=== PATIENT | male | born 1975 | race Caucasian/White ===

== ENCOUNTER → 2017-05-04 | Outpatient (CLI) | payer OTHER ==
[2017-05-04 14:28] LABS: ALT 55 U/L (21-72); AST 35 U/L (17-59); Alkaline Phosphatase 56 U/L (38-126); Anion Gap 12 mmol/L; Blood Urea Nitrogen 14 mg/dL (9-20); Calcium 9.5 mg/dL (8.4-10.2); Carbon Dioxide 25 mmol/L (22-30); Chloride 104 mmol/L (98-107); Cholesterol 274 mg/dL (<200); Glucose 86 mg/dL (74-99); HDL Cholesterol 52 mg/dL (40-60); Non-African American GFR(MDRD) >60 (>60 ml/min/1.73 sqM); Sodium 141 mmol/L (137-145); Total Bilirubin 0.5 mg/dL (0.2-1.3); Total Protein 8.1 g/dL (6.3-8.2)
== END | disposition home or self-care (01) ==
LOC: LABWHC1 13:48
PROVIDERS: ATTEND Internal Medicine Cardiovascular Disease
DX: E78.5 Hyperlipidemia, unspecified (principal); I10 Essential (primary) hypertension; I25.10 Atherosclerotic heart disease of native coronary artery without angina pectoris
CPT/HCPCS: 36415; 80053; 80061

== ENCOUNTER 2017-10-10 10:36 | Day surgery (SDC) | payer OTHER ==
[2017-10-05 11:52] VITALS: BMI 32.2
[~2017-10-10 10:36] MED LIST: DEXAMETHASONE SOD PHOSPHATE 10 MG/ML 1 ML VIAL IV ONE; HYDROmorphone 0.5 MG/0.5 ML SYRINGE IVP PRN; LACTATED RINGERS 1,000 ML IV SCH; ONDANSETRON 4 MG/2 ML VIAL IVP ONE; Pre Op ABX Message 1 EACH MISC MISCELLANE ONE
[2017-10-10] MEDS ORDERED: fentaNYL (PF) 50 MCG/ML 2 ML AMP ONE (12:03)
[2017-10-10] MEDS ORDERED: MIDAZOLAM 2 MG/2 ML VIAL ONE (12:03)
[2017-10-10] MEDS ORDERED: DEXAMETHASONE SOD PHOS (MDV) 100 MG/10 ML VIAL ONE (12:03)
[2017-10-10] MEDS ORDERED: LIDOCAINE 1% INJ 10MG/ML (20 ML MDV) ONE (12:03)
[2017-10-10] MEDS ORDERED: SUCCINYLCHOLINE CHLORIDE VIAL 200 MG/10 ML VIAL IV ONE (12:03)
[2017-10-10] MEDS ORDERED: PROPOFOL 10 MG/ML 20 ML VIAL IV ONE (12:03)
[2017-10-10] MEDS ORDERED: LIDOCAINE 1%-EPI 1:100,000 20 ML VIAL SQ ONE ×2 (12:26)
[2017-10-10] MEDS ORDERED: OXYMETAZOLINE 0.05% NASL SPRAY 1 SPRAY BOTTLE NASAL ONE (12:26)
[2017-10-10] MEDS ORDERED: BACITRACIN 500 UNIT/GM OINT 28.4 GM TUBE TOPICAL ONE (12:47)
--- NOTE | 2017-10-10 12:54 | P.OP ---
Date of Procedure: 10/10/17 Preoperative Diagnosis: Deviated nasal septum Inferior turbinate hypertrophy Postoperative Diagnosis: Same Procedure(s) Performed: Septoplasty Outfracture and submucous resection of the inferior turbinates Anesthesia: LAURA Surgeon: Royal Arriaza Estimated Blood Loss (ml): 5 Pathology: other (Nasal septal bone and cartilage) Condition: stable Disposition: PACU Indications for Procedure: This is a 42-year-old white male with a chronic history of nasal airway obstruction bilaterally who did not improve with medical management Operative Findings: Septum deviated to the left anteriorly to the right posteriorly and bilateral inferior turbinate hypertrophy Description of Procedure: The patient was brought in the operative suite and placed in a supine position. The patient underwent induction of general anesthesia with oral endotracheal intubation without difficulty. The patient was prepped and draped in usual aseptic fashion. 1% lidocaine with 1-100,000 epinephrine was infused submucosally both sides of the nasal septum. While this was taking vasoconstrictive effect the inferior turbinates were infractured with the [place] elevator with partial submucous resection inferior turbinates performed with Coblation and then outfractured with the [place] elevator. The Coblation ablated a portion of the submucosal soft tissue. A left hemitransfixion incision was made with the mucoperichondrial and mucoperiosteal flap on the left elevated. Bony cartilaginous junction was disarticulated and mucoperiosteal left on the right was elevated. Bony nasal septal deformities were removed with Isaac forceps. An inferior cartilaginous strip was removed leaving a full 1.5 cm caudal strut. Checking intranasally this corrected the nasoseptal deformities and the hemitransfixion incision was closed with a running 4-0 chromic suture. Bilateral Kate airway splints coated with bacitracin ointment placed in nasal cavities and sutured trans-septally with a 4-0 Vicryl suture. The patient was suctioned in oral gastric fashion and was allowed to emerge from general anesthesia having tolerated procedure well. The patient was extubated in the operating suite and transferred to the postop recovery area in satisfactory condition.
[2017-10-10 13:18] VITALS: TEMP 97.7
[2017-10-10] MEDS ORDERED: MORPHINE SULFATE 4 MG/ML SYRINGE IV ONE ×3 (13:29→14:10)
[2017-10-10] MEDS ORDERED: ONDANSETRON 4 MG/2 ML VIAL IVP ONE (13:34)
[2017-10-10] MEDS ORDERED: HYDROcodone/APAP 5-325MG 1 EACH TAB PO ONE (15:04)
[2017-10-10 15:54] VITALS: BP 114/72; PULSE 68; RESP 18
== END 2017-10-10 16:17 | disposition home or self-care (01) ==
LOC: OR 10:36
PROVIDERS: ATTEND Otolaryngology
DX: J34.2 Deviated nasal septum (principal); J34.3 Hypertrophy of nasal turbinates; E78.5 Hyperlipidemia, unspecified; J44.9 Chronic obstructive pulmonary disease, unspecified; I25.2 Old myocardial infarction; G43.909 Migraine, unspecified, not intractable, without status migrainosus; E78.00 Pure hypercholesterolemia, unspecified; Z95.5 Presence of coronary angioplasty implant and graft; Z79.899 Other long term (current) drug therapy; Z91.041 Radiographic dye allergy status; Z91.030 Bee allergy status; Z91.013 Allergy to seafood; Z91.048 Other nonmedicinal substance allergy status; Z91.09 Other allergy status, other than to drugs and biological substances; Z79.891 Long term (current) use of opiate analgesic; Z79.52 Long term (current) use of systemic steroids; Z79.2 Long term (current) use of antibiotics; Z82.49 Family history of ischemic heart disease and other diseases of the circulatory system
CPT/HCPCS: 88300; 30520; 30140; J2250; J0330; J2270; J1100 ×2; J2405; J2001; J3010; J2704

== ENCOUNTER → 2022-05-19 | Outpatient (CLI) | payer OTHER ==
--- NOTE | 2022-05-21 08:43 | CT ---
EXAMINATION TYPE: CT abdomen pelvis wo con DATE OF EXAM: 05/20/2022 COMPARISON: None HISTORY: Abdominal pain, lack of appetite, blood in stool x1 year. Oral contrast only CT DLP: 1194.70 mGycm Automated exposure control for dose reduction was used. TECHNIQUE: Helical acquisition of images from the lung bases through the pelvis. Patient received or al contrast only. FINDINGS: Lack of intravenous contrast could compromise sensitivity. There is no evident pneumoperito neum, retroperitoneal adenopathy, or ascites. Aorta shows normal caliber. LUNG BASES: No significant abnormality is appreciated. AORTA: No significant abnormality is appreciated. LIVER/GB: Liver shows low attenuation likely due to hepatic steatosis. Patient is post cholecystectom y.. PANCREAS: No significant abnormality is seen. SPLEEN: No significant abnormality is seen. ADRENALS: No significant abnormality is seen. KIDNEYS: No significant abnormality is seen. REPRODUCTIVE ORGANS: No significant abnormality is seen. URINARY BLADDER: No significant abnormality is seen, nondistended. BOWEL: Thickening of the sigmoid colon may be due to lack of distention or muscular hypertrophy, ind eterminate, no evident bowel obstruction. No evident appendicitis. FREE AIR: No Free Air is visible. ASCITES: None visible. PELVIC ADENOPATHY: None visualized. RETROPERITONEAL ADENOPATHY: No Retroperitoneal Adenopathy visible. OSSEOUS STRUCTURES: Spinal spondylosis noted. IMPRESSION: HEPATIC STEATOSIS, POSTOP CHANGES, NONCONTRAST EXAM, NONSPECIFIC FINDINGS DESCRIBED ABOVE.
== END | disposition home or self-care (01) ==
LOC: RADCTMAIN 16:57
PROVIDERS: ATTEND Internal Medicine Gastroenterology
DX: K76.0 Fatty (change of) liver, not elsewhere classified (principal)
CPT/HCPCS: 74176

== ENCOUNTER → 2022-10-23 | Day surgery (SDC) | payer OTHER ==
[2022-10-23 07:19] VITALS: BP 139/98; PULSE 64; RESP 18; TEMP 97.1
== END ==
LOC: ORWHC2ENDO 06:26
PROVIDERS: ATTEND Internal Medicine Gastroenterology
DX: R10.9 Unspecified abdominal pain (principal)
CPT/HCPCS: 91110

== ENCOUNTER 2023-05-05 23:44 | Inpatient (IN) | payer OTHER ==
[2023-05-06] MEDS ORDERED: ASPIRIN 81 MG PO STA ×2 (00:11→00:34)
[2023-05-06] MEDS ORDERED: NITROGLYCERIN SL TABS 0.4 MG TAB SUBLINGUAL STA (00:11)
--- NOTE | 2023-05-06 00:14 | ED ---
Chest Pain HPI - General Chief Complaint: Chest Pain Stated Complaint: Chest Pain Time Seen by Provider: 05/06/23 00:02 Source: patient Mode of arrival: ambulatory Limitations: no limitations - History of Present Illness Initial Comments: This patient is 47-year-old man who presents evaluation of upper substernal chest pain that developed within the past couple of hours. The patient notes associated nausea and dyspnea. Patient has not noted worsening or relieving factors. MD Complaint: chest pain Onset/Timin -: hour(s) Onset: during rest Pain Location: substernal Severity: moderate Quality: other (Cramping) Consistency: constant Improves With: nothing Worsens With: nothing Anginal Symptoms: nausea Treatments Prior to Arrival: none - Related Data Home Medications Medication Instructions Recorded Confirmed Superbeets 1 tab PO DAILY 05/06/23 05/06/23 Allergies Allergy/AdvReac Type Severity Reaction Status Date / Time Iodinated Contrast Media AdvReac HANDS/FEET Verified 05/10/23 06:22 [Iodinated Contrast- Oral SWELL THEN and IV Dye] SKIN PEELS OFF Review of Systems ROS Statement: Those systems with pertinent positive or pertinent negative responses have been documented in the HPI. ROS Other: All systems not noted in ROS Statement are negative. Constitutional: Denies: fever, chills, weakness Respiratory: Denies: cough, dyspnea Cardiovascular: Reports: chest pain. Denies: palpitations, orthopnea, edema, syncope Gastrointestinal: Reports: nausea. Denies: abdominal pain, vomiting, diarrhea Genitourinary: Denies: dysuria, hematuria Musculoskeletal: Denies: back pain Skin: Denies: rash Neurological: Denies: headache, weakness EKG Findings - EKG Results: EKG: interpreted by ERMElli, sinus rhythm EKG shows: bradycardia (Rate 49 bpm) - Blocks, [place], Hypertrophy, ST Abn: Chamber hypertrophy or enlargement: only voltage criteria for left ventricular hypertrophy Past Medical History Past Medical History: Asthma, Coronary Artery Disease (CAD), GERD/Reflux, Hearing Disorder / Deafness, Hyperlipidemia, Hypertension, Myocardial Infarction ([place]), Skin Disorder Additional Past Medical History / Comment(s): Blood loss and vomiting in the mornings/pt states occasionally will see bright red blood in stool but also states has had hemorrhoids in the past/hemorroids banded, hiatal hernia, sinus problems, recent cat scan of chest which pt states was told could asthma or the "starting of copd", pt states he gets SOB fairly easily, concussion many years ago, dry hands/skin cracks, bilateral tinnitis. Last Myocardial Infarction Date:: 2007 History of Any Multi-Drug Resistant Organisms: None Reported Past Surgical History: Cholecystectomy, Heart Catheterization Additional Past Surgical History / Comment(s): WISDOM TEETH REMOVED UNDER ANESTHESIA. SMALL TUMOR REMOVED FROM LT ARM/BENIGN. COLONOSCOPY/some "inflammed areas" Past Anesthesia/Blood Transfusion Reactions: Motion Sickness Additional Past Anesthesia/Blood Transfusion Reaction / Comment(s): Pt has never had a blood transfusion. Past Psychological History: No Psychological Hx Reported Smoking Status: Never smoker - Past Family History Mother Family Medical History: No Reported History Additional Family Medical History / Comment(s): kidney stones, cholecystectomy Father Family Medical History: Coronary Artery Disease (CAD) Additional Family Medical History / Comment(s): Patient's paternal grandfather had coronary artery disease with CABG in his 50s General Exam Limitations: no limitations General appearance: alert, in no apparent distress Head exam: Present: atraumatic, normocephalic Eye exam: Present: normal appearance. Absent: scleral icterus, conjunctival injection ENT exam: Present: normal oropharynx Neck exam: Present: normal inspection Respiratory exam: Present: normal lung sounds bilaterally. Absent: respiratory distress, wheezes, rales, rhonchi, stridor, accessory muscle use Cardiovascular Exam: Present: normal rhythm, bradycardia, normal heart sounds. Absent: systolic murmur, diastolic murmur, rubs, gallop GI/Abdominal exam: Present: soft. Absent: distended, tenderness, guarding, rebound, rigid, mass Extremities exam: Present: normal inspection, normal capillary refill. Absent: pedal edema, calf tenderness Back exam: Present: normal inspection. Absent: CVA tenderness (R), CVA tenderness (L) Neurological exam: Present: alert Skin exam: Present: warm, dry, intact, normal color. Absent: rash Course Vital Signs 05/05/23 05/06/23 05/06/23 23:52 00:23 02:00 Temperature 98.2 F Pulse Rate 48 L 50 L 54 L Respiratory 18 19 19 Rate Blood Pressure 108/74 128/90 127/91 O2 Sat by Pulse 98 Oximetry 05/06/23 05/06/23 05/06/23 03:43 05:58 10:34 Temperature Pulse Rate 56 L 47 L 62 Respiratory 19 18 16 Rate Blood Pressure 134/94 112/70 119/74 O2 Sat by Pulse 100 Oximetry Chest Pain MDM - [facility] Patient's 47-year-old man with chest pain found to have mild elevation of troponin. The initial ECG does appear to show some less than [address] elevation in leads 1 and aVL. The patient started on aspirin, nitrates, morphine, heparin. Case discussed with Dr. Choi. Patient does continue to have some symptoms over mild. At this point medical management recommended and they'll see patient first thing. The patient had chest x-ray which I interpreted as being negative for acute infiltrate, thorax, congestive heart failure. Was pt. sent in by a medical professional or institution (, PA, AWS CONSULTANT, urgent care, hospital, or fpc...) When possible be specific @ -[No] Did you speak to anyone other than the patient for history (EMS, parent, family, police, friend...)? What history was obtained from this source @ -[No] Did you review nursing and triage notes (agree or disagree)? Why? @ -[I reviewed and agree with nursing and triage notes] Were old charts reviewed (outside hosp., previous admission, EMS record, old EKG, old radiological studies, urgent care reports/EKG's, fpc records)? Report findings @ -[No old charts were reviewed] Differential Diagnosis (chest pain, altered mental status, abdominal pain women, abdominal pain men, vaginal bleeding, weakness, fever, dyspnea, syncope, headache, dizziness, GI bleed, back pain, seizure, CVA, palpatations, mental health, musculoskeletal)? @ -[Differential Chest Pain: Stable Angina, Unstable Angina, STEMI, NSTEMI Aortic Dissection, Pneumothorax, Musculoskeletal, Esophageal Spasm GERD, Cholecystitis, Pancreatitis, Zoster, this is not meant to be an all-inclusive list. EKG interpreted by me (3pts min.). @ -[I interpreted As above] X-rays interpreted by me (1pt min.). @ -[I interpreted as above CT interpreted by me (1pt min.). @ -[None done] U/S interpreted by me (1pt. min.). @ -[None done] What testing was considered but not performed or refused? (CT, X-rays, U/S, labs)? Why? @ -[None] What meds were considered but not given or refused? Why? @ -[None] Did you discuss the management of the patient with other professionals (professionals i.e. , PA, AWS CONSULTANT, lab, RT, psych nurse, social service assistant, field representatives director, teacher, surveillance officer, case repairer)? Give summary @ -[I discussed the case with both the admitting physician and with siphon operator on-call and there treatment recommendations are incorporated Was smoking cessation discussed for >3mins.? @ -[No] Was critical care preformed (if so, how long)? @ -[Yes, 35 minutes Were there social determinants of health that impacted care today? How? (Homelessness, low income, unemployed, alcoholism, drug addiction, transportation, low edu. Level, literacy, decrease access to med. care, care home, rehab)? @ -[No] Was there de-escalation of care discussed even if they declined (Discuss DNR or withdrawal of care, Hospice)? DNR status @ -[No] What co-morbidities impacted this encounter? (DM, HTN, Smoking, COPD, CAD, Cancer, CVA, ARF, Chemo, Hep., AIDS, mental health diagnosis, sleep apnea, morbid obesity)? @ -[None] Was patient admitted / discharged? Hospital course, mention meds given and route, prescriptions, significant lab abnormalities, going to OR and other pertinent info. @ -[The patient is admitted to have further evaluation and treatment for chest pain/acute coronary syndrome. Undiagnosed new problem with uncertain prognosis? @ -[No] Drug Therapy requiring intensive monitoring for toxicity (Heparin, Nitro, Insulin, Cardizem)? @ -[Heparin Were any procedures done? @ -[No] Diagnosis/symptom? @ -[Acute coronary syndrome with elevated troponin Acute, or Chronic, or Acute on Chronic? @ -[Acute Uncomplicated (without systemic symptoms) or Complicated (systemic symptoms)? @ -[default] Side effects of treatment? @ -[No] Exacerbation, Progression, or Severe Exacerbation? @ -[No] Poses a threat to life or bodily function? How? (Chest pain, [place], [place], pneumonia, PE, COPD, DKA, ARF, appy, cholecystitis, CVA, Diverticulitis, Homicidal, Suicidal, threat to staff... and all critical care pts) @ -[Yes untreated chest pain of cardiac origin may progress to [place]/ Disposition Clinical Impression: Coronary syndrome, acute Disposition: ADMITTED IP TO THIS HOSP Condition: Serious Is patient prescribed a controlled substance at d/c from ED?: No
[2023-05-06 00:27] LABS: Basophils % (A) 0 %; Eosinophils # (A) 0.2 k/uL (0-0.7); Eosinophils % (A) 3 %; HCT 40.8 % (39.0-53.0); HGB 13.7 gm/dL (13.0-17.5); Lymphocytes # (A) 2.9 k/uL (1.0-4.8); Lymphocytes % (A) 46 %; MCH 31.6 pg (25.0-35.0); MCHC 33.5 g/dL (31.0-37.0); MCV 94.2 fL (80.0-100.0); Mean Platelet Volume 7.5; Monocytes # (A) 0.5 k/uL (0-1.0); Monocytes % (A) 7 %; Neutrophils # (A) 2.6 k/uL (1.3-7.7); Neutrophils % (A) 41 %; Platelet Count 320 k/uL (150-450); RBC 4.33 m/uL (4.30-5.90); RDW 12.9 % (11.5-15.5); WBC 6.3 k/uL (3.8-10.6)
[2023-05-06 00:49] LABS: ALT 35 U/L (4-49); AST 34 U/L (17-59); African American GFR (CKD) 87 (>60 ml/min/1.73 sqM); Albumin 4.3 g/dL (3.5-5.0); Alkaline Phosphatase 52 U/L (38-126); Amylase 71 U/L (30-110); Anion Gap 14 mmol/L; Blood Urea Nitrogen 13 mg/dL (9-20); Calcium 9.1 mg/dL (8.4-10.2); Carbon Dioxide 21 mmol/L (22-30); Chloride 103 mmol/L (98-107); Glucose 107 mg/dL (74-99); Lipase 99 U/L (23-300); Non-African American GFR(CKD) 76 (>60 ml/min/1.73 sqM); Sodium 138 mmol/L (137-145); Total Bilirubin 0.3 mg/dL (0.2-1.3); Total Protein 7.5 g/dL (6.3-8.2)
[2023-05-06 00:50] LABS: INR 0.9 (<1.2); Partial Thromboplastin Time 24.5 sec (22.0-30.0); Prothrombin Time 9.9 sec (9.0-12.0)
[2023-05-06] MEDS ORDERED: HEPARIN SODIUM 1,000 UN/ML (10ML VL) IV ONE ×2 (01:15→13:15)
[2023-05-06] MEDS ORDERED: MORPHINE SULFATE 4 MG/ML SYRINGE IV STA (01:17)
[2023-05-06] MEDS: HEPARIN SOD,PORK IN 0.45% NACL 25,000 UNIT in 0.45% NACL 1 250ML.BAG IV SCH ×2 (01:25→14:40)
[2023-05-06] MEDS ORDERED: ATORVASTATIN 80 MG TAB PO STA (01:29)
[2023-05-06] MEDS ORDERED: NITROGLYCERIN OINT 1 INCH/GM PACKET TOPICAL STA (01:29)
[2023-05-06] MEDS ORDERED: NITROGLYCERIN SL TABS 0.4 MG TAB SUBLINGUAL PRN (01:33)
--- NOTE | 2023-05-06 02:26 | XR ---
EXAM: XR Chest, 2 Views CLINICAL HISTORY: ITS.REASON XR Reason: Chest Pain TECHNIQUE: Frontal and lateral views of the chest. COMPARISON: 09/20/2021. FINDINGS: Lungs: Unremarkable. No consolidative change. Pleural space: Unremarkable. No pneumothorax. No pleural effusions. Heart: Unremarkable. No cardiomegaly. Mediastinum: Cardiomediastinal silhouette unremarkable. Bones/joints: The osseous structures and soft tissues are unremarkable. Mild degenerative disc disease of the thoracic spine. IMPRESSION: No active disease.
[2023-05-06] MEDS: HEPARIN SODIUM 1,000 UN/ML (10ML VL) IV PRN (10:21)
[2023-05-06] MEDS: ATORVASTATIN 80 MG TAB PO SCH (10:30)
[2023-05-06] MEDS: NITROGLYCERIN OINT 1 INCH/GM PACKET TOPICAL SCH ×4 (10:30→18:23)
--- NOTE | 2023-05-06 12:15 | P.HPIM ---
History of Present Illness H&P Date: 05/06/23 History of present illness; patient 47-year-old gentleman with past medical hist ory significant for hypertension, hyperlipidemia and the ER because of chest pain that started last night. Patient stated he was all right last night when he started noticing central chest pain which was severe in intensity, nonradiating, associated with shortness of breath. Patient was complaining of nausea that time. No complain of diaphoresis. No aggravating or relieving factors associated with chest pain. Denied any palpitation. Denied any fever or chills. Because of chest pain, patient came to ER. Initial lab work done in the ER showed WBC 6.3, hemoglobin 13.7, platelet count 320, d-dimer 0.34 sodium 1:30, potassium 4, BUN 13, creatinine 1.14, troponin 0.257 EKG done in the ER heart rate 49, slight ST elevation noticeable in leads 1 and aVL, no reciprocal changes or T-wave inversion seen. Chest x-ray done in the ER showed no active disease Patient was started on heparin, ER physician discussed the case with on-call cardiology and EKGs, they recommended starting heparin and admission to medicine service REVIEW OF SYSTEMS: CONSTITUTIONAL: No fever, no malaise, no fatigue. HEENT: No recent visual problems or hearing problems. Denied any sore throat. CARDIOVASCULAR: As mentioned in HPI PULMONARY: As mentioned in HPI GASTROINTESTINAL: No diarrhea, no nausea, no vomiting, no abdominal pain. NEUROLOGICAL: No headaches, no weakness, no numbness. HEMATOLOGICAL: Denies any bleeding or petechiae. GENITOURINARY: Denies any burning micturition, frequency, or urgency. MUSCULOSKELETAL/RHEUMATOLOGICAL: Denies any joint pain, swelling, or any muscle pain. ENDOCRINE: Denies any polyuria or polydipsia. The rest of the 14-point review of systems is negative. PHYSICAL EXAMINATION: GENERAL: The patient is alert and oriented x3, not in any acute distress. Well developed, well nourished. HEENT: Pupils are round and equally reacting to light. EOMI. No scleral icterus. No conjunctival pallor. Normocephalic, atraumatic. No pharyngeal erythema. No thyromegaly. CARDIOVASCULAR: S1 and S2 present. No murmurs, rubs, or gallops. PULMONARY: Chest is clear to auscultation, no wheezing or crackles. ABDOMEN: Soft, nontender, nondistended, normoactive bowel sounds. No palpable organomegaly. MUSCULOSKELETAL: No joint swelling or deformity. EXTREMITIES: No cyanosis, clubbing, or pedal edema. NEUROLOGICAL: Gross neurological examination did not reveal any focal deficits. SKIN: No rashes. Assessment and plan Acute coronary syndrome Sinus Bradycardia Hyperlipidemia Monitor vital signs Monitor CBC Monitor CMP Continue telemetry monitoring Trend troponin Ordered 2-D echo Continue pharmacy dose heparin Ordered Nitropaste Consult cardiology Resume home meds Labs and medication were reviewed.. Continue same treatment. Continue with symptomatic treatment. Resume home medication. Monitor labs and vitals. DVT and GI prophylaxis. Further recommendations as per clinical course of the patient Dictation was produced using [employer] dictation software. please excuse any grammatical, word or spelling errors. Past Medical History Past Medical History: Asthma, Coronary Artery Disease (CAD), GERD/Reflux, Hearing Disorder / Deafness, Hyperlipidemia, Hypertension, Myocardial Infarction ([place]), Skin Disorder Additional Past Medical History / Comment(s): Blood loss and vomiting in the mornings/pt states occasionally will see bright red blood in stool but also states has had hemorrhoids in the past/hemorroids banded, hiatal hernia, sinus problems, recent cat scan of chest which pt states was told could asthma or the "starting of copd", pt states he gets SOB fairly easily, concussion many years ago, dry hands/skin cracks, bilateral tinnitis. Last Myocardial Infarction Date:: 2007 History of Any Multi-Drug Resistant Organisms: None Reported Past Surgical History: Cholecystectomy, Heart Catheterization Additional Past Surgical History / Comment(s): WISDOM TEETH REMOVED UNDER ANESTHESIA. SMALL TUMOR REMOVED FROM LT ARM/BENIGN. COLONOSCOPY/some "inflammed areas" Past Anesthesia/Blood Transfusion Reactions: Motion Sickness Additional Past Anesthesia/Blood Transfusion Reaction / Comment(s): Pt has never had a blood transfusion. Past Psychological History: No Psychological Hx Reported Smoking Status: Never smoker - Past Family History Mother Family Medical History: No Reported History Additional Family Medical History / Comment(s): kidney stones, cholecystectomy Medications and Allergies Home Medications Medication Instructions Recorded Confirmed Type Superbeets 1 tab PO DAILY 05/06/23 05/06/23 History Allergies Allergy/AdvReac Type Severity Reaction Status Date / Time Iodinated Contrast Media AdvReac HANDS/FEET Verified 10/23/22 07:12 [Iodinated Contrast- Oral SWELL THEN and IV Dye] SKIN PEELS OFF Physical Exam Vitals: Vital Signs Temp Pulse Resp BP Pulse Ox 05/06/23 05:58 47 L 18 112/70 05/06/23 03:43 56 L 19 134/94 05/06/23 02:00 54 L 19 127/91 05/06/23 00:23 50 L 19 128/90 05/05/23 23:52 98.2 F 48 L 18 108/74 98 Intake and Output 05/05/23 05/06/23 05/06/23 22:59 06:59 14:59 Other: Weight 108.862 kg Results CBC & Chem 7: 05/06/23 00:18 05/06/23 00:18 Labs: Abnormal Lab Results - Last 24 Hours (Table) 05/06/23 05/06/23 05/06/23 Range/Units 00:18 00:18 03:38 APTT (22.0-30.0) sec Carbon Dioxide 21 L (22-30) mmol/L Glucose 107 H (74-99) mg/dL Troponin I 0.257 H* 0.272 H* (0.000-0.034) ng/mL 05/06/23 05/06/23 Range/Units 07:24 07:24 APTT 30.6 H (22.0-30.0) sec Carbon Dioxide (22-30) mmol/L Glucose (74-99) mg/dL Troponin I 1.140 H* (0.000-0.034) ng/mL
[2023-05-06] MEDS ORDERED: VERAPAMIL 2.5 MG/ML 2 ML AMP ONE (12:39)
[2023-05-06] MEDS ORDERED: LIDOCAINE 1% INJ 10MG/ML (20 ML MDV) ONE (12:39)
[2023-05-06] MEDS ORDERED: IV FLUID CONTINUATION 500 ML IV ONE (12:55)
[2023-05-06] MEDS ORDERED: diphenhydrAMINE 50 MG/ML 1 ML VIAL ONE (12:56)
[2023-05-06] MEDS ORDERED: methylPREDNISolone SOD SUCCI 125 MG/2 ML VIAL ONE (12:57)
[2023-05-06] MEDS ORDERED: diphenhydrAMINE 50 MG/ML 1 ML VIAL IVP ONE (13:01)
[2023-05-06] MEDS ORDERED: methylPREDNISolone SOD SUCCI 125 MG/2 ML VIAL IV ONE (13:01)
[2023-05-06] MEDS ORDERED: MIDAZOLAM 2 MG/2 ML VIAL IVP ONE (13:02)
[2023-05-06] MEDS ORDERED: LIDOCAINE 1% INJ 10MG/ML (20 ML MDV) SQ ONE (13:03)
[2023-05-06] MEDS ORDERED: VERAPAMIL SYRINGE (5 MG/10 ML) INTRAARTER ONE (13:04)
[2023-05-06] MEDS ORDERED: IOPAMIDOL-370 100ML BTL INJ ONE ×3 (13:14→13:17)
[2023-05-06] MEDS ORDERED: RX INFO: IV CONTRAST WAS GIVEN 1 EACH MISC MISCELLANE PRN (13:31)
--- NOTE | 2023-05-06 13:36 | P.PCN ---
Date of Procedure: 05/06/23 Operative Findings: CARDIAC CATHETERIZATION PERFORMING PHYSICIAN: Kyle Talavera MD, RPVI PROCEDURE PERFORMED: 1. Selective right and left coronary angiogram 2. Left heart catheterization 3. Ultrasound-guided access of the right radial artery INDICATION: Acute non-ST elevation myocardial infarction COMPLICATION: None APPROACH: Right radial artery LEVEL OF SEDATION: Moderate with a sedation length of 19 minutes PROCEDURE DESCRIPTION: After obtaining an informed consent, the patient was brought to cardiac union laborer. Local anesthesia was performed using lidocaine subcutaneously. The right radial artery was cannulated using Seldinger technique, the guidewire passed easily, following that we advanced a 5-Lith[place]ian sheath dilator assembly, the wire and dilator were removed and sheath was flushed. Following that, 2 mg of verapamil along with 4000 unit heparin were given. Selective right and left coronary angiogram using a 6-Lithuanian JR4 and JL 3.5 catheters. Following that we did left heart catheterization using 6-Lithuanian pigtail catheter. The procedure was completed there was no complication. SELECTIVE CORONARY ANGIOGRAM: The right coronary artery: Large-caliber vessel and a dominant vessel. The RCA has moderate disease in the midportion. No high-grade stenosis was identified. Distally bifurcates into PDA and PLV branches and both appear to have mild disease only Left main: Has mild disease only. Bifurcates into an LCx and LAD The left circumflex: Medium caliber vessel. The left circumflex appears to be chronically occluded in the midportion. Gives rises into the first OM branch which works as a ramus intermedius has a critical lesion in the ostium. OM1 appeared to be small to medium caliber vessel appears to be chronically occluded as well The left anterior descending artery: Large caliber vessel. The proximal LAD has a tubular lesion appears to be in the range of 70%. The mid LAD has another lesion appears to be in the range of 70-80%. The LAD after that as other tibial lesion after the bifurcation of a medium size diagonal branch and the LAD lesion appears to be in the range of 99.9% HEMODYNAMICS: The LVEDP was 12 mmHg was no significant gradient across aortic valve CONCLUSION: 1. Severe and diffuse disease involving the left anterior descending artery with disease in the proximal and mid and mid to distal portion. 2. Chronic total occlusion of the left circumflex 3. Intermediate disease involving the right coronary artery appeared to be nonflow limiting 4. Normal left-sided filling POSTPROCEDURE MANAGEMENT: Giving the above anatomy with the LAD I would advise the patient to be evaluated by cardiothoracic surgeon for the evaluation of CABG
[2023-05-06] MEDS ORDERED: SODIUM CHLORIDE 0.9% 1,000 ML IV SCH (13:45)
[2023-05-06 13:52] LABS: Glucose,Whole Blood 87 mg/dL (70-110)
--- NOTE | 2023-05-06 15:12 | P.CRDCN ---
History of Present Illness Consult date: 05/06/23 Consult reason: chest pain History of present illness: This is Mike Spencer NP, I'm dictating on behalf of Dr. Choi's H&P and A&P The patient was interviewed and examined. HPI: Patient is a pleasant 47-year-old male with a past medical history significant for asthma, coronary artery disease, GERD, hyperlipidemia, hypertension, myocardial infarction, bilateral tinnitus, asthma, and dry skin who presented to the hospital with complaints of chest pain. Patient reports that he started experiencing chest pain yesterday, that was substernal, mostly pressure in sensation, that was radiating up his neck. Patient states this pressure continued until approximately the last hour prior to us evaluating the patient. He states it is much better at this time. Patient does have a significant medical history for a myocardial infarction at 33 years of age, but he had a cardiac catheterization at that time and states that it was clear for a ny vessel disease. At this time the patient denies chest pain, shortness of breath, heart palpitations, nausea, vomiting, diarrhea, dizziness, and syncope. Patient demonstrated initial elevated troponin in the emergency department. Patient's EKG demonstrated sinus bradycardia with no obvious significant changes except for possible mild ST elevation in lead I. patient is being recommended for PCI today. ROS: [No fever, chills, or rigors] [no cough, phlegm, or expectoration] [no nausea, vomiting, or diarrhea] [no hematuria, dysuria] [no musculoskelatal complaints] [no strokes or seizures] [no skin lesions] EXAMINATION: GENERAL: Well-appearing, well-nourished and in no acute distress. NECK: Supple without JVD or thyromegaly. LUNGS: Breath sounds clear to auscultation bilaterally. Respiration equal and unlabored. No wheezes, rales or rhonchi. HEART: Regular rate and rhythm without murmurs, rubs or gallops. S1 and S2 heard. EXTREMITIES: Normal range of motion, no edema. No clubbing or cyanosis. Peripheral pulses intact and strong. REVIEW OF LABS, ECG & MEDICAL DATA: LABS: White count 6.3, he will and 13.7, platelets 320, d-dimer 0.34, sodium 138, potassium 4.0, chloride 103, BUN 13, creatinine 1.14, hemoglobin A1c 5.6, calcium 9.1, magnesium 2.0, troponin 3-0.257, 0.272, 1.140 EKG: Sinus bradycardia, possible ST elevation in lead I, first-degree block IMAGING: Chest x-ray dated 05/06/2023 demonstrates no active disease. VITALS: Pulse 47, respirations 18, blood pressure 112/70, O2 saturation 100% on room air IMPRESSION: 1. Non-ST elevated myocardial infarction 2. Sinus bradycardia with first-degree heart block 3. Severe triple-vessel disease, per PCI. PLAN: Check lipid panel. Patient was scheduled for PCI with Dr. Talavera, which was completed. Patient has severe and diffuse disease involving the left anterior descending artery with disease in the proximal and mid to distal portion, chronic total occlusion of the left circumflex, intermediate disease involving the right coronary artery appearing to be nonflow limiting, and normal left-sided filling. Due to patient's PCI results, recommend consultation with cardiothoracic surgery for possible CABG. Continue IV heparin at this time. Please insure patient follows up with Dr. Choi in the office after discharge. Further recommendations based on patient's clinical course. Thank you for the consult and allowing us to participate in the care of this patient. Past Medical History Past Medical History: Asthma, Coronary Artery Disease (CAD), GERD/Reflux, Hearing Disorder / Deafness, Hyperlipidemia, Hypertension, Myocardial Infarction ([place]), Skin Disorder Additional Past Medical History / Comment(s): Blood loss and vomiting in the mornings/pt states occasionally will see bright red blood in stool but also states has had hemorrhoids in the past/hemorroids banded, hiatal hernia, sinus problems, recent cat scan of chest which pt states was told could asthma or the "starting of copd", pt states he gets SOB fairly easily, concussion many years ago, dry hands/skin cracks, bilateral tinnitis. Last Myocardial Infarction Date:: 2007 History of Any Multi-Drug Resistant Organisms: None Reported Past Surgical History: Cholecystectomy, Heart Catheterization Additional Past Surgical History / Comment(s): WISDOM TEETH REMOVED UNDER ANESTHESIA. SMALL TUMOR REMOVED FROM LT ARM/BENIGN. COLONOSCOPY/some "inflammed areas" Past Anesthesia/Blood Transfusion Reactions: Motion Sickness Additional Past Anesthesia/Blood Transfusion Reaction / Comment(s): Pt has never had a blood transfusion. Past Psychological History: No Psychological Hx Reported Smoking Status: Never smoker - Past Family History Mother Family Medical History: No Reported History Additional Family Medical History / Comment(s): kidney stones, cholecystectomy Medications and Allergies Home Medications Medication Instructions Recorded Confirmed Type Superbeets 1 tab PO DAILY 05/06/23 05/06/23 History Allergies Allergy/AdvReac Type Severity Reaction Status Date / Time Iodinated Contrast Media AdvReac HANDS/FEET Verified 10/23/22 07:12 [Iodinated Contrast- Oral SWELL THEN and IV Dye] SKIN PEELS OFF Physical Exam Vitals: Vital Signs Temp Pulse Resp BP Pulse Ox 05/06/23 10:34 62 16 119/74 100 05/06/23 05:58 47 L 18 112/70 05/06/23 03:43 56 L 19 134/94 05/06/23 02:00 54 L 19 127/91 05/06/23 00:23 50 L 19 128/90 05/05/23 23:52 98.2 F 48 L 18 108/74 98 Intake and Output 05/06/23 05/06/23 05/06/23 06:59 14:59 22:59 Intake Total 325.136 Balance 325.136 Intake: IV 180 Intake, IV Titration 145.136 Amount Heparin Sod,Pork in 0.45% 145.136 NaCl 25,000 unit In 0.45 % NaCl 1 250ml.bag @ 9.19 UNITS/KG/HR 10.004 mls/ hr IV .Q24H [facility] Rx#: [id number] Other: Weight 108.862 kg Results 05/06/23 00:18 05/06/23 00:18 Cardiac Enzymes 05/06/23 05/06/23 05/06/23 Range/Units 00:18 00:18 03:38 AST 34 (17-59) U/L Troponin I 0.257 H* 0.272 H* (0.000-0.034) ng/mL 05/06/23 Range/Units 07:24 AST (17-59) U/L Troponin I 1.140 H* (0.000-0.034) ng/mL Coagulation 05/06/23 05/06/23 Range/Units 00:18 07:24 PT 9.9 (9.0-12.0) sec APTT 24.5 30.6 H (22.0-30.0) sec CBC 05/06/23 Range/Units 00:18 WBC 6.3 (3.8-10.6) k/uL RBC 4.33 (4.30-5.90) m/uL Hgb 13.7 (13.0-17.5) gm/dL Hct 40.8 (39.0-53.0) % Plt Count 320 (150-450) k/uL Comprehensive Metabolic Panel 05/06/23 Range/Units 00:18 Sodium 138 (137-145) mmol/L Potassium 4.0 (3.5-5.1) mmol/L Chloride 103 (98-107) mmol/L Carbon Dioxide 21 L (22-30) mmol/L BUN 13 (9-20) mg/dL Creatinine 1.14 (0.66-1.25) mg/dL Glucose 107 H (74-99) mg/dL Calcium 9.1 (8.4-10.2) mg/dL AST 34 (17-59) U/L ALT 35 (4-49) U/L Alkaline Phosphatase 52 (38-126) U/L Total Protein 7.5 (6.3-8.2) g/dL Albumin 4.3 (3.5-5.0) g/dL Current Medications Generic Name Dose Route Start Last Admin Trade Name Freq PRN Reason Stop Dose Admin Aspirin 325 mg 05/07/23 09:00 Aspirin 325 Mg Tab PO DAILY [facility] Atorvastatin Calcium 80 mg 05/06/23 09:00 05/06/23 10:30 Atorvastatin 80 Mg Tab PO 80 mg DAILY SUKHJINDER Administration Heparin Sodium (Porcine) 0 unit 05/06/23 01:15 05/06/23 10:21 Heparin Sodium 1,000 Un/Ml (10ml Vl) IV 4,000 unit PER PROTOCOL PRN Administration Low PTT Protocol Heparin Sodium/Sodium Chloride 250 mls @ 10.004 mls/hr 05/06/23 01:15 05/06/23 14:40 25,000 unit/ Sodium Chloride IV 11.94 units/kg/hr .Q24H SUKHJINDER 13 mls/hr Administration Protocol 9.19 UNITS/KG/HR Heparin Sodium (Porcine) 10, 1,001 mls @ 999 mls/hr 05/07/23 07:00 000 unit/ Sodium Chloride IRRIGATION 05/07/23 23:00 ONCE PRN INTRA-OP Heparin Sodium (Porcine) 2,500 250.5 mls @ 250 mls/hr 10/02/23 07:00 unit/ Sodium Chloride IRRIGATION 05/07/23 23:00 ONCE PRN INTRA-OP Sodium Chloride 1,000 mls @ 75 mls/hr 05/06/23 13:45 05/06/23 14:00 Saline 0.9% IV 05/06/23 18:46 75 mls/hr .[id number] SUKHJINDER Administration Metoprolol Succinate 25 mg 05/07/23 09:00 Metoprolol Succinate (Er) 25 Mg Tab.Er.24h PO DAILY [facility] Miscellaneous Information 1 each 05/06/23 13:31 Rx Info: Iv Contrast Was Given 1 Each Mis MISCELLANE 05/08/23 13:31 DAILY PRN Per Protocol Nitroglycerin 0.4 mg 05/06/23 01:33 Nitroglycerin Sl Tabs 0.4 Mg Tab SUBLINGUAL Q5M PRN Chest Pain Nitroglycerin 1 inch 05/06/23 06:00 05/06/23 14:00 Nitroglycerin Oint 1 Inch/Gm Packet TOPICAL 1 inch Q6HR SUKHJINDER Administration Intake and Output 05/06/23 05/06/23 05/06/23 06:59 14:59 22:59 Intake Total 325.136 Balance 325.136 Intake: IV 180 Intake, IV Titration 145.136 Amount Heparin Sod,Pork in 0.45% 145.136 NaCl 25,000 unit In 0.45 % NaCl 1 250ml.bag @ 9.19 UNITS/KG/HR 10.004 mls/ hr IV .Q24H [facility] Rx#: [id number] Other: Weight 108.862 kg 05/06/23 00:18 05/06/23 00:18
[2023-05-06 15:19] LABS: Appearance,Urine Clear (Clear); Bilirubin,Urine Negative (Negative); Blood,Urine Negative (Negative); Color,Urine Colorless; Glucose,Urine (UA) Negative (Negative); Ketones,Urine Negative (Negative); Leukocyte Esterase,Urine Negative (Negative); Nitrite,Urine Negative (Negative); PH, Urine 6.5 (5.0-8.0); Protein,Urine Negative (Negative); Specific Gravity,Urine 1.019 (1.001-1.035); Urobilinogen,Urine <2.0 mg/dL (<2.0)
--- NOTE | 2023-05-06 16:03 | US ---
EXAMINATION TYPE: US vein mapping BIL DATE OF EXAM: 05/06/2023 3:42 PM COMPARISON: NONE CLINICAL INDICATION: Male, 47 years old with history of preop cardiac surgery; pre op cardiac surgery SIDE PERFORMED: bilateral TECHNIQUE: Lower extremity saphenous vein is examined and measured utilizing real time linear array sonography. Patient History: Smoker: no Previous DVT: no Vascular Surgery: Discoloration: no Hypertension: no Diabetes: Paralysis: no Varicosities: no Edema: no DUPLEX FINDINGS: Greater Saphenous: Color flow seen Lesser Saphenous: Color flow seen Measurements in mm: Right Greater Saphenous: Groin: 6.6 x 7.7 mm High Thigh: 5.9 x 6.9 mm Mid Thigh: 3.8 x 4.1 mm Above Knee: 3.7 x 4.2 mm Knee: 3.9 x 4.9 mm Below Knee: 2.9 x 3.6 mm Mid Calf: 2.6 x 3.6 mm At Ankle: 2.8 x 3.1 mm Left Greater Saphenous: Groin: 6.2 x 6.6 mm High Thigh: 3.4 x 3.9 mm Mid Thigh: 4.3 x 4.7 mm Above Knee: 3.8 x 4.4 mm Knee: 4.3 x 4.9 mm Below Knee: 4.2 x 5.0 mm Mid Calf: 3.7 x 4.6 mm At Ankle: 2.6 x 3.1 mm IMPRESSION: 1. Bilateral GSV measurements listed above. 2. Performing surgeon to determine viability as conduit.
--- NOTE | 2023-05-06 16:05 | US ---
EXAMINATION TYPE: Pre-Operative Non-Invasive Evaluation of the hand for Potential Radial Artery Santosh navas, Measurements only DATE OF EXAM: 05/06/2023 3:41 PM CLINICAL INDICATION: Male, 47 years old with history of measurements only; pre op cardiac surgery SIDE PERFORMED: Left TECHNIQUE: Radial artery is measured utilizing real time linear array sonography. Dominant hand: right Duplex Findings: Radial Artery: Color flow seen Measurements in mm, transverse view: Left Radial: Proximal: 4.4 x 3.9 mm Mid: 3.7 x 3.7 mm Distal: 3.1 x 4.1 mm Color Doppler flow is noted throughout the visualized radial artery without significant occlusion IMPRESSION: Left radial artery measurements as listed above.
--- NOTE | 2023-05-06 16:09 | US ---
EXAMINATION TYPE: US carotid duplex BILAT DATE OF EXAM: 05/06/2023 COMPARISON: NONE CLINICAL INDICATION: Male, 47 years old with history of preop cardiac surgery; Pre op cardiac surgery TECHNIQUE: Carotid duplex ultrasound examination. Indirect Doppler criteria was utilized. FINDINGS: EXAM MEASUREMENTS: RIGHT: Peak Systolic Velocity (PSV) cm/sec ----- Right CCA: 101 ----- Right ICA: 75.2 ----- Right ECA: 103 ICA/CCA ratio: 0.74 RIGHT: End Diastole cm/sec ----- Right CCA: 12.3 ----- Right ICA: 26.8 ----- Right ECA: 0.0 LEFT: Peak Systolic Velocity (PSV) cm/sec ----- Left CCA: 108 ----- Left ICA: 80.6 ----- Left ECA: 131 ICA/CCA ratio: 0.75 LEFT: End Diastole cm/sec ----- Left CCA: 16.6 ----- Left ICA: 26.0 ----- Left ECA: 8.1 VERTEBRALS (direction of flow): Right Vertebral: Antegrade Left Vertebral: Antegrade Rhythm: Normal IMPRESSION: Mild atherosclerotic disease without evidence of significant stenosis.
--- NOTE | 2023-05-06 16:12 | CT ---
EXAMINATION TYPE: CT chest wo con CT DLP: 622.3 mGycm, Automated exposure control for dose reduction was used. DATE OF EXAM: 05/06/2023 4:00 PM COMPARISON: Chest radiograph from same day CLINICAL INDICATION:Male, 47 years old with history of eval aorta for calcification. TECHNIQUE: Multiple axial images were obtained through the chest. Sagittal and coronal reformats were created for review. Contrast used: None Oral contrast used: None FINDINGS: LUNGS/ PLEURA: The lung parenchyma appears unremarkable. AIRWAY: Patent and unremarkable. HEART: Size within normal limits.Increased density within the coronary arteries may relate to scleros is versus vascular stents. MEDIASTINUM: No gross evidence of adenopathy. VASCULATURE: No aortic aneurysm. No significant atherosclerotic disease MUSCULOSKELETAL: No acute osseous abnormalities SOFT TISSUES/LYMPH NODES: Unremarkable. LOWER NECK: No significant findings. UPPER ABDOMEN: No significant findings. IMPRESSION: 1. No acute intrathoracic process. 2. No significant for atherosclerotic disease of the aorta.
[2023-05-06] MEDS: ACETAMINOPHEN TAB 325 MG TAB PO PRN (22:38)
[2023-05-07] MEDS: NITROGLYCERIN OINT 1 INCH/GM PACKET TOPICAL SCH ×4 (00:56→18:44)
[2023-05-07] MEDS ORDERED: ALBUTEROL NEBULIZED 2.5 MG/3 ML INHALATION PRN (03:00)
--- NOTE | 2023-05-07 03:17 | P.CNPUL ---
History of Present Illness Consult date: 05/07/23 Requesting physician: Ledy Howard Reason for consult: other (Preoperative pulmonary clearance for open heart surgery) Chief complaint: Substernal chest pain History of present illness: I am seeing this patient in new consultation today 05/07/2023 on the cardiac stepdown unit for a preoperative pulmonary evaluation for a tentative CABG. Patient is a 47-year-old white male past medical history significant for mild intermittent asthma, hyperlipidemia, and hypertension. Denies any premature h istory of heart disease. Patient presented to the emergency room after developing substernal chest pressure which radiated up his neck that started at 11 PM on May 05, he presented to the hospital early the next morning. Patient was also experiencing some nausea and shortness of breath at that time. He did have a heart catheterization yesterday afternoon, and was found to have multivessel coronary artery disease. No PCI was performed. There was severe diffuse disease involving the left anterior descending artery, chronic total occlusion of the left circumflex, and moderate disease of the RCA. Cardiothoracic surgery was consulted for possible open-heart surgery. Patient is currently sitting up in bed, on room air, in no acute distress. He denies any current chest pain. He is on heparin infusion per protocol. Patient's pulmonary status seems to be stable. He does admit history of mild intermittent asthma In which he controls with when necessary albuterol. He states that he almost never needs to use his inhaler. Denies ever being a tobacco smoker, however, he does smoke marijuana daily. Bedside spirometry shows an FEV1 of 2.74 L or 72% of predicted. ECG on arrival showed sinus bradycardia with no significant ST elevation. There was less than 1 mm of elevation in lead 1. Troponins were elevated and are trending up at 0.257, 0.27, and 1.14 respectively. CBC on arrival was unremarkable. D-dimer not elevated. CMP unremarkable. Hemodynamically the patient seems stable. Review of Systems REVIEW OF SYSTEMS: CONSTITUTIONAL: Denies any recent significant weight loss or weight gain. EYES: Denies change in vision. EARS, NOSE, MOUTH, THROAT: Denies headaches, denies sore throat. CARDIOVASCULAR: Denies lightheadedness, palpitations, syncopal episodes, lower extremity swelling, orthopnea. Admits substernal chest pressure as described in HPI, this is currently resolved RESPIRATORY: Denies shortness of breath, cough, congestion or hemoptysis. GASTROINTESTINAL: Denies change in appetite, abdominal pain, nausea and vomiting, or diarrhea GENITOURINARY: Denies hematuria, denies infections. MUSKULOSKELETAL: Denies pain, denies swelling. INTEGUMENTARY: Denies rash, denies eczema. NEUROLOGICAL: Denies recent memory loss, no recent seizure activity. PSYCHIATRIC: Denies anxiety, denies depression. HEMATOLOGIC/LYMPHATIC: Denies anemia, denies enlarged lymph node Past Medical History Past Medical History: Asthma, Coronary Artery Disease (CAD), GERD/Reflux, Hearing Disorder / Deafness, Hyperlipidemia, Hypertension, Myocardial Infarction ([place]), Skin Disorder Additional Past Medical History / Comment(s): Blood loss and vomiting in the mornings/pt states occasionally will see bright red blood in stool but also states has had hemorrhoids in the past/hemorroids banded, hiatal hernia, sinus problems, recent cat scan of chest which pt states was told could asthma or the "starting of copd", pt states he gets SOB fairly easily, concussion many years ago, dry hands/skin cracks, bilateral tinnitis. Last Myocardial Infarction Date:: 2007 History of Any Multi-Drug Resistant Organisms: None Reported Past Surgical History: Cholecystectomy, Heart Catheterization Additional Past Surgical History / Comment(s): WISDOM TEETH REMOVED UNDER ANESTHESIA. SMALL TUMOR REMOVED FROM LT ARM/BENIGN. COLONOSCOPY/some "inflammed areas" Past Anesthesia/Blood Transfusion Reactions: Motion Sickness Additional Past Anesthesia/Blood Transfusion Reaction / Comment(s): Pt has never had a blood transfusion. Past Psychological History: No Psychological Hx Reported Smoking Status: Never smoker - Past Family History Mother Family Medical History: No Reported History Additional Family Medical History / Comment(s): kidney stones, cholecystectomy Medications and Allergies Home Medications Medication Instructions Recorded Confirmed Type Superbeets 1 tab PO DAILY 05/06/23 05/06/23 History Allergies Allergy/AdvReac Type Severity Reaction Status Date / Time Iodinated Contrast Media AdvReac HANDS/FEET Verified 10/23/22 07:12 [Iodinated Contrast- Oral SWELL THEN and IV Dye] SKIN PEELS OFF Physical Exam Vitals: Vital Signs Temp Pulse Pulse Resp BP BP Pulse Ox 05/07/23 02:00 60 16 05/07/23 00:00 98.5 F 60 16 133/79 97 05/06/23 20:00 98.2 F 60 18 120/66 96 05/06/23 16:10 98.3 F 53 L 16 119/72 97 05/06/23 15:23 53 L 05/06/23 14:46 51 L 16 148/93 05/06/23 14:16 52 L 12 138/98 95 05/06/23 13:46 98.4 F 56 L 12 138/104 96 05/06/23 10:34 62 16 119/74 100 05/06/23 05:58 47 L 18 112/70 05/06/23 03:43 56 L 19 134/94 Intake and Output 05/06/23 05/06/23 05/07/23 14:59 22:59 06:59 Intake Total 325.136 198.383 Balance 325.136 198.383 Intake: IV 180 Intake, IV Titration 145.136 80.383 Amount Heparin Sod,Pork in 0.45% 145.136 80.383 NaCl 25,000 unit In 0.45 % NaCl 1 250ml.bag @ 9.19 UNITS/KG/HR 10.004 mls/ hr IV .Q24H [facility] Rx#: [id number] Oral 118 Other: Voiding Method Toilet Toilet # Voids 1 GENERAL EXAM: Alert, 47-year-old obese white male , comfortable in no apparent distress. HEAD: Normocephalic and atraumatic EYES: Normal reaction of pupils, equal size. NOSE: Clear with pink turbinates. THROAT: No erythema or exudates. NECK: No masses, no JVD. CHEST: No chest wall deformity. LUNGS: Equal air entry with no crackles, wheeze, rhonchi or dullness. On room air. No conversational dyspnea or accessory muscle use.. CVS: S1 and S2 normal with no audible murmur, regular rhythm. No extra heart sounds ABDOMEN: No hepatosplenomegaly, active bowel sounds, no guarding or rigidity. SPINE: No scoliosis or deformity SKIN: No rashes CENTRAL NERVOUS SYSTEM: No focal deficits, tone is normal in all 4 extremities. EXTREMITIES: There is no peripheral edema, clubbing, or cyanosis. Peripheral pulses are intact. Results - Laboratory Findings CBC and BMP: 05/07/23 03:41 05/07/23 03:41 PT/INR, D-dimer PT 9.9 sec (9.0-12.0) 05/06/23 00:18 INR 0.9 (<1.2) 05/06/23 00:18 D-Dimer 0.34 mg/L FEU (<0.60) 05/06/23 00:18 Abnormal lab findings: Abnormal Labs 05/06/23 05/06/23 05/06/23 00:18 00:18 03:38 APTT Carbon Dioxide 21 L Glucose 107 H Troponin I 0.257 H* 0.272 H* 05/06/23 05/06/23 05/06/23 07:24 07:24 19:40 APTT 30.6 H 35.9 H Carbon Dioxide Glucose Troponin I 1.140 H* - Diagnostic Findings Chest x-ray: image reviewed CT scan - chest: image reviewed Assessment and Plan Assessment: Non-ST elevation myocardial infarction, patient is currently undergoing preoperative workup for a tentative CABG. Multivessel coronary artery disease, as reported during heart catheterization Hyperlipidemia Mild intermittent bronchial asthma, not active Chronic marijuana smoker Obesity, with a BMI of 35.4 kg/m Plan: Patient's medications, labs, imaging reviewed On room air Patient is currently undergoing preoperative workup for tentative CABG Currently on IV heparin per protocol From a pulmonary standpoint, the patient is at no increased operative risk. We will continue to follow during the patient's perioperative course. I have personally seen and examined the patient, performed the documentation and the assessment and plan as written. Number of minutes spent on the visit:20 This is a joint evaluation that was done along with the nurse practitioner. The patient was seen and evaluated. Evaluation was done in more than 30 minutes. In summary, the patient came in with chest pain [id number] in for an acute non-ST segment elevation myocardial infarction. A cardiac catheterization was done and the patient was found to have multivessel coronary artery disease. Currently is free of any chest pain and his hemodynamics is stable. The patient is currently being evaluated for cardiac bypass surgery. He remains on IV heparin. He remains on aspirin and beta blockers and the patient is currently on Toprol-XL 25 mg by mouth daily. Computed tomography scan of the chest shows no acute abnormalities. Carotid Dopplers were also done and it showed some mild atherosclerotic disease without evidence of any significant stenosis. Awaiting cardiothoracic surgical evaluation. The patient be able to undergo thoracotomy bypass surgery as the patient's overall pulmonary status is stable. Awaiting the results of the echocardiogram. Time with Patient: Greater than 30
[2023-05-07 04:34] LABS: ALT 39 U/L (4-49); AST 135 U/L (17-59); African American GFR (CKD) >90 (>60 ml/min/1.73 sqM); Albumin 4.1 g/dL (3.5-5.0); Alkaline Phosphatase 52 U/L (38-126); Anion Gap 11 mmol/L; Blood Urea Nitrogen 14 mg/dL (9-20); Calcium 9.4 mg/dL (8.4-10.2); Carbon Dioxide 22 mmol/L (22-30); Chloride 104 mmol/L (98-107); Glucose 143 mg/dL (74-99); Non-African American GFR(CKD) >90 (>60 ml/min/1.73 sqM); Partial Thromboplastin Time 34.5 sec (22.0-30.0); Potassium 4.7 mmol/L (3.5-5.1); Prothrombin Time 10.4 sec (9.0-12.0); Sodium 137 mmol/L (137-145); Total Bilirubin 0.5 mg/dL (0.2-1.3); Total Protein 7.3 g/dL (6.3-8.2)
[2023-05-07 04:52] LABS: Basophils % (A) 0 %; Eosinophils % (A) 0 %; HCT 40.4 % (39.0-53.0); HGB 13.2 gm/dL (13.0-17.5); Lymphocytes # (A) 0.7 k/uL (1.0-4.8); Lymphocytes % (A) 6 %; MCH 31.2 pg (25.0-35.0); MCHC 32.7 g/dL (31.0-37.0); MCV 95.5 fL (80.0-100.0); Mean Platelet Volume 9.1; Monocytes # (A) 0.3 k/uL (0-1.0); Monocytes % (A) 2 %; Neutrophils # (A) 10.4 k/uL (1.3-7.7); Neutrophils % (A) 91 %; Platelet Count 303 k/uL (150-450); RBC 4.23 m/uL (4.30-5.90); RDW 13.1 % (11.5-15.5); WBC 11.4 k/uL (3.8-10.6)
[2023-05-07] MEDS: HEPARIN SODIUM 1,000 UN/ML (10ML VL) IV PRN (04:56)
[2023-05-07] MEDS: ACETAMINOPHEN TAB 325 MG TAB PO PRN ×3 (04:57→18:44)
[2023-05-07] MEDS ORDERED: HEPARIN SODIUM,PORCINE 10,000 UNIT in SODIUM CHLORIDE 0.9% 1,000 ML IRRIGATION PRN (07:00)
[2023-05-07] MEDS ORDERED: HEPARIN SODIUM,PORCINE (1 ML) 2,500 UNIT in SODIUM CHLORIDE 0.9% 250 ML IRRIGATION PRN (07:00)
--- NOTE | 2023-05-07 08:49 | P.GSCN ---
History of Present Illness Consult date: 05/07/23 Reason for Consult: Coronary artery disease Requesting physician: Kyle Talavera History of present illness: This is a 47-year-old gentleman who follows outpatient with Dr. Conroy for primary care. He has a previous medical history of hypertension, hyperlipidemia, asthma, previous Covid, lifelong nonsmoker although he does smoke marijuana, and significant family history of coronary artery disease as well as premature coronary artery disease in his grandfather who had open heart surgery in his 50s. The patient experienced approximately 20 minutes worth of substernal chest pain after admittedly eating spicy foods, denied any shortness of breath or any other symptomatology. He assumed it was heartburn and took multiple antacids. When this did not relieve his pain he presented to [facility] emergency room for evaluation and treatment. EKG demonstrated sinus bradycardia. Chest x-ray demonstrated no acute process. Troponins were elevated and patient was ruled in for non-STEMI. He was taken to the Senior H[employer] Developer by Dr. Talavera which revealed proximal LAD stenosis 70%, mid LAD stenosis 70-80%, mid to distal LAD stenosis 99% with chronic total occlusion of the mid circumflex. Due to these findings consultation was placed to cardiothoracic surgery for surgical revascularization recommendations. Review of Systems Review of systems was completed and was negative except as noted - Cardiovascular Reports as per HPI, Reports chest pain Past Medical History Past Medical History: Asthma, Coronary Artery Disease (CAD), Chest Pain / Angina, GERD/Reflux, Hearing Disorder / Deafness, Hyperlipidemia, Hypertension, Myocardial Infarction (AL), Skin Disorder Additional Past Medical History / Comment(s): Blood loss and vomiting in the mornings/pt states occasionally will see bright red blood in stool but also states has had hemorrhoids in the past/hemorroids banded, hiatal hernia, sinus problems, pt states he gets SOB fairly easily, concussion many years ago, dry hands/skin cracks, bilateral tinnitis. Last Myocardial Infarction Date:: 2007 History of Any Multi-Drug Resistant Organisms: None Reported Past Surgical History: Cholecystectomy, Heart Catheterization Additional Past Surgical History / Comment(s): WISDOM TEETH REMOVED UNDER ANESTHESIA. SMALL TUMOR REMOVED FROM LT ARM/BENIGN. COLONOSCOPY/some "inflammed areas" Past Anesthesia/Blood Transfusion Reactions: Motion Sickness Additional Past Anesthesia/Blood Transfusion Reaction / Comm: Pt has never had a blood transfusion. Past Psychological History: No Psychological Hx Reported Smoking Status: Never smoker Past Alcohol Use History: Occasional Past Drug Use History: Marijuana - Past Family History Mother Additional Family Medical History / Comment(s): kidney stones, cholecystectomy Father Family Medical History: Coronary Artery Disease (CAD) Additional Family Medical History / Comment(s): Patient's paternal grandfather had coronary artery disease with CABG in his 50s Medications and Allergies Home Medications Medication Instructions Recorded Confirmed Type Superbeets 1 tab PO DAILY 05/06/23 05/06/23 History Allergies Allergy/AdvReac Type Severity Reaction Status Date / Time Iodinated Contrast Media AdvReac HANDS/FEET Verified 10/23/22 07:12 [Iodinated Contrast- Oral SWELL THEN and IV Dye] SKIN PEELS OFF Surgical - Exam Vital Signs Temp Pulse Resp BP Pulse Ox 98.2 F 48 L 18 108/74 98 05/05/23 23:52 05/05/23 23:52 05/05/23 23:52 05/05/23 23:52 05/05/23 23:52 CONSTITUTIONAL: Awake and alert, appears comfortable, cooperative, well- developed, well-nourished, no pain, no acute distress EYES: Pupils equal, round, reactive to light, normal ocular movement ENT: Moist mucous membranes without oral lesions present NECK: No masses, no bruits, trachea midline RESPIRATORY: Lungs sounds clear to auscultation bilaterally. Respirations even, nonlabored. Currently on room air with oxygen saturation 96%. Strong cough. No chest wall deformities. No clubbing or cyanosis present CARDIOVASCULAR: S1, S2 present. Regular rate and rhythm, sinus bradycardia on telemetry. Palpable peripheral pulses bilaterally. No edema present. No calf pain or tenderness noted. No significant lower extremity varicosities noted. Left radial José Miguel's test less than 8 seconds. GASTROINTESTINAL: Abdomen soft, nontender, nondistended without masses or organomegaly noted. There is no rebound or guarding present. Active bowel sounds present 4 quadrants. GENITOURINARY: Deferred INTEGUMENTARY: Skin is warm and dry with evidence of good perfusion. NEUROLOGIC: Cranial nerves II through XII intact, normal coordination, no obvious motor or sensory deficits, speech is normal MUSKULOSKELETAL: Able to move all extremities, strength equal bilaterally, normal posture PSYCHIATRIC: Alert and oriented to person place and time, appropriate affect, intact judgment and insight Results - Labs 05/07/23 03:41 05/07/23 03:41 Abnormal Lab Results - Last 24 Hours (Table) 05/06/23 05/06/23 05/07/23 Range/Units 07:24 19:40 03:41 WBC 11.4 H (3.8-10.6) k/uL RBC 4.23 L (4.30-5.90) m/uL Neutrophils # 10.4 H (1.3-7.7) k/uL Lymphocytes # 0.7 L (1.0-4.8) k/uL APTT 35.9 H (22.0-30.0) sec Glucose (74-99) mg/dL AST (17-59) U/L Troponin I 1.140 H* (0.000-0.034) ng/mL TSH (0.465-4.680) mIU/L 05/07/23 05/07/23 Range/Units 03:41 03:41 WBC (3.8-10.6) k/uL RBC (4.30-5.90) m/uL Neutrophils # (1.3-7.7) k/uL Lymphocytes # (1.0-4.8) k/uL APTT 34.5 H (22.0-30.0) sec Glucose 143 H (74-99) mg/dL AST 135 H (17-59) U/L Troponin I (0.000-0.034) ng/mL TSH 0.217 L (0.465-4.680) mIU/L Diabetes panel 05/06/23 05/07/23 Range/Units 00:18 03:41 Sodium 137 (137-145) mmol/L Potassium 4.7 (3.5-5.1) mmol/L Chloride 104 (98-107) mmol/L Carbon Dioxide 22 (22-30) mmol/L BUN 14 (9-20) mg/dL Creatinine 0.88 (0.66-1.25) mg/dL Glucose 143 H (74-99) mg/dL Hemoglobin A1c 5.6 (<=6.0) % Calcium 9.4 (8.4-10.2) mg/dL AST 135 H (17-59) U/L ALT 39 (4-49) U/L Alkaline Phosphatase 52 (38-126) U/L Total Protein 7.3 (6.3-8.2) g/dL Albumin 4.1 (3.5-5.0) g/dL Thyroid panel 05/07/23 Range/Units 03:41 TSH 0.217 L (0.465-4.680) mIU/L Calcium panel 05/07/23 Range/Units 03:41 Calcium 9.4 (8.4-10.2) mg/dL Albumin 4.1 (3.5-5.0) g/dL Pituitary panel 05/07/23 Range/Units 03:41 Sodium 137 (137-145) mmol/L Potassium 4.7 (3.5-5.1) mmol/L Chloride 104 (98-107) mmol/L Carbon Dioxide 22 (22-30) mmol/L BUN 14 (9-20) mg/dL Creatinine 0.88 (0.66-1.25) mg/dL Glucose 143 H (74-99) mg/dL Calcium 9.4 (8.4-10.2) mg/dL TSH 0.217 L (0.465-4.680) mIU/L Adrenal panel 05/07/23 Range/Units 03:41 Sodium 137 (137-145) mmol/L Potassium 4.7 (3.5-5.1) mmol/L Chloride 104 (98-107) mmol/L Carbon Dioxide 22 (22-30) mmol/L BUN 14 (9-20) mg/dL Creatinine 0.88 (0.66-1.25) mg/dL Glucose 143 H (74-99) mg/dL Calcium 9.4 (8.4-10.2) mg/dL Total Bilirubin 0.5 (0.2-1.3) mg/dL AST 135 H (17-59) U/L ALT 39 (4-49) U/L Alkaline Phosphatase 52 (38-126) U/L Total Protein 7.3 (6.3-8.2) g/dL Albumin 4.1 (3.5-5.0) g/dL - Imaging Chest x-ray: report reviewed, image reviewed CT scan - chest: report reviewed, image reviewed EKG: image reviewed Additional studies: Heart catheterization films reviewed with Dr. Villavicencio Assessment and Plan Assessment: Coronary artery disease, non-STEMI this admission Chest pain, secondary to above Hypertension Hyperlipidemia Asthma Lifelong nonsmoker (cigarettes) Daily marijuana use Family history of CAD, premature CAD Plan: The patient was seen and examined the bedside with family present. Chart/diagnostics were reviewed. The case was discussed in detail with Dr. Villavicencio and Dr. Talavera. The usual perioperative course of open heart surgery was discussed with the patient and his family, risks and benefits were reviewed, all questions were answered. Preoperative testing initiated. Once completed will calculate STS risk score and discussed with the patient. Recommend continuing to maximize medical therapy with aspirin, statin, beta aminata. Timing of surgery to be determined. More recommendations to follow. Thank you Dr. Talavera for this consult. I have personally seen and examined the patient, performed the documentation and the assessment and plan as written. Number of minutes spent on the visit: 30. LUIS Parker Attending addendum: Pt seen and evaluated with QA SOFTWARE TESTER above. Agree with her assessment and plan. This is a 47 year-old M with a hx of questionable AL in the past related to testosterone supplementation. He now presented with acute onset chest pain and was diagnosed with NSTEMI. Coronary angio shows non significant disease in the RCA, with diffuse disease in the LAD, [employer] of the Cx and ostial disease in the ramus. We will proceed with CABG this admission. I spent 35 minutes reviewing the data and discussing the plan of care with the patient and the care team. Time with Patient: Greater than 30
[2023-05-07] MEDS: ASPIRIN 325 MG TAB PO SCH (09:13)
[2023-05-07] MEDS: METOPROLOL SUCCINATE (ER) 25 MG TAB.ER.24H PO SCH (09:13)
[2023-05-07] MEDS: ATORVASTATIN 80 MG TAB PO SCH (09:13)
[2023-05-07 11:08] LABS: Hepatitis A Antibody IgM Nonreactive; Hepatitis B Core IgM Nonreactive; Hepatitis B Surface Antigen Nonreactive; Hepatitis C IgG Antibody Nonreactive
[2023-05-07 11:35] LABS: Chol/HDL Ratio 4.75 Ratio; LDL Cholesterol,Calculated 170.2 mg/dL (0.0-131.0)
--- NOTE | 2023-05-07 12:14 | P.PN ---
Subjective HISTORY OF PRESENT ILLNESS: Patient is status post cardiac catheterization with Dr. Asencio revealing severe and diffuse disease involving the LAD with disease in the proximal and mid to distal portion, chronic total occlusion of the left circumflex, intermediate disease involving the RCA appeared to be [id number], and normal left- sided filling pressures. Patient examined this morning at the bedside. Patients family present. Patient denies any chest pain or pressure. She denies any shortness of breath. Vital signs are stable. Patient does report a family history of premature coronary artery disease. The patient himself denies a history of hypertension, hyperlipidemia, or diabetes. PHYSICAL EXAM: VITAL SIGNS: Reviewed. GENERAL: Well-developed in no acute distress. NECK: Supple. No JVD or thyromegaly LUNGS: Respirations even and unlabored. Lungs essentially clear to auscultation bilaterally. HEART: Regular rate and rhythm. S1 and S2 heard. EXTREMITIES: Normal range of motion. No clubbing or cyanosis. Peripheral pulses intact. No lower extremity edema ASSESSMENT: Non-STEMI Multivessel coronary artery disease Family history of premature coronary artery disease PLAN: 2-D echo has been ordered. Await results Continue current cardiac medications Continue IV heparin CT surgery has been consulted for possible CABG. Await further recommendations Further recommendations pending patient course Nurse practitioner note has been reviewed by physician. Signing provider agrees with the documented findings, assessment, and plan of care. Objective - Vital Signs Vital signs: Vital Signs Temp 98.1 F 05/07/23 08:00 Pulse 57 L 05/07/23 08:00 Resp 16 05/07/23 08:00 BP 129/82 05/07/23 08:00 Pulse Ox 97 05/07/23 08:00 FiO2 Intake & Output 05/06/23 05/07/23 05/07/23 18:59 06:59 18:59 Intake Total 443.136 653.048 320 Balance 443.136 653.048 320 Intake: IV 180 Intake, IV Titration 145.136 203.048 Amount Heparin Sod,Pork in 0.45% 145.136 203.048 NaCl 25,000 unit In 0.45 % NaCl 1 250ml.bag @ 9.19 UNITS/KG/HR 10.004 mls/ hr IV .Q24H [facility] Rx#: [id number] Oral 118 450 320 Other: Voiding Method Toilet Toilet Toilet # Voids 1 - Labs CBC & Chem 7: 05/07/23 03:41 05/07/23 03:41 Labs: Abnormal Lab Results - Last 24 Hours (Table) 05/06/23 05/07/23 05/07/23 Range/Units 19:40 03:41 03:41 WBC 11.4 H (3.8-10.6) k/uL RBC 4.23 L (4.30-5.90) m/uL Neutrophils # 10.4 H (1.3-7.7) k/uL Lymphocytes # 0.7 L (1.0-4.8) k/uL APTT 35.9 H (22.0-30.0) sec Glucose 143 H (74-99) mg/dL AST 135 H (17-59) U/L Cholesterol 242.00 H (0.00-200.00) mg/dL LDL Cholesterol, Calc 170.2 H (0.0-131.0) mg/dL TSH 0.217 L (0.465-4.680) mIU/L 05/07/23 05/07/23 Range/Units 03:41 10:42 WBC (3.8-10.6) k/uL RBC (4.30-5.90) m/uL Neutrophils # (1.3-7.7) k/uL Lymphocytes # (1.0-4.8) k/uL APTT 34.5 H 61.9 H (22.0-30.0) sec Glucose (74-99) mg/dL AST (17-59) U/L Cholesterol (0.00-200.00) mg/dL LDL Cholesterol, Calc (0.0-131.0) mg/dL TSH (0.465-4.680) mIU/L
--- NOTE | 2023-05-07 13:57 | P.PN ---
Subjective Progress Note Date: 05/07/23 patient 47-year-old gentleman with past medical history significant for hypertension, hyperlipidemia and the ER because of chest pain that started last night. Patient stated he was all right last night when he started noticing central chest pain which was severe in intensity, nonradiating, associated with shortness of breath. Patient was complaining of nausea that time. No complain of diaphoresis. No aggravating or relieving factors associated with chest pain. Denied any palpitation. Denied any fever or chills. Because of chest pain, patient came to ER. Initial lab work done in the ER showed WBC 6.3, hemoglobin 13.7, platelet count 320, d-dimer 0.34 sodium 1:30, potassium 4, BUN 13, creatinine 1.14, troponin 0.257 EKG done in the ER heart rate 49, slight ST elevation noticeable in leads 1 and aVL, no reciprocal changes or T-wave inversion seen. Chest x-ray done in the ER showed no active disease Patient was started on heparin, ER physician discussed the case with on-call cardiology and EKGs, they recommended starting heparin and admission to medicine service 05/07. Patient seen and examined. Cardiac catheterization done on 05/06 showed Severe and diffuse disease involving the left anterior descending artery with disease in the proximal and mid and mid to distal portion, Chronic total occlusion of the left circumflex, Intermediate disease involving the right coronary artery. REVIEW OF SYSTEMS: CONSTITUTIONAL: No fever, no malaise,. CARDIOVASCULAR: No chest pain, no palpitations, no syncope. PULMONARY: No shortness of breath, no cough, GASTROINTESTINAL: No diarrhea, no nausea, no vomiting, no abdominal pain. NEUROLOGICAL: No headaches, no weakness, PHYSICAL EXAMINATION: GENERAL: The patient is alert and oriented x3, not in any acute distress. Well developed, well nourished. HEENT: Pupils are round and equally reacting to light. EOMI. No scleral icterus. No conjunctival pallor. Normocephalic, atraumatic. No pharyngeal erythema. No thyromegaly. CARDIOVASCULAR: S1 and S2 present. No murmurs, rubs, or gallops. PULMONARY: Chest is clear to auscultation, no wheezing or crackles. ABDOMEN: Soft, nontender, nondistended, normoactive bowel sounds. No palpable organomegaly. MUSCULOSKELETAL: No joint swelling or deformity. EXTREMITIES: No cyanosis, clubbing, or pedal edema. NEUROLOGICAL: Gross neurological examination did not reveal any focal deficits. SKIN: No rashes. Assessment and plan Non-ST elevation myocardial infarction Multivessel coronary artery disease Hyperlipidemia Mild intermittent bronchial asthma, not active Chronic marijuana smoker Obesity, with a BMI of 35.4 kg/m Monitor vital signs Monitor CBC Monitor CMP Continue telemetry monitoring Cardiac catheterization done on 05/06 showed Severe and diffuse disease involving the left anterior descending artery with disease in the proximal and mid and mid to distal portion, Chronic total occlusion of the left circumflex, Intermediate disease involving the right coronary artery. Continue aspirin, Lipitor, Toprol Cardiac surgery consulted, preoperative testing for CABG initiated Cardiology following Pulmonary following Labs and medication were reviewed.. Continue same treatment. Continue with symptomatic treatment. Resume home medication. Monitor labs and vitals. DVT and GI prophylaxis. Further recommendations as per clinical course of the patie nt Dictation was produced using [employer] dictation software. please excuse any grammatical, word or spelling errors. Objective - Vital Signs Vital signs: Vital Signs Temp 98.1 F 05/07/23 08:00 Pulse 57 L 05/07/23 08:00 Resp 16 05/07/23 08:00 BP 129/82 05/07/23 08:00 Pulse Ox 97 05/07/23 08:00 FiO2 Intake & Output 05/06/23 05/07/23 05/07/23 18:59 06:59 18:59 Intake Total 443.136 653.048 320 Balance 443.136 653.048 320 Intake: IV 180 Intake, IV Titration 145.136 203.048 Amount Heparin Sod,Pork in 0.45% 145.136 203.048 NaCl 25,000 unit In 0.45 % NaCl 1 250ml.bag @ 9.19 UNITS/KG/HR 10.004 mls/ hr IV .Q24H [facility] Rx#: [id number] Oral 118 450 320 Other: Voiding Method Toilet Toilet # Voids 1 - Labs CBC & Chem 7: 05/07/23 03:41 05/07/23 03:41 Labs: Abnormal Lab Results - Last 24 Hours (Table) 05/06/23 05/07/23 05/07/23 Range/Units 19:40 03:41 03:41 WBC 11.4 H (3.8-10.6) k/uL RBC 4.23 L (4.30-5.90) m/uL Neutrophils # 10.4 H (1.3-7.7) k/uL Lymphocytes # 0.7 L (1.0-4.8) k/uL APTT 35.9 H (22.0-30.0) sec Glucose 143 H (74-99) mg/dL AST 135 H (17-59) U/L TSH 0.217 L (0.465-4.680) mIU/L 05/07/23 Range/Units 03:41 WBC (3.8-10.6) k/uL RBC (4.30-5.90) m/uL Neutrophils # (1.3-7.7) k/uL Lymphocytes # (1.0-4.8) k/uL APTT 34.5 H (22.0-30.0) sec Glucose (74-99) mg/dL AST (17-59) U/L TSH (0.465-4.680) mIU/L
--- NOTE | 2023-05-07 17:43 | CA ---
Transthoracic Echo Report Name: Bernardino Florence Age: 47 Gender: M : 1975 Exam Date: 05/07/2023 15:26 Exam Location: [place] Echo Ht (in): 69 Wt (lb): 240 Ordering Physician: Salbador Ennis MD Attending/Referring Phys: Retirement Administrator Janneth Joseph RDCS Procedure CPT: Indications: Chest Pain Cardiac Hx: Technical Quality: Good Contrast 1: Total Dose (mL): Contrast 2: Total Dose (mL): MEASUREMENTS (Male / Female) Normal Values 2D ECHO LV Diastolic Diameter PLAX 5.4 cm 4.2 - 5.9 / 3.9 - 5.3 cm LV Systolic Diameter PLAX 3.8 cm IVS Diastolic Thickness 1.0 cm 0.6 - 1.0 / 0.6 - 0.9 cm LVPW Diastolic Thickness 1.1 cm 0.6 - 1.0 / 0.6 - 0.9 cm LV Relative Wall Thickness 0.4 RV Internal Dim ED PLAX 3.7 cm LA Systolic Diameter LX 4.2 cm 3.0 - 4.0 / 2.7 - 3.8 cm LV Diastolic Volume MOD 4C 159.2 cm??? LV Systolic Volume MOD 4C 78.0 cm??? LV Ejection Fraction MOD 4C 51.0 % LV Cardiac Index MOD 4C 1906.5 cm???/min???m??? LV Diastolic Length 4C 9.4 cm LV Systolic Length 4C 7.5 cm LV Diastolic Volume MOD 2C 157.5 cm??? LV Systolic Volume MOD 2C 78.0 cm??? LV Ejection Fraction MOD 2C 50.5 % LV Cardiac Index MOD 2C 1865.5 cm???/min???m??? LV Diastolic Length 2C 9.0 cm LV Systolic Length 2C 7.3 cm LA Volume 75.2 cm??? 18 - 58 / 22 - 52 cm??? LA Volume Index 32.1 cm???/m??? 16 - 28 cm???/m??? M-MODE Aortic Root Diameter MM 3.4 cm MV E Point Septal Separation 0.7 cm AV Cusp Separation MM 2.4 cm DOPPLER AV Peak Velocity 156.0 cm/s AV Peak Gradient 9.7 mmHg MV Area PHT 3.8 cm??? Mitral E Point Velocity 101.3 cm/s Mitral A Point Velocity 56.8 cm/s Mitral E to A Ratio 1.8 MV Deceleration Time 197.6 ms MV E' Velocity 11.5 cm/s Mitral E to MV E' Ratio 8.8 TR Peak Velocity 240.8 cm/s TR Peak Gradient 23.2 mmHg Right Ventricular Systolic Press 27.4 mmHg FINDINGS Left Ventricle Left ventricular ejection fraction is estimated at 45-50 %. Left ventricular cavity size normal. Right Ventricle Mild right ventricular dilatation. Right ventricular systolic pressure within normal limits. Right Atrium Normal right atrial size. Left Atrium Mildly increased left atrial diameter. Moderately increased left atrial volume. Mildly increased left atrial area. Mitral Valve Structurally normal mitral valve. Trace mitral regurgitation. Aortic Valve Trileaflet aortic valve. No aortic valve stenosis or regurgitation. Tricuspid Valve Structurally normal tricuspid valve. Mild tricuspid regurgitation. Pulmonic Valve Structurally normal pulmonic valve. No pulmonic regurgitation. Pericardium No pericardial effusion. Aorta Normal size aortic root and proximal ascending aorta. CONCLUSIONS Mild LV systolic dysfunction Moderate left atrial enlargement Previewed by: Dr. Luis Montiel MD (Electronically Signed) Final Date: 07 May 2023 17:43
[2023-05-07] MEDS: HEPARIN SOD,PORK IN 0.45% NACL 25,000 UNIT in 0.45% NACL 1 250ML.BAG IV SCH (18:44)
[2023-05-08] MEDS: ACETAMINOPHEN TAB 325 MG TAB PO PRN ×3 (00:01→18:30)
[2023-05-08] MEDS: NITROGLYCERIN OINT 1 INCH/GM PACKET TOPICAL SCH ×5 (00:02→18:30)
[2023-05-08] MEDS: HEPARIN SOD,PORK IN 0.45% NACL 25,000 UNIT in 0.45% NACL 1 250ML.BAG IV SCH ×2 (07:26→19:34)
[2023-05-08] MEDS: ASPIRIN 325 MG TAB PO SCH (08:54)
[2023-05-08] MEDS: ATORVASTATIN 80 MG TAB PO SCH (10:58)
[2023-05-08] MEDS: METOPROLOL SUCCINATE (ER) 25 MG TAB.ER.24H PO SCH (10:58)
--- NOTE | 2023-05-08 11:05 | P.PN ---
Subjective Progress Note Date: 05/08/23 Principal diagnosis: Coronary artery disease, non-STEMI this admission. History of hypertension, hyperlipidemia, asthma, lifelong nonsmoker of cigarettes, daily marijuana use, family history of CAD, premature CAD The patient was seen and examined this morning laying in bed on the cardiac stepdown unit in no acute distress. He denies any pain or shortness of breath this morning. Currently sinus bradycardia with heart rate in the 40s, hemodynamically stable. Currently on room air with oxygen saturation 98%, able to achieve 3000 mL on his incentive spirometry. He was seen by Dr. Villavicencio yesterday, anticipates open heart surgery . All questions answered. Objective - Vital Signs Vital signs: Vital Signs Temp 98.2 F 05/08/23 08:00 Pulse 46 L 05/08/23 08:00 Resp 18 05/08/23 08:00 BP 130/84 05/08/23 08:00 Pulse Ox 98 05/08/23 08:00 FiO2 Intake & Output 05/07/23 05/08/23 05/08/23 18:59 06:59 18:59 Intake Total 726.952 776.660 Balance 726.952 776.660 Weight 109.7 kg Intake: Intake, IV Titration 46.952 236.660 Amount Heparin Sod,Pork in 0.45% 46.952 236.660 NaCl 25,000 unit In 0.45 % NaCl 1 250ml.bag @ 9.19 UNITS/KG/HR 10.004 mls/ hr IV .Q24H [facility] Rx#: [id number] Oral 680 540 Other: Voiding Method Toilet Toilet Toilet # Voids 2 1 # Bowel Movements 0 - Exam CONSTITUTIONAL: Appears comfortable, cooperative, no acute distress RESPIRATORY: Lungs sounds diminished bilaterally. Respirations even, nonlabored. Currently on room air with oxygen saturation 98%. Able to achieve 3000 mL on incentive spirometry. Strong cough. CARDIOVASCULAR: S1, S2 present. Slow but regular rate and rhythm, sinus bradycardia on telemetry. Palpable peripheral pulses bilaterally. No edema present GASTROINTESTINAL: Abdomen soft, nontender, nondistended. Active bowel sounds present 4 quadrants. Tolerating diet GENITOURINARY: Continues to void INTEGUMENTARY: Skin is warm and dry NEUROLOGIC: Cranial nerves II through XII intact MUSKULOSKELETAL: Able to move all extremities, strength equal bilaterally, gait normal PSYCHIATRIC: Alert and oriented to person place and time, appropriate affect, intact judgment and insight - Allied health notes Allied health notes reviewed: nursing - Labs CBC & Chem 7: 05/07/23 03:41 05/07/23 03:41 Labs: Abnormal Lab Results - Last 24 Hours (Table) 05/07/23 05/07/23 05/08/23 Range/Units 03:41 10:42 06:38 APTT 61.9 H 49.0 H (22.0-30.0) sec Cholesterol 242.00 H (0.00-200.00) mg/dL LDL Cholesterol, Calc 170.2 H (0.0-131.0) mg/dL Assessment and Plan Assessment: Coronary artery disease, non-STEMI this admission Chest pain, secondary to above Hypertension Hyperlipidemia, cholesterol 242, LDL 170 Asthma Lifelong nonsmoker (cigarettes), preoperative FEV1 72% of predicted Daily marijuana use Family history of CAD, premature CAD Plan: Continue to maximize medical therapy with aspirin, statin, beta aminata, IV heparin Encourage incentive spirometry use Continue to reinforce preoperative teaching Our plan is for off-pump coronary artery bypass surgery with left internal mammary artery, left radial artery harvest, possible endoscopic vein harvest on , 05/10/[address] Villavicencio 5 m walk test was completed, #1 4.6 sec, #2 4.75 sec, #3 4.35 sec STS risk score was calculated and discussed with the patient, he is considered low risk Medical management of other comorbidities per internal medicine, cardiology More recommendations to follow
--- NOTE | 2023-05-08 12:48 | P.PN ---
Subjective Progress Note Date: 05/08/23 I am seeing this patient in new consultation today 05/07/2023 on the cardiac stepdown unit for a preoperative pulmonary evaluation for a tentative CABG. Patient is a 47-year-old white male past medical history significant for mild intermittent asthma, hyperlipidemia, and hypertension. Denies any premature history of heart disease. Patient presented to the emergency room after developing substernal chest pressure which radiated up his neck that started at 11 PM on May 05, he presented to the hospital early the next morning. Patient was also experiencing some nausea and shortness of breath at that time. He did have a heart catheterization yesterday afternoon, and was found to have multivessel coronary artery disease. No PCI was performed. There was severe diffuse disease involving the left anterior descending artery, chronic total occlusion of the left circumflex, and moderate disease of the RCA. Cardiothoracic surgery was consulted for possible open-heart surgery. Patient is currently sitting up in bed, on room air, in no acute distress. He denies any current chest pain. He is on heparin infusion per protocol. Patient's pulmonary status seems to be stable. He does admit history of mild intermittent asthma In which he controls with when necessary albuterol. He states that he almost never needs to use his inhaler. Denies ever being a tobacco smoker, however, he does smoke marijuana daily. Bedside spirometry shows an FEV1 of 2.74 L or 72% of predicted. ECG on arrival showed sinus bradycardia with no significant ST elevation. There was less than 1 mm of elevation in lead 1. Troponins were elevated and are trending up at 0.257, 0.27, and 1.14 respectively. CBC on arrival was unremarkable. D-dimer not elevated. CMP unremarkable. Hemodynamically the patient seems stable. On today's evaluation of 05/08/2023, the patient has no specific complaints. History of any chest pain. He is having some sinus bradycardia, asymptomatic and is hemodynamically stable. No chest pain. No other complaints otherwise for now. The plan is to proceed with surgery on 05/10/2023. Objective - Vital Signs Vital signs: Vital Signs Temp 98.2 F 05/08/23 08:00 Pulse 46 L 05/08/23 08:00 Resp 18 05/08/23 08:00 BP 130/84 05/08/23 08:00 Pulse Ox 98 05/08/23 08:00 FiO2 Intake & Output 05/07/23 05/08/23 05/08/23 18:59 06:59 18:59 Intake Total 726.952 776.660 Balance 726.952 776.660 Weight 109.7 kg Intake: Intake, IV Titration 46.952 236.660 Amount Heparin Sod,Pork in 0.45% 46.952 236.660 NaCl 25,000 unit In 0.45 % NaCl 1 250ml.bag @ 9.19 UNITS/KG/HR 10.004 mls/ hr IV .Q24H [facility] Rx#: [id number] Oral 680 540 Other: Voiding Method Toilet Toilet Toilet # Voids 2 1 # Bowel Movements 0 - Exam GENERAL EXAM: Alert, 47-year-old obese white male , comfortable in no apparent distress. HEAD: Normocephalic and atraumatic EYES: Normal reaction of pupils, equal size. NOSE: Clear with pink turbinates. THROAT: No erythema or exudates. NECK: No masses, no JVD. CHEST: No chest wall deformity. LUNGS: Equal air entry with no crackles, wheeze, rhonchi or dullness. On room air. No conversational dyspnea or accessory muscle use.. CVS: S1 and S2 normal with no audible murmur, regular rhythm. No extra heart sounds ABDOMEN: No hepatosplenomegaly, active bowel sounds, no guarding or rigidity. SPINE: No scoliosis or deformity SKIN: No rashes CENTRAL NERVOUS SYSTEM: No focal deficits, tone is normal in all 4 extremities. EXTREMITIES: There is no peripheral edema, clubbing, or cyanosis. Peripheral pulses are intact. - Labs CBC & Chem 7: 05/07/23 03:41 05/07/23 03:41 Labs: Abnormal Lab Results - Last 24 Hours (Table) 05/07/23 05/07/23 05/08/23 Range/Units 03:41 10:42 06:38 APTT 61.9 H 49.0 H (22.0-30.0) sec Cholesterol 242.00 H (0.00-200.00) mg/dL LDL Cholesterol, Calc 170.2 H (0.0-131.0) mg/dL Assessment and Plan Assessment: Coronary artery disease and the patient is status post Non-ST elevation myocardial infarction, patient is currently undergoing preoperative workup for a tentative CABG. the tentative surgical date is 05/10/2023, and an echocardiogram was done and the patient has an ejection fraction of 45-50%, normal RV, no significant valvular abnormalities. Multivessel coronary artery disease, as reported during heart catheterization Hyperlipidemia Mild intermittent bronchial asthma, not active Chronic marijuana smoker Obesity, with a BMI of 35.4 kg/m Plan: Continue aspirin and beta blockers Patient's family chest pain and the patient is currently off IV heparin Computed tomography scan of the chest shows no acute abnormalities. Carotid Dopplers were also done and it showed some mild atherosclerotic disease without evidence of any significant stenosis. Awaiting cardiothoracic surgical evaluation, tentative surgical date is on 05/10/2023 The patient be able to undergo thoracotomy bypass surgery as the patient's overall pulmonary status is stable. Echo was noted, no significant abnormalities involving the valves. The patient is an ejection fraction of 45-50%.
--- NOTE | 2023-05-08 13:29 | P.PN ---
Subjective Progress Note Date: 05/08/23 patient 47-year-old gentleman with past medical history significant for hypertension, hyperlipidemia and the ER because of chest pain that started last night. Patient stated he was all right last night when he started noticing central chest pain which was severe in intensity, nonradiating, associated with shortness of breath. Patient was complaining of nausea that time. No complain of diaphoresis. No aggravating or relieving factors associated with chest pain. Denied any palpitation. Denied any fever or chills. Because of chest pain, patient came to ER. Initial lab work done in the ER showed WBC 6.3, hemoglobin 13.7, platelet count 320, d-dimer 0.34 sodium 1:30, potassium 4, BUN 13, creatinine 1.14, troponin 0.257 EKG done in the ER heart rate 49, slight ST elevation noticeable in leads 1 and aVL, no reciprocal changes or T-wave inversion seen. Chest x-ray done in the ER showed no active disease Patient was started on heparin, ER physician discussed the case with on-call cardiology and EKGs, they recommended starting heparin and admission to medicine service 05/07. Patient seen and examined. Cardiac catheterization done on 05/06 showed Severe and diffuse disease involving the left anterior descending artery with disease in the proximal and mid and mid to distal portion, Chronic total occlusion of the left circumflex, Intermediate disease involving the right coronary artery. 05/08. Patient seen and examined. Denies any episodes of chest pain. Denies any shortness of breath on exertion. Vital signs stable REVIEW OF SYSTEMS: CONSTITUTIONAL: No fever, no malaise,. CARDIOVASCULAR: No chest pain, no palpitations, no syncope. PULMONARY: No shortness of breath, no cough, GASTROINTESTINAL: No diarrhea, no nausea, no vomiting, no abdominal pain. NEUROLOGICAL: No headaches, no weakness, PHYSICAL EXAMINATION: GENERAL: The patient is alert and oriented x3, not in any acute distress. Well developed, well nourished. HEENT: Pupils are round and equally reacting to light. EOMI. No scleral icterus. No conjunctival pallor. Normocephalic, atraumatic. No pharyngeal erythema. No thyromegaly. CARDIOVASCULAR: S1 and S2 present. No murmurs, rubs, or gallops. PULMONARY: Chest is clear to auscultation, no wheezing or crackles. ABDOMEN: Soft, nontender, nondistended, normoactive bowel sounds. No palpable organomegaly. MUSCULOSKELETAL: No joint swelling or deformity. EXTREMITIES: No cyanosis, clubbing, or pedal edema. NEUROLOGICAL: Gross neurological examination did not reveal any focal deficits. SKIN: No rashes. Assessment and plan Non-ST elevation myocardial infarction Multivessel coronary artery disease Hyperlipidemia Mild intermittent bronchial asthma, not active Chronic marijuana smoker Obesity, with a BMI of 35.4 kg/m Monitor vital signs Monitor CBC Monitor CMP Continue telemetry monitoring Cardiac catheterization done on 05/06 showed Severe and diffuse disease involving the left anterior descending artery with disease in the proximal and mid and mid to distal portion, Chronic total occlusion of the left circumflex, Intermediate disease involving the right coronary artery. Continue aspirin, Lipitor, Toprol Cardiac surgery consulted, planning for CABG this week Cardiology following Pulmonary following Labs and medication were reviewed.. Continue same treatment. Continue with symptomatic treatment. Resume home medication. Monitor labs and vitals. DVT and GI prophylaxis. Further recommendations as per clinical course of the patient Dictation was produced using [employer] dictation software. please excuse any grammatical, word or spelling errors. Objective - Vital Signs Vital signs: Vital Signs Temp 97.8 F 05/08/23 11:32 Pulse 48 L 05/08/23 11:32 Resp 17 05/08/23 11:32 BP 116/68 05/08/23 11:32 Pulse Ox 97 05/08/23 11:32 FiO2 Intake & Output 05/07/23 05/08/23 05/08/23 18:59 06:59 18:59 Intake Total 545.996 2467.660 Balance 771.954 6769.660 Weight 109.7 kg Intake: Intake, IV Titration 46.952 236.660 Amount Heparin Sod,Pork in 0.45% 46.952 236.660 NaCl 25,000 unit In 0.45 % NaCl 1 250ml.bag @ 9.19 UNITS/KG/HR 10.004 mls/ hr IV .Q24H [facility] Rx#: [id number] Oral 680 1080 Other: Voiding Method Toilet Toilet Toilet # Voids 2 1 1 # Bowel Movements 0 - Labs CBC & Chem 7: 05/07/23 03:41 05/07/23 03:41 Labs: Abnormal Lab Results - Last 24 Hours (Table) 05/08/23 Range/Units 06:38 APTT 49.0 H (22.0-30.0) sec
--- NOTE | 2023-05-08 13:45 | P.PN ---
Subjective HISTORY OF PRESENT ILLNESS: Patient is status post cardiac catheterization with Dr. Asencio revealing severe and diffuse disease involving the LAD with disease in the proximal and mid to distal portion, chronic total occlusion of the left circumflex, intermediate disease involving the RCA appeared to be [id number], and normal left- sided filling pressures. Patient examined this morning at the bedside. Patients family present. Patient denies any chest pain or pressure. She denies any shortness of breath. Vital signs are stable. Patient does report a family history of premature coronary artery disease. The patient himself denies a history of hypertension, hyperlipidemia, or diabetes. 05/08/2023 Patient examined this morning at the bedside. Patient denies chest pain or pressure. He denies shortness of breath. He remains on IV heparin. Echocardiogram completed revealing ejection fraction 45-50%. Telemetry reveals sinus bradycardia with heart rate in the 40-50s. PHYSICAL EXAM: VITAL SIGNS: Reviewed. GENERAL: Well-developed in no acute distress. NECK: Supple. No JVD or thyromegaly LUNGS: Respirations even and unlabored. Lungs essentially clear to auscultation bilaterally. HEART: Regular rate and rhythm. S1 and S2 heard. EXTREMITIES: Normal range of motion. No clubbing or cyanosis. Peripheral pulses intact. No lower extremity edema ASSESSMENT: Non-STEMI Multivessel coronary artery disease Family history of premature coronary artery disease Asymptomatic sinus bradycardia Hyperlipidemia, LDL 170 PLAN: Continue current cardiac medications Continue IV heparin Patient is tentatively scheduled for CABG on Further recommendations pending patient course Nurse practitioner note has been reviewed by physician. Signing provider agrees with the documented findings, assessment, and plan of care. Objective - Vital Signs Vital signs: Vital Signs Temp 97.8 F 05/08/23 11:32 Pulse 48 L 05/08/23 11:32 Resp 17 05/08/23 11:32 BP 116/68 05/08/23 11:32 Pulse Ox 97 05/08/23 11:32 FiO2 Intake & Output 05/07/23 05/08/23 05/08/23 18:59 06:59 18:59 Intake Total 949.962 5736.660 Balance 468.108 6489.660 Weight 109.7 kg Intake: Intake, IV Titration 46.952 236.660 Amount Heparin Sod,Pork in 0.45% 46.952 236.660 NaCl 25,000 unit In 0.45 % NaCl 1 250ml.bag @ 9.19 UNITS/KG/HR 10.004 mls/ hr IV .Q24H [facility] Rx#: [id number] Oral 680 1080 Other: Voiding Method Toilet Toilet Toilet # Voids 2 1 1 # Bowel Movements 0 - Labs CBC & Chem 7: 05/07/23 03:41 05/07/23 03:41 Labs: Abnormal Lab Results - Last 24 Hours (Table) 05/08/23 Range/Units 06:38 APTT 49.0 H (22.0-30.0) sec
[2023-05-09] MEDS: NITROGLYCERIN OINT 1 INCH/GM PACKET TOPICAL SCH ×4 (00:40→17:34)
[2023-05-09] MEDS: ACETAMINOPHEN TAB 325 MG TAB PO PRN ×4 (00:40→17:35)
[2023-05-09 07:34] LABS: HGB 12.5 gm/dL (13.0-17.5); MCH 31.9 pg (25.0-35.0); MCHC 32.9 g/dL (31.0-37.0); MCV 96.9 fL (80.0-100.0); Mean Platelet Volume 8.4; Platelet Count 283 k/uL (150-450); RBC 3.92 m/uL (4.30-5.90); RDW 13.3 % (11.5-15.5); WBC 7.9 k/uL (3.8-10.6)
[2023-05-09 07:47] LABS: Partial Thromboplastin Time 51.9 sec (22.0-30.0); Prothrombin Time 10.5 sec (9.0-12.0)
[2023-05-09 07:51] LABS: ALT 34 U/L (4-49); AST 41 U/L (17-59); African American GFR (CKD) >90 (>60 ml/min/1.73 sqM); Albumin 3.7 g/dL (3.5-5.0); Alkaline Phosphatase 51 U/L (38-126); Anion Gap 6 mmol/L; Blood Urea Nitrogen 16 mg/dL (9-20); Calcium 8.9 mg/dL (8.4-10.2); Carbon Dioxide 28 mmol/L (22-30); Chloride 104 mmol/L (98-107); Glucose 86 mg/dL (74-99); Non-African American GFR(CKD) 86 (>60 ml/min/1.73 sqM); Potassium 4.3 mmol/L (3.5-5.1); Sodium 138 mmol/L (137-145); Total Bilirubin 0.5 mg/dL (0.2-1.3); Total Protein 6.6 g/dL (6.3-8.2)
[2023-05-09] MEDS: ATORVASTATIN 80 MG TAB PO SCH (08:18)
[2023-05-09] MEDS: ASPIRIN 325 MG TAB PO SCH (08:18)
--- NOTE | 2023-05-09 09:18 | P.PN ---
Subjective Progress Note Date: 05/09/23 Principal diagnosis: Coronary artery disease, non-STEMI this admission. History of hypertension, hyperlipidemia, asthma, lifelong nonsmoker of cigarettes, daily marijuana use, family history of CAD, premature CAD The patient was seen and examined this morning laying in bed on the cardiac stepdown unit in no acute distress. He denies any pain or shortness of breath this morning. Currently sinus bradycardia with heart rate in the 50s, hemodynamically stable. Currently on room air with oxygen saturation 98%, able to achieve 3000 mL on his incentive spirometry. Anticipates surgery tomorrow, no new concerns. Objective - Vital Signs Vital signs: Vital Signs Temp 98.1 F 05/09/23 08:15 Pulse 53 L 05/09/23 08:15 Resp 16 05/09/23 08:15 BP 108/72 05/09/23 08:15 Pulse Ox 98 05/09/23 08:15 FiO2 Intake & Output 05/08/23 05/09/23 05/09/23 18:59 06:59 18:59 Intake Total 1536.660 221.292 410.513 Balance 1536.660 221.292 410.513 Weight 111.3 kg Intake: Intake, IV Titration 236.660 221.292 230.513 Amount Heparin Sod,Pork in 0.45% 236.660 221.292 230.513 NaCl 25,000 unit In 0.45 % NaCl 1 250ml.bag @ 9.19 UNITS/KG/HR 10.004 mls/ hr IV .Q24H [facility] Rx#: [id number] Oral 1300 180 Other: Voiding Method Toilet Toilet # Voids 1 1 # Bowel Movements 0 - Exam CONSTITUTIONAL: Appears comfortable, cooperative, no acute distress RESPIRATORY: Lungs sounds diminished bilaterally. Respirations even, nonlabored. Currently on room air with oxygen saturation 98%. Able to achieve 3000 mL on incentive spirometry. Strong cough. CARDIOVASCULAR: S1, S2 present. Slow but regular rate and rhythm, sinus bradycardia on telemetry. Palpable peripheral pulses bilaterally. No edema present GASTROINTESTINAL: Abdomen soft, nontender, nondistended. Active bowel sounds present 4 quadrants. Tolerating diet GENITOURINARY: Continues to void INTEGUMENTARY: Skin is warm and dry NEUROLOGIC: Cranial nerves II through XII intact MUSKULOSKELETAL: Able to move all extremities, strength equal bilaterally, gait normal PSYCHIATRIC: Alert and oriented to person place and time, appropriate affect, intact judgment and insight - Allied health notes Allied health notes reviewed: nursing - Labs CBC & Chem 7: 05/09/23 06:53 05/09/23 06:53 Labs: Abnormal Lab Results - Last 24 Hours (Table) 05/09/23 05/09/23 Range/Units 06:53 06:53 RBC 3.92 L (4.30-5.90) m/uL Hgb 12.5 L (13.0-17.5) gm/dL Hct 38.0 L (39.0-53.0) % APTT 51.9 H (22.0-30.0) sec Microbiology - Last 24 Hours (Table) 05/06/23 15:15 Nasal Screen MRSA/MSSA - Final Nasal Swab Assessment and Plan Assessment: Coronary artery disease, non-STEMI this admission Chest pain, secondary to above Hypertension Hyperlipidemia, cholesterol 242, LDL 170 Asthma Lifelong nonsmoker (cigarettes), preoperative FEV1 72% of predicted Daily marijuana use Family history of CAD, premature CAD Plan: Continue to maximize medical therapy with aspirin, statin, beta aminata, IV heparin Encourage incentive spirometry use Continue to reinforce preoperative teaching Our plan is for off-pump coronary artery bypass surgery with left internal mamm jose artery, left radial artery harvest, possible endoscopic vein harvest on , 05/10/[address] Saud MORRISSEY after midnight Medical management of other comorbidities per internal medicine, cardiology More recommendations to follow
[2023-05-09] MEDS: HEPARIN SOD,PORK IN 0.45% NACL 25,000 UNIT in 0.45% NACL 1 250ML.BAG IV SCH (10:01)
[2023-05-09] MEDS: METOPROLOL SUCCINATE (ER) 25 MG TAB.ER.24H PO SCH (10:02)
--- NOTE | 2023-05-09 11:15 | P.PN ---
Subjective HISTORY OF PRESENT ILLNESS: Patient is status post cardiac catheterization with Dr. Asencio revealing severe and diffuse disease involving the LAD with disease in the proximal and mid to distal portion, chronic total occlusion of the left circumflex, intermediate disease involving the RCA appeared to be [id number], and normal left- sided filling pressures. Patient examined this morning at the bedside. Patients family present. Patient denies any chest pain or pressure. She denies any shortness of breath. Vital signs are stable. Patient does report a family history of premature coronary artery disease. The patient himself denies a history of hypertension, hyperlipidemia, or diabetes. 05/08/2023 Patient examined this morning at the bedside. Patient denies chest pain or pressure. He denies shortness of breath. He remains on IV heparin. Echocardiogram completed revealing ejection fraction 45-50%. Telemetry reveals sinus bradycardia with heart rate in the 40-50s. 05/09/2023 Patient examined this morning at the bedside. Patient denies any chest pain or pressure. He denies shortness of breath. He remains on IV heparin. Telemetry reveals sinus pericardia with a heart rate in the 50s. He denies any dizziness or lightheadedness. Patient is scheduled for CABG tomorrow. PHYSICAL EXAM: VITAL SIGNS: Reviewed. GENERAL: Well-developed in no acute distress. NECK: Supple. No JVD or thyromegaly LUNGS: Respirations even and unlabored. Lungs essentially clear to auscultation bilaterally. HEART: Regular rate and rhythm. S1 and S2 heard. EXTREMITIES: Normal range of motion. No clubbing or cyanosis. Peripheral pulses intact. No lower extremity edema ASSESSMENT: Non-STEMI Multivessel coronary artery disease Family history of premature coronary artery disease Asymptomatic sinus bradycardia Hyperlipidemia, LDL 170 PLAN: Continue telemetry monitoring Continue current cardiac medications Continue IV heparin Patient scheduled for CABG on Further recommendations pending patient course Nurse practitioner note has been reviewed by physician. Signing provider agrees with the documented findings, assessment, and plan of care. Objective - Vital Signs Vital signs: Vital Signs Temp 98.1 F 05/09/23 08:15 Pulse 53 L 05/09/23 08:15 Resp 16 05/09/23 08:15 BP 108/72 05/09/23 08:15 Pulse Ox 98 05/09/23 08:15 FiO2 Intake & Output 05/08/23 05/09/23 05/09/23 18:59 06:59 18:59 Intake Total 1536.660 221.292 430.000 Balance 1536.660 221.292 430.000 Weight 111.3 kg Intake: Intake, IV Titration 236.660 221.292 250.000 Amount Heparin Sod,Pork in 0.45% 236.660 221.292 250.000 NaCl 25,000 unit In 0.45 % NaCl 1 250ml.bag @ 9.19 UNITS/KG/HR 10.004 mls/ hr IV .Q24H [facility] Rx#: [id number] Oral 1300 180 Other: Voiding Method Toilet Toilet Toilet # Voids 1 1 # Bowel Movements 0 - Labs CBC & Chem 7: 05/09/23 06:53 05/09/23 06:53 Labs: Abnormal Lab Results - Last 24 Hours (Table) 05/09/23 05/09/23 05/09/23 Range/Units 06:53 06:53 06:53 RBC 3.92 L (4.30-5.90) m/uL Hgb 12.5 L (13.0-17.5) gm/dL Hct 38.0 L (39.0-53.0) % APTT 51.9 H (22.0-30.0) sec Crossmatch See Detail Microbiology - Last 24 Hours (Table) 05/06/23 15:15 Nasal Screen MRSA/MSSA - Final Nasal Swab
[2023-05-09] MEDS ORDERED: MD COMMUNICATION TO PHARMACY 1 EACH MISC PO ONE (12:41)
--- NOTE | 2023-05-09 16:35 | P.PN ---
Subjective Progress Note Date: 05/09/23 I am seeing this patient in new consultation today 05/07/2023 on the cardiac stepdown unit for a preoperative pulmonary evaluation for a tentative CABG. Patient is a 47-year-old white male past medical history significant for mild intermittent asthma, hyperlipidemia, and hypertension. Denies any premature history of heart disease. Patient presented to the emergency room after developing substernal chest pressure which radiated up his neck that started at 11 PM on May 05, he presented to the hospital early the next morning. Patient was also experiencing some nausea and shortness of breath at that time. He did have a heart catheterization yesterday afternoon, and was found to have multivessel coronary artery disease. No PCI was performed. There was severe diffuse disease involving the left anterior descending artery, chronic total occlusion of the left circumflex, and moderate disease of the RCA. Cardiothoracic surgery was consulted for possible open-heart surgery. Patient is currently sitting up in bed, on room air, in no acute distress. He denies any current chest pain. He is on heparin infusion per protocol. Patient's pulmonary status seems to be stable. He does admit history of mild intermittent asthma In which he controls with when necessary albuterol. He states that he almost never needs to use his inhaler. Denies ever being a tobacco smoker, however, he does smoke marijuana daily. Bedside spirometry shows an FEV1 of 2.74 L or 72% of predicted. ECG on arrival showed sinus bradycardia with no significant ST elevation. There was less than 1 mm of elevation in lead 1. Troponins were elevated and are trending up at 0.257, 0.27, and 1.14 respectively. CBC on arrival was unremarkable. D-dimer not elevated. CMP unremarkable. Hemodynamically the patient seems stable. On today's evaluation of 05/08/2023, the patient has no specific complaints. History of any chest pain. He is having some sinus bradycardia, asymptomatic and is hemodynamically stable. No chest pain. No other complaints otherwise for now. The plan is to proceed with surgery on 05/10/2023. on today's evaluation of 05/09/2023, the patient's by mouth any chest pain. Hemodynamically stable. No complaints. The plan is to proceed with surgery tomorrow. Hemoglobin was at 12.5, BUN is at 60 with a creatinine of 1.02 and a sodium level is at 138. The patient has no other complaints otherwise for now. Ready to undergo his cardiac surgery tomorrow. Objective - Vital Signs Vital signs: Vital Signs Temp 98.1 F 05/09/23 08:15 Pulse 53 L 05/09/23 08:15 Resp 16 05/09/23 08:15 BP 108/72 05/09/23 08:15 Pulse Ox 98 05/09/23 08:15 FiO2 Intake & Output 05/08/23 05/09/23 05/09/23 18:59 06:59 18:59 Intake Total 1536.660 221.292 430.000 Balance 1536.660 221.292 430.000 Weight 111.3 kg Intake: Intake, IV Titration 236.660 221.292 250.000 Amount Heparin Sod,Pork in 0.45% 236.660 221.292 250.000 NaCl 25,000 unit In 0.45 % NaCl 1 250ml.bag @ 9.19 UNITS/KG/HR 10.004 mls/ hr IV .Q24H [facility] Rx#: [id number] Oral 1300 180 Other: Voiding Method Toilet Toilet Toilet # Voids 1 1 # Bowel Movements 0 - Exam GENERAL EXAM: Alert, 47-year-old obese white male , comfortable in no apparent distress. HEAD: Normocephalic and atraumatic EYES: Normal reaction of pupils, equal size. NOSE: Clear with pink turbinates. THROAT: No erythema or exudates. NECK: No masses, no JVD. CHEST: No chest wall deformity. LUNGS: Equal air entry with no crackles, wheeze, rhonchi or dullness. On room air. No conversational dyspnea or accessory muscle use.. CVS: S1 and S2 normal with no audible murmur, regular rhythm. No extra heart sounds ABDOMEN: No hepatosplenomegaly, active bowel sounds, no guarding or rigidity. SPINE: No scoliosis or deformity SKIN: No rashes CENTRAL NERVOUS SYSTEM: No focal deficits, tone is normal in all 4 extremities. EXTREMITIES: There is no peripheral edema, clubbing, or cyanosis. Peripheral pulses are intact. - Labs CBC & Chem 7: 05/09/23 06:53 05/09/23 06:53 Labs: Abnormal Lab Results - Last 24 Hours (Table) 05/09/23 05/09/23 05/09/23 Range/Units 06:53 06:53 06:53 RBC 3.92 L (4.30-5.90) m/uL Hgb 12.5 L (13.0-17.5) gm/dL Hct 38.0 L (39.0-53.0) % APTT 51.9 H (22.0-30.0) sec Crossmatch See Detail Microbiology - Last 24 Hours (Table) 05/06/23 15:15 Nasal Screen MRSA/MSSA - Final Nasal Swab Assessment and Plan Assessment: Coronary artery disease and the patient is status post Non-ST elevation myocardial infarction, patient is currently undergoing preoperative workup for a tentative CABG. the tentative surgical date is 05/10/2023, and an echocardiogram was done and the patient has an ejection fraction of 45-50%, normal RV, no significant valvular abnormalities. Multivessel coronary artery disease, as reported during heart catheterization Hyperlipidemia Mild intermittent bronchial asthma, not active Chronic marijuana smoker Obesity, with a BMI of 35.4 kg/m Plan: We'll proceed with cardiac surgery tomorrow, all questions were answered. The patient is going to undergo an off pump coronary artery bypass surgery by Dr. Villavicencio. Continue aspirin and beta blockers Patient's family chest pain and the patient is currently off IV heparin Computed tomography scan of the chest shows no acute abnormalities. Carotid Dopplers were also done and it showed some mild atherosclerotic disease without evidence of any significant stenosis. Cardiac surgery to be done on 05/10/2023 The patient be able to undergo thoracotomy bypass surgery as the patient's overall pulmonary status is stable. Echo was noted, no significant abnormalities involving the valves. The patient is an ejection fraction of 45-50%.
[2023-05-10] MEDS: ACETAMINOPHEN TAB 325 MG TAB PO PRN
[2023-05-10] MEDS: NITROGLYCERIN OINT 1 INCH/GM PACKET TOPICAL SCH
[2023-05-10] MEDS ORDERED: PROTAMINE SULFATE 250 MG in EMPTY BAG 1 BAG IV ONE (05:00)
[2023-05-10] MEDS ORDERED: MANNITOL 25% 12.5 GM/50 ML VIAL IV ONE ×2 (05:00)
[2023-05-10] MEDS ORDERED: HEPARIN SODIUM 1,000 UN/ML (10ML VL) IV ONE (05:00)
[2023-05-10] MEDS ORDERED: TRANEXAMIC ACID 2,000 MG in SODIUM CHLORIDE 0.9% 80 ML IV ONE ×4 (05:00)
[2023-05-10] MEDS ORDERED: ATORVASTATIN 10 MG TAB PO ONE (05:00)
[2023-05-10] MEDS ORDERED: PHENYLEPHRINE 40 MG in SODIUM CHLORIDE 0.9% 250 ML IV ONE (05:00)
[2023-05-10] MEDS ORDERED: ELECTROLYTE-A SOLUTION 1,000 ML with POTASSIUM CHLORIDE 40 MEQ, MAGNESIUM SULFATE 16 ME... IV ONE ×5 (05:00)
[2023-05-10] MEDS ORDERED: ALBUMIN HUMAN 5% 500 ML in EMPTY BAG 1 BAG IVPB ONE ×6 (05:00)
[2023-05-10] MEDS ORDERED: CALCIUM CHLORIDE 100 MG/ML 10 ML SYRINGE IVP ONE (05:00)
[2023-05-10] MEDS ORDERED: HEPARIN SODIUM,PORCINE (1 ML) 5,000 UNIT in SODIUM CHLORIDE 0.9% 500 ML 500 ML IV ONE (05:00)
[2023-05-10] MEDS ORDERED: ALBUMIN HUMAN 25% 50 ML in EMPTY BAG 1 BAG IVPB ONE (05:00)
[2023-05-10] MEDS ORDERED: PROTAMINE SULFATE 10 MG/ML 25 ML VIAL IV ONE ×2 (05:00→07:42)
[2023-05-10] MEDS ORDERED: DILTIAZEM 125 MG in SODIUM CHLORIDE 0.9% 100 ML IV SCH (05:00)
[2023-05-10] MEDS ORDERED: LACTATED RINGERS 1,000 ML IV SCH (05:00)
[2023-05-10] MEDS ORDERED: METOPROLOL TARTRATE 12.5 MG TAB PO ONE (05:00)
[2023-05-10] MEDS ORDERED: CLEVIDIPINE BUTYRATE 25 MG in EMPTY BAG 1 BAG IV SCH ×2 (05:00→12:30)
[2023-05-10] MEDS ORDERED: NITROGLYCERIN-D5W PMX 50 MG in DEXTROSE/WATER 1 250ML.BAG IV SCH ×2 (05:00→12:30)
[2023-05-10] MEDS ORDERED: ASPIRIN 325 MG TAB PO ONE (05:00)
[2023-05-10] MEDS ORDERED: NOREPINEPHRINE 4 MG in SODIUM CHLORIDE 0.9% 250 ML IV SCH (05:00)
[2023-05-10] MEDS ORDERED: PAPAVERINE 360 MG in SODIUM CHLORIDE 0.9% 90 ML IV ONE (05:00)
[2023-05-10] MEDS ORDERED: PHENYLEPHRINE 10 MG/ML VIAL IV ONE (05:00)
[2023-05-10] MEDS ORDERED: ceFAZolin 1,000 MG in SODIUM CHLORIDE 0.9% IRRIGATIO 1,000 ML IRRIGATION ONE (05:00)
[2023-05-10] MEDS ORDERED: SODIUM BICARB 8.4% 50 ML SYR (1 MEQ/ML) IV ONE (05:00)
[2023-05-10] MEDS ORDERED: NITROGLYCERIN-D5W PMX 25 MG/250 ML BTL IV ONE (05:00)
[2023-05-10] MEDS ORDERED: CHLORHEXIDINE GLUCONATE 15 ML CUP MUCOUS MEM ONE (05:00)
[2023-05-10] MEDS ORDERED: ELECTROLYTE-A SOLUTION 1,000 ML with POTASSIUM CHLORIDE 100 MEQ, MAGNESIUM SULFATE 16 M... IV ONE ×5 (05:00)
[2023-05-10] MEDS ORDERED: INSULIN REGULAR 100 UNIT in SODIUM CHLORIDE 0.9% 100 ML IV SCH ×2 (05:00→13:00)
[2023-05-10] MEDS ORDERED: MAGNESIUM SULFATE 16.24 MEQ in EMPTY SYRINGE 1 SYR IV ONE (05:00)
[2023-05-10 05:44] LABS: Glucose,Whole Blood 93 mg/dL (70-110)
[2023-05-10] MEDS ORDERED: VECURONIUM 10 MG VIAL IV ONE (07:42)
[2023-05-10] MEDS ORDERED: ALBUMIN HUMAN 5% (25gm) 500 ML VIAL IVPB ONE (07:42)
[2023-05-10] MEDS ORDERED: MIDAZOLAM HCL 10 MG/10 ML VIAL ONE (07:42)
[2023-05-10] MEDS ORDERED: HEPARIN SODIUM,PORCINE 10,000 UNIT/ML 1 ML VIAL ONE (07:42)
[2023-05-10] MEDS ORDERED: HEPARIN SODIUM,PORCINE 5,000 UNIT/ML 1 ML VIAL ONE (07:42)
[2023-05-10] MEDS ORDERED: PROPOFOL 10 MG/ML 20 ML VIAL IV ONE (07:42)
[2023-05-10] MEDS ORDERED: fentaNYL (PF) 50 MCG/ML 50 ML VIAL ONE (07:42)
[2023-05-10] MEDS ORDERED: NITROGLYCERIN-D5W PMX 50 MG/250 ML BOTTLE IV ONE (07:42)
[2023-05-10] MEDS ORDERED: PHENYLEPHRINE-0.9% NACL SYG 1,000 MCG/10 ML SYRINGE ONE (07:42)
[2023-05-10] MEDS ORDERED: WATER FOR INJECTION, STERILE 10 ML VIAL IV ONE (07:42)
[2023-05-10] MEDS ORDERED: LIDOCAINE 1% INJ 10MG/ML (20 ML MDV) ONE (07:42)
[2023-05-10] MEDS ORDERED: SUCCINYLCHOLINE CHLORIDE 200 MG/10 ML VIAL IV ONE (07:42)
--- NOTE | 2023-05-10 08:47 | P.ANPRN ---
Procedure Note - Anesthesia - Invasive Line Right Central Line Time Out Performed: Yes (724) Date of Procedure: 05/10/23 Time of Procedure: 07:25 Location of Patient: Phase I Preparation: Sterile Prep, Sterile Dressing Central Line Location: Internal Jugular (right) Ultrasound Used: Yes Purpose - Visualization and Identification of Vasculature: Yes Needle Guage: 18g Image Stored and Saved: Yes Narrative: Central line placement per sterile protocol utilized. +local +us +angio +cvp +jwire +uneventful dilation and introduction right IJ cordis
--- NOTE | 2023-05-10 08:49 | P.ANPRN ---
Procedure Note - Anesthesia - Invasive Line Right [place] Sebastian Time Out Performed: Yes (724) Date of Procedure: 05/10/23 Time of Procedure: 07:36 Location of Patient: Phase I [place] Sbeastian Line Location: Internal Jugular (right) Ultrasound Used: No Purpose - Visualization and Identification of Vasculature: No Image Stored and Saved: No Narrative: Central line placement per sterile protocol utilized. [place] floated in sheath to wedge at 50cm. b/d. w/d 5cm. 45cm.
--- NOTE | 2023-05-10 08:50 | P.ANPRN ---
Procedure Note - Anesthesia - NAVDEEP Intraop Pre Bypass NAVDEEP Intraop - Anesthesia Indication: cabg Date of Procedure: 05/10/23 Pre-operative Diagnosis: cad Post-operative Diagnosis: same Surgeon: Ricky Villavicencio Left Ventricle: wnl Ejection Fraction: Other (50%) Regional Wall Motion Abnormalities: None Left Ventricle Hypertrophy: No Right Ventricle: wnl R. Ventricle Function: Normal Anatomy: Trileaflet Aortic Stenosis: None Aortic Regurgitation: None Mitral Stenosis: None Mitral Regurgitation: Trace Tricuspid Stenosis: None Tricuspid Regurgitation: None Pulmonic Stenosis: None Pulmonic Regurgitation: None R. Atrial Dilation: No R. Atrial PFO: No L. Atrial Dilation: No Aortic Dissection: No Aortic Calcification: None Plural Effusion: None
--- NOTE | 2023-05-10 12:21 | P.OP ---
Date of Procedure: 05/10/23 Preoperative Diagnosis: CAD Postoperative Diagnosis: CAD Procedure(s) Performed: 1. Off pump coronary artery bypass grafting x 2. Left internal thoracic artery (in-situ) to left anterior descending artery. Left radial artery from aorta to ramus intermedius. 2. Endoscopic left radial artery harvest 3. Left atrial appendage ligation with #35mm AtriClip 4. Graft flow measurements using the Medi-Stim flow meter 5. 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 He was diagnosed with NSTEMI and coronary angiography revealed 50% stenosis of the RCA, near total occlusion of the LAD, ostial ramus disease and GENERAL CARGO CLERK circumflex. His STS risk of morbidity and mortality was discussed with the patient and he was in agreement to proceed with CABG which was what we recommended. Operative Findings: HILTON good conduit 1.75mm LAD heavily disease proximal and mid portion, good target distally, 1.5mm. HILTON-LAD Flow 14ml/min, P.I. 5.2 RA good conduit 2.5mm Ramus intermedius good target, intramyocardial 1.5mm. RA- RAMUS flow 18ml/min, P.I. 3.6 Description of Procedure: The patient underwent central line, arterial line, and [place] Sebastian catheter placement in the pre-operative suite by the anesthesia team. The patient was then brought to the operating room and placed in the supine position. General anesthesia was induced and the patient was prepped from the chin to the ankles in the usual sterile fashion. A time-out was performed and antibiotics were given. A midline incision was made on the chest and carried down to bone. A median sternotomy was performed. Hemostasis on the bone was achieved using electrocautery. The left pleura was entered and the left internal thoracic artery was harvested in a skeletonized fashion. Simultaneously a physician housekeeper and laundry assistant harvested the left radial artery in an endoscopic fashion. The patient was systemically heparinized and the ROSS was transected and placed in a papaverine jacuzzi. A left sided chest tube was placed. The right pleura was incised. The pericardium was incised in a reverse T-fashion and a pericardial cradle was created. Stay sutures were placed. A 35mm AtriClip was placed on the left atrial appendage. The left pericardium was incised to make a pathway for the mammary. The stabilizer was placed on the LAD at the distal portion. An arteriorotomy was made and 1.5mm flow through was inserted. An end to side anastomisis between the HILTON and LAD was performed using a running 7-0 prolene. Next the lateral wall was exposed and the ramus intermedius artery was exposed and stabilized. It was intramyocardial but a good target measuring 1.5mm. An arteriortomy was made and, a 1.5mm flow through was inserted. An end to side anastomosis between the radial artery and ramus was performed using a running 7-0 prolene. The flow through was once again removed prior to tieing down the anastomosis. The proximal was fastened to the ascending aorta using a heart string device and 5-0 prolene. Graft flow measurement was conducted and it was excellent in all grafts. The pericardium was partially closed. A 32F chest tube and 19F Ruiz were placed in the mediastinum and right pleura respectively. The sternum was re- approximated using cables. The fascia was closed with Ethibond and the subcutaneous tissues and skin, the sternum, and arm were closed in Vicryl layers. The patient was transported to the ICU without any major complications or prolonged hypotension. NAVDEEP showed improved wall motion at the end of the procedure.
[2023-05-10] MEDS ORDERED: DEXTROSE 5% IN WATER 100 ML with AMIODARONE 150 MG IV PRN (12:22)
[2023-05-10] MEDS ORDERED: IPRATROPIUM-ALBUTEROL 3 ML NEB INHALATION PRN (12:22)
[2023-05-10] MEDS ORDERED: ONDANSETRON 4 MG/2 ML VIAL IVP PRN (12:22)
[2023-05-10] MEDS ORDERED: Phosphorus Replacement Protoco 1 EACH MISC MISCELLANE PRN (12:22)
[2023-05-10] MEDS ORDERED: AMIODARONE 450 MG in DEXTROSE 5% IN WATER 250 ML IV PRN ×2 (12:22)
[2023-05-10] MEDS ORDERED: METOCLOPRAMIDE 5 MG/ML 2 ML VIAL IVP PRN (12:22)
[2023-05-10] MEDS ORDERED: Magnesium Replacement Protocol 1 EACH MISC MISCELLANE PRN (12:22)
[2023-05-10] MEDS ORDERED: CALCIUM GLUCONATE IN NACL 2 GM in SALINE 1 100ML.BAG IVPB PRN (12:22)
[2023-05-10] MEDS ORDERED: Potassium Replacement Protocol 1 EACH MISC MISCELLANE PRN (12:22)
[2023-05-10] MEDS ORDERED: BENZOCAINE/MENTHOL LOZENG 1 EACH LOZENGE MUCOUS MEM PRN (12:22)
[2023-05-10] MEDS ORDERED: AMIODARONE 360 MG in DEXTROSE 5% IN WATER 200 ML IV PRN ×2 (12:22)
[2023-05-10] MEDS ORDERED: DEXTROSE 50% SYRINGE 50 ML IVP PRN ×2 (12:33)
[2023-05-10 12:59] LABS: Glucose,Whole Blood 99 mg/dL (70-110)
--- NOTE | 2023-05-10 13:12 | XR ---
EXAMINATION TYPE: XR chest 1V portable DATE OF EXAM: 05/10/2023 HISTORY: Post Op CABG COMPARISON: NONE TECHNIQUE: Single view of the chest is submitted. FINDINGS: Endotracheal tube, NG tube, SG catheter, mediastinal drains and chest tubes are appropriately placed. Left atrial appendage clip is in place. Post operative changes of CABG. No sizeable pneumothorax. Scattered Pleural-parenchymal opacities greatest left suprahilar region. The heart is not enlarged. IMPRESSION: 1. Post operative changes of CABG.
[2023-05-10 13:27] LABS: ABG Base Excess -1.1 mmol/L; ABG HCO3 25 mmol/L (21-25); ABG Oxygen Saturation 98.4 % (94-97); ABG PCO2 51 mmHg (35-45); ABG PH 7.31 (7.35-7.45); ABG PO2 145 mmHg (83-108); ABG TCO2 27 mmol/L (19-24)
[2023-05-10 13:28] LABS: Allen Test Performed? no
[2023-05-10 13:38] LABS: Glucose,Whole Blood 92 mg/dL (70-110)
[2023-05-10] MEDS: LACTATED RINGERS 1,000 ML IV SCH ×2 (13:38→13:39)
[2023-05-10 13:40] LABS: Basophils % (A) 0 %; Eosinophils # (A) 0.1 k/uL (0-0.7); Eosinophils % (A) 1 %; HCT 37.8 % (39.0-53.0); HGB 12.8 gm/dL (13.0-17.5); Lymphocytes # (A) 0.9 k/uL (1.0-4.8); Lymphocytes % (A) 14 %; MCH 32.8 pg (25.0-35.0); MCHC 33.8 g/dL (31.0-37.0); MCV 96.9 fL (80.0-100.0); Mean Platelet Volume 7.5; Monocytes % (A) 1 %; Neutrophils # (A) 5.3 k/uL (1.3-7.7); Neutrophils % (A) 83 %; Platelet Count 234 k/uL (150-450); WBC 6.3 k/uL (3.8-10.6)
[2023-05-10 13:41] LABS: Ionized Calcium 4.9 mg/dL (4.5-5.3)
[2023-05-10 13:52] LABS: ALT 50 U/L (4-49); AST 68 U/L (17-59); African American GFR (CKD) >90 (>60 ml/min/1.73 sqM); Albumin 3.7 g/dL (3.5-5.0); Alkaline Phosphatase 44 U/L (38-126); Anion Gap 9 mmol/L; Blood Urea Nitrogen 15 mg/dL (9-20); Calcium 8.2 mg/dL (8.4-10.2); Carbon Dioxide 23 mmol/L (22-30); Chloride 107 mmol/L (98-107); Glucose 94 mg/dL (74-99); INR 1.1 (<1.2); Magnesium 2.3 mg/dL (1.6-2.3); Non-African American GFR(CKD) >90 (>60 ml/min/1.73 sqM); Partial Thromboplastin Time 23.8 sec (22.0-30.0); Potassium 4.2 mmol/L (3.5-5.1); Sodium 139 mmol/L (137-145); Total Bilirubin 0.8 mg/dL (0.2-1.3); Total Protein 5.9 g/dL (6.3-8.2)
[2023-05-10 14:01] LABS: Glucose,Whole Blood 94 mg/dL (70-110)
[2023-05-10] MEDS: ALBUMIN HUMAN 5% 250 ML in EMPTY BAG 1 BAG IVPB PRN ×2 (14:02→14:14)
[2023-05-10 15:01] LABS: Glucose,Whole Blood 106 mg/dL (70-110)
[2023-05-10] MEDS: HEPARIN SODIUM,PORCINE 5,000 UNIT/ML 1 ML VIAL SQ SCH ×2 (15:25→23:04)
[2023-05-10 15:45] LABS: Basophils % (A) 0 %; Eosinophils # (A) 0.1 k/uL (0-0.7); Eosinophils % (A) 1 %; HCT 34.3 % (39.0-53.0); HGB 11.8 gm/dL (13.0-17.5); Lymphocytes # (A) 0.4 k/uL (1.0-4.8); Lymphocytes % (A) 5 %; MCH 32.5 pg (25.0-35.0); MCHC 34.2 g/dL (31.0-37.0); MCV 94.9 fL (80.0-100.0); Mean Platelet Volume 7.5; Monocytes # (A) 0.2 k/uL (0-1.0); Monocytes % (A) 2 %; Neutrophils # (A) 7.3 k/uL (1.3-7.7); Neutrophils % (A) 91 %; Platelet Count 261 k/uL (150-450); RBC 3.62 m/uL (4.30-5.90)
[2023-05-10 15:56] LABS: Glucose,Whole Blood 105 mg/dL (70-110)
[2023-05-10] MEDS: IPRATROPIUM-ALBUTEROL 3 ML NEB INHALATION SCH ×2 (16:30→19:37)
--- NOTE | 2023-05-10 16:31 | P.PN ---
Subjective Progress Note Date: 05/10/23 I am seeing this patient in new consultation today 05/07/2023 on the cardiac stepdown unit for a preoperative pulmonary evaluation for a tentative CABG. Patient is a 47-year-old white male past medical history significant for mild intermittent asthma, hyperlipidemia, and hypertension. Denies any premature history of heart disease. Patient presented to the emergency room after developing substernal chest pressure which radiated up his neck that started at 11 PM on May 05, he presented to the hospital early the next morning. Patient was also experiencing some nausea and shortness of breath at that time. He did have a heart catheterization yesterday afternoon, and was found to have multivessel coronary artery disease. No PCI was performed. There was severe diffuse disease involving the left anterior descending artery, chronic total occlusion of the left circumflex, and moderate disease of the RCA. Cardiothoracic surgery was consulted for possible open-heart surgery. Patient is currently sitting up in bed, on room air, in no acute distress. He denies any current chest pain. He is on heparin infusion per protocol. Patient's pulmonary status seems to be stable. He does admit history of mild intermittent asthma In which he controls with when necessary albuterol. He states that he almost never needs to use his inhaler. Denies ever being a tobacco smoker, however, he does smoke marijuana daily. Bedside spirometry shows an FEV1 of 2.74 L or 72% of predicted. ECG on arrival showed sinus bradycardia with no significant ST elevation. There was less than 1 mm of elevation in lead 1. Troponins were elevated and are trending up at 0.257, 0.27, and 1.14 respectively. CBC on arrival was unremarkable. D-dimer not elevated. CMP unremarkable. Hemodynamically the patient seems stable. On today's evaluation of 05/08/2023, the patient has no specific complaints. History of any chest pain. He is having some sinus bradycardia, asymptomatic and is hemodynamically stable. No chest pain. No other complaints otherwise for now. The plan is to proceed with surgery on 05/10/2023. on today's evaluation of 05/09/2023, the patient's by mouth any chest pain. Hemodynamically stable. No complaints. The plan is to proceed with surgery tomorrow. Hemoglobin was at 12.5, BUN is at 60 with a creatinine of 1.02 and a sodium level is at 138. The patient has no other complaints otherwise for now. Ready to undergo his cardiac surgery tomorrow. On 05/10/2023, the patient is post bypass surgery and the patient was evaluated immediately after arrival to the intensive care unit. The patient underwent off pump coronary artery bypass surgery 2 with HILTON to LAD and left radial to ramus intermedius. At this point in time, the patient sedated on a mechanical ventilator. The patient is currently off propofol running at 40 mcg/kg/m and the patient is adequately sedated. The patient is a mechanical ventilator assist control mode at a rate of 12, tidal volume of 400, 5-100% with a PEEP of 5. The patient's blood gases showed a pH of 7.31 with episodes of 51 and pO2 of 145. Based on that, the respiratory rate was brought up to 24 and FiO2 was up to 80%. The patient has 2 mediastinal chest tubes and total amount of output has been 100 mL and there is also trace output from the left lower chest tube. Chest x-ray shows adequate expansion of both lungs. The patient has Kathleen-Sebastian catheter in place. ET tube is in a good location. Cardiac output is at 6.6 w ith an index of 3.3. The pulmonary artery pressure is 31/20. BP is 102/55 the patient is being given volume to support the blood pressure. Urine output is adequate. The patient's cardiac rhythm is sinus and the patient is relatively bradycardic with a heart rate ranging between 55 and 65 bpm. Hemoglobin is 11.8 and the echoes at 8 with a platelet count of 261. The rest of the electrolytes are normal. BUN is a 50 with a creatinine of 0.8. Meanwhile, the patient is on nitroglycerin drip running at 5 mcg/m. Objective - Vital Signs Vital signs: Vital Signs Temp 98.1 F 05/10/23 06:29 Pulse 56 L 05/10/23 15:00 Resp 24 05/10/23 15:00 BP 138/91 05/10/23 06:29 Pulse Ox 100 05/10/23 15:00 FiO2 50 05/10/23 16:21 Intake & Output 05/09/23 05/10/23 05/10/23 18:59 06:59 18:59 Intake Total 1270.000 100 424.920 Output Total 1066 Balance 1270.000 100 -641.080 Weight 108.3 kg Intake: IV 100 367.25 CO/CI 72 Lactated Ringers 1,000 ml 200 @ 50 mls/hr IV .Q20H [facility] Rx#:[id number] Nitroglycerin-D5w Pmx 50 5.25 mg In Dextrose/Water 1 250ml.bag @ 5 MCG/MIN 1.5 mls/hr IV .Q24H [facility] Rx#: [id number] Pressure Bags 36 Intake, IV Titration 250.000 57.670 Amount Heparin Sod,Pork in 0.45% 250.000 NaCl 25,000 unit In 0.45 % NaCl 1 250ml.bag @ 9.19 UNITS/KG/HR 10.004 mls/ hr IV .Q24H [facility] Rx#: [id number] propofoL 1,000 mg In 57.670 Empty Bag 1 bag @ Titrate IV .Q0M [facility] Rx#: [id number] Oral 1020 Output: Chest Tube Drainage 341 Chest Tube Left Pleural/ 313 Mediastinal Chest Tube Mediastinal 28 Urine 475 Estimated Blood Loss 250 Other: Voiding Method Toilet Toilet # Voids 2 2 # Bowel Movements 1 ABP, PAP, CO, CI - Last Documented Arterial Blood Pressure 102/55 Pulmonary Artery Pressure 31/20 Cardiac Output 7.1 Cardiac Index 3.5 - Exam GENERAL EXAM: Alert, 47-year-old obese white male , currently intubated on a mechanical ventilator. Orogastric and orotracheal tube are both in place. Patient is sedated with propofol HEAD: Normocephalic and atraumatic EYES: Normal reaction of pupils, equal size. NOSE: Clear with pink turbinates. THROAT: No erythema or exudates. NECK: No masses, no JVD. The patient is a right IJ Kathleen-Sebastian catheter placed. Orogastric and orotracheal tube are both in place. CHEST: No chest wall deformity. LUNGS: Equal air entry with no crackles, wheeze, rhonchi or dullness. The patient has a thoracotomy scar. The patient also has the least chest tube on 1 floor chest tube. No evidence of any air leak. Output was noted. CVS: S1 and S2 normal with no audible murmur, regular rhythm. No extra heart sounds ABDOMEN: No hepatosplenomegaly, active bowel sounds, no guarding or rigidity. SPINE: No scoliosis or deformity SKIN: No rashes CENTRAL NERVOUS SYSTEM: No focal deficits, the patient is currently sedated. EXTREMITIES: There is no peripheral edema, clubbing, or cyanosis. Peripheral pulses are intact. - Labs CBC & Chem 7: 05/10/23 15:35 05/10/23 12:48 Labs: Abnormal Lab Results - Last 24 Hours (Table) 05/09/23 05/10/23 05/10/23 Range/Units 06:53 12:48 12:48 RBC 3.90 L (4.30-5.90) m/uL Hgb 12.8 L (13.0-17.5) gm/dL Hct 37.8 L (39.0-53.0) % Lymphocytes # 0.9 L (1.0-4.8) k/uL ABG pH (7.35-7.45) ABG pCO2 (35-45) mmHg ABG pO2 (83-108) mmHg ABG Total CO2 (19-24) mmol/L ABG O2 Saturation (94-97) % Calcium 8.2 L (8.4-10.2) mg/dL AST 68 H (17-59) U/L ALT 50 H (4-49) U/L Total Protein 5.9 L (6.3-8.2) g/dL Crossmatch See Detail 05/10/23 05/10/23 Range/Units 13:25 15:35 RBC 3.62 L (4.30-5.90) m/uL Hgb 11.8 L (13.0-17.5) gm/dL Hct 34.3 L (39.0-53.0) % Lymphocytes # 0.4 L (1.0-4.8) k/uL ABG pH 7.31 L (7.35-7.45) ABG pCO2 51 H (35-45) mmHg ABG pO2 145 H (83-108) mmHg ABG Total CO2 27 H (19-24) mmol/L ABG O2 Saturation 98.4 H (94-97) % Calcium (8.4-10.2) mg/dL AST (17-59) U/L ALT (4-49) U/L Total Protein (6.3-8.2) g/dL Crossmatch Assessment and Plan Assessment: Coronary artery bypass surgery and the patient underwent an off-pump bypass 2 with HILTON to LAD and radial to ramus intermedius. The patient is currently postop day #0. The patient is hemodynamically stable. Adequate cardiac output and index. Producing adequate amount of urine output. Cardiac rhythm is sinus. Hemodynamically stable. Postthoracotomy, remains intubated on a mechanical ventilator. Chest is in place. Chest x-ray showed no evidence of any pneumothorax or pleural effusions. Chest tubes are in good location. Atelectatic changes are seen in the upper lobes bilaterally. Coronary artery disease and the patient is status post Non-ST elevation myocardial infarction, patient is currently undergoing preoperative workup for a tentative CABG. the tentative surgical date is 05/10/2023, and an echocardiogram was done and the patient has an ejection fraction of 45-50%, normal RV, no significant valvular abnormalities. Multivessel coronary artery disease, as reported during heart catheterization Hyperlipidemia Mild intermittent bronchial asthma, not active Chronic marijuana smoker Obesity, with a BMI of 35.4 kg/m Plan: Chest x-ray and blood gases were reviewed Metastatic ventilator changes were done We'll keep the patient on propofol gradually wean down FiO2 to maintain saturation above 90% Monitor output from the chest tubes monitor hemodynamics Condition stable. Anticipate further weaning within next few hours. The patient meanwhile was kept on propofol We'll continue to follow make further recommendations based on the progress. This evaluation was done in more than 30 minutes. This is a critical care evaluation. Time with Patient: Greater than 30
[2023-05-10 16:51] LABS: ABG Base Excess -1.7 mmol/L; ABG HCO3 24 mmol/L (21-25); ABG Oxygen Saturation 97.8 % (94-97); ABG PCO2 45 mmHg (35-45); ABG PH 7.34 (7.35-7.45); ABG PO2 106 mmHg (83-108); ABG TCO2 25 mmol/L (19-24)
[2023-05-10 17:00] LABS: Allen Test Performed? no
[2023-05-10] MEDS: ACETAMINOPHEN IV (For NPO) 1,000 MG in EMPTY BAG 1 BAG IVPB SCH ×2 (17:14→23:04)
[2023-05-10 17:15] LABS: Glucose,Whole Blood 129 mg/dL (70-110)
[2023-05-10] MEDS: KETOROLAC 15 MG/ML 1 ML VIAL IVP SCH ×2 (17:53→23:04)
[2023-05-10 18:04] LABS: Glucose,Whole Blood 120 mg/dL (70-110)
[2023-05-10] MEDS ORDERED: fentaNYL (PF) 50 MCG/ML 2 ML AMP IVP PRN (18:16)
[2023-05-10 18:57] LABS: Basophils % (A) 0 %; Eosinophils % (A) 0 %; HCT 35.4 % (39.0-53.0); HGB 11.8 gm/dL (13.0-17.5); Lymphocytes # (A) 0.3 k/uL (1.0-4.8); Lymphocytes % (A) 3 %; MCH 31.6 pg (25.0-35.0); MCHC 33.4 g/dL (31.0-37.0); MCV 94.8 fL (80.0-100.0); Mean Platelet Volume 7.9; Monocytes # (A) 0.4 k/uL (0-1.0); Monocytes % (A) 4 %; Neutrophils # (A) 9.4 k/uL (1.3-7.7); Neutrophils % (A) 93 %; Platelet Count 242 k/uL (150-450); RBC 3.74 m/uL (4.30-5.90); RDW 13.3 % (11.5-15.5); WBC 10.2 k/uL (3.8-10.6)
[2023-05-10 19:03] LABS: Glucose,Whole Blood 118 mg/dL (70-110)
[2023-05-10 19:54] LABS: Glucose,Whole Blood 120 mg/dL (70-110)
[2023-05-10] MEDS: HYDROcodone/APAP 10-325MG 1 EACH TAB PO PRN ×2 (19:58→23:53)
[2023-05-10 20:58] LABS: Glucose,Whole Blood 122 mg/dL (70-110)
[2023-05-10] MEDS: MUPIROCIN 2% OINT 22 GM TUBE NASAL SCH (21:47)
[2023-05-10 22:10] LABS: Glucose,Whole Blood 115 mg/dL (70-110)
--- NOTE | 2023-05-10 22:53 | P.PN ---
Subjective Progress Note Date: 05/09/23 patient 47-year-old gentleman with past medical history significant for hypertension, hyperlipidemia and the ER because of chest pain that started last night. Patient stated he was all right last night when he started noticing central chest pain which was severe in intensity, nonradiating, associated with shortness of breath. Patient was complaining of nausea that time. No complain of diaphoresis. No aggravating or relieving factors associated with chest pain. Denied any palpitation. Denied any fever or chills. Because of chest pain, patient came to ER. Initial lab work done in the ER showed WBC 6.3, hemoglobin 13.7, platelet count 320, d-dimer 0.34 sodium 1:30, potassium 4, BUN 13, creatinine 1.14, troponin 0.257 EKG done in the ER heart rate 49, slight ST elevation noticeable in leads 1 and aVL, no reciprocal changes or T-wave inversion seen. Chest x-ray done in the ER showed no active disease Patient was started on heparin, ER physician discussed the case with on-call cardiology and EKGs, they recommended starting heparin and admission to medicine service 05/07. Patient seen and examined. Cardiac catheterization done on 05/06 showed Severe and diffuse disease involving the left anterior descending artery with disease in the proximal and mid and mid to distal portion, Chronic total occlusion of the left circumflex, Intermediate disease involving the right coronary artery. 05/08. Patient seen and examined. Denies any episodes of chest pain. Denies any shortness of breath on exertion. Vital signs stable 05/09/2023 Patient is currently lying in the bed. Awake alert and oriented x3. No complaints of chest pain or shortness of breath. No headache or dizziness or l ightheadedness. Hemodynamically stable. Patient is scheduled for coronary artery bypass graft tomorrow. Laboratory data showed WBC 7.9 hemoglobin 12.5 and platelets 283 Sodium 138 potassium 4.3 chloride 104 bicarb is 28 BUN 16 and creatinine 1.02. Liver enzymes not elevated. REVIEW OF SYSTEMS: CONSTITUTIONAL: No fever, no malaise,. CARDIOVASCULAR: No chest pain, no palpitations, no syncope. PULMONARY: No shortness of breath, no cough, GASTROINTESTINAL: No diarrhea, no nausea, no vomiting, no abdominal pain. NEUROLOGICAL: No headaches, no weakness, PHYSICAL EXAMINATION: GENERAL: The patient is alert and oriented x3, not in any acute distress. Well developed, well nourished. HEENT: Pupils are round and equally reacting to light. EOMI. No scleral icterus. No conjunctival pallor. Normocephalic, atraumatic. No pharyngeal erythema. No thyromegaly. CARDIOVASCULAR: S1 and S2 present. No murmurs, rubs, or gallops. PULMONARY: Chest is clear to auscultation, no wheezing or crackles. ABDOMEN: Soft, nontender, nondistended, normoactive bowel sounds. No palpable organomegaly. MUSCULOSKELETAL: No joint swelling or deformity. EXTREMITIES: No cyanosis, clubbing, or pedal edema. NEUROLOGICAL: Gross neurological examination did not reveal any focal deficits. SKIN: No rashes. Assessment and plan Non-ST elevation myocardial infarction Multivessel coronary artery disease Hyperlipidemia Mild intermittent bronchial asthma, not active Chronic marijuana smoker Obesity, with a BMI of 35.4 kg/m Monitor vital signs Monitor CBC Monitor CMP Continue telemetry monitoring Cardiac catheterization done on 05/06 showed Severe and diffuse disease involving the left anterior descending artery with disease in the proximal and mid and mid to distal portion, Chronic total occlusion of the left circumflex, Intermediate disease involving the right coronary artery. Continue aspirin, Lipitor, Toprol Cardiac surgery consulted, planning for CABG on 05/10 Cardiology and pulmonary is on board. Labs and medication were reviewed.. Continue same treatment. Continue with symptomatic treatment. Resume home medication. Monitor labs and vitals. DVT and GI prophylaxis. Further recommendations as per clinical course of the patient Objective - Vital Signs Vital signs: Vital Signs Temp 98.1 F 05/09/23 08:15 Pulse 53 L 05/09/23 08:15 Resp 16 05/09/23 08:15 BP 108/72 05/09/23 08:15 Pulse Ox 98 05/09/23 08:15 FiO2 Intake & Output 05/08/23 05/09/23 05/09/23 18:59 06:59 18:59 Intake Total 1536.660 221.292 410.513 Balance 1536.660 221.292 410.513 Weight 111.3 kg Intake: Intake, IV Titration 236.660 221.292 230.513 Amount Heparin Sod,Pork in 0.45% 236.660 221.292 230.513 NaCl 25,000 unit In 0.45 % NaCl 1 250ml.bag @ 9.19 UNITS/KG/HR 10.004 mls/ hr IV .Q24H [facility] Rx#: [id number] Oral 1300 180 Other: Voiding Method Toilet Toilet # Voids 1 1 # Bowel Movements 0 - Labs CBC & Chem 7: 05/10/23 18:35 05/10/23 12:48 Labs: Abnormal Lab Results - Last 24 Hours (Table) 05/09/23 05/09/23 05/09/23 Range/Units 06:53 06:53 06:53 RBC 3.92 L (4.30-5.90) m/uL Hgb 12.5 L (13.0-17.5) gm/dL Hct 38.0 L (39.0-53.0) % APTT 51.9 H (22.0-30.0) sec Crossmatch See Detail Microbiology - Last 24 Hours (Table) 05/06/23 15:15 Nasal Screen MRSA/MSSA - Final Nasal Swab
[2023-05-10 23:00] LABS: Glucose,Whole Blood 122 mg/dL (70-110)
--- NOTE | 2023-05-10 23:02 | P.PN ---
Subjective Progress Note Date: 05/10/23 patient 47-year-old gentleman with past medical history significant for hypertension, hyperlipidemia and the ER because of chest pain that started last night. Patient stated he was all right last night when he started noticing central chest pain which was severe in intensity, nonradiating, associated with shortness of breath. Patient was complaining of nausea that time. No complain of diaphoresis. No aggravating or relieving factors associated with chest pain. Denied any palpitation. Denied any fever or chills. Because of chest pain, patient came to ER. Initial lab work done in the ER showed WBC 6.3, hemoglobin 13.7, platelet count 320, d-dimer 0.34 sodium 1:30, potassium 4, BUN 13, creatinine 1.14, troponin 0.257 EKG done in the ER heart rate 49, slight ST elevation noticeable in leads 1 and aVL, no reciprocal changes or T-wave inversion seen. Chest x-ray done in the ER showed no active disease Patient was started on heparin, ER physician discussed the case with on-call cardiology and EKGs, they recommended starting heparin and admission to medicine service 05/07. Patient seen and examined. Cardiac catheterization done on 05/06 showed Severe and diffuse disease involving the left anterior descending artery with disease in the proximal and mid and mid to distal portion, Chronic total occlusion of the left circumflex, Intermediate disease involving the right coronary artery. 05/08. Patient seen and examined. Denies any episodes of chest pain. Denies any shortness of breath on exertion. Vital signs stable 05/09/2023 Patient is currently lying in the bed. Awake alert and oriented x3. No complaints of chest pain or shortness of breath. No headache or dizziness or l ightheadedness. Hemodynamically stable. Patient is scheduled for coronary artery bypass graft tomorrow. Laboratory data showed WBC 7.9 hemoglobin 12.5 and platelets 283 Sodium 138 potassium 4.3 chloride 104 bicarb is 28 BUN 16 and creatinine 1.02. Liver enzymes not elevated. 05/10/2023 Patient is postoperative day 0 Status post coronary artery bypass graft x2 left internal thoracic artery to le ft anterior descending artery. Left radial artery from aorta to ramus intermedius. Left atrial appendage ligation. Patient was transferred to MICU postoperatively. Patient does have mediastinal chest tubes and left lung chest tube in place. Currently patient is on mechanical ventilator and is also sedated with propofol. On assist control. Chest x-ray showed postoperative changes of CABG Laboratory data showed WBC 6.3 hemoglobin 12.8 and platelets 234 BUN 15 and creatinine 0.85 blood sugar is 94. AST 64 and ALT 15 alk phos 44. REVIEW OF SYSTEMS: could not be obtained. PHYSICAL EXAMINATION: GENERAL: The patient is on mechanical ventilator. Sedated.. Well developed, well nourished. HEENT: Pupils are round and equally reacting to light. EOMI. No scleral icterus. No conjunctival pallor. Normocephalic, atraumatic. No pharyngeal erythema. No thyromegaly. CARDIOVASCULAR: S1 and S2 present. No murmurs, rubs, or gallops. PULMONARY: Chest is clear to auscultation, no wheezing or crackles. Mediastinal and left-sided chest tubes in place. ABDOMEN: Soft, nontender, nondistended, normoactive bowel sounds. No palpable organomegaly. MUSCULOSKELETAL: No joint swelling or deformity. EXTREMITIES: No cyanosis, clubbing, or pedal edema. NEUROLOGICAL: Gross neurological examination did not reveal any focal deficits. SKIN: No rashes. Assessment and plan Status post coronary artery bypass graft x2 with HILTON to LAD and radial to ramus intermedius. Postoperative day 0. Patient is on mechanical ventilator. Non-ST elevation myocardial infarction Multivessel coronary artery disease Hyperlipidemia Mild intermittent bronchial asthma, not active Chronic marijuana smoker Obesity, with a BMI of 35.4 kg/m Patient is currently in MICU. On mechanical ventilator. Sedated with propofol. Monitor vital signs Monitor CBC Monitor CMP Continue telemetry monitoring Continue aspirin, Lipitor, Toprol Cardiac surgery, Cardiology and pulmonary is on board. Labs and medication were reviewed.. DVT and GI prophylaxis. Further recommendations as per clinical course of the patient Objective - Vital Signs Vital signs: Vital Signs Temp 98.1 F 05/10/23 06:29 Pulse 79 05/10/23 17:15 Resp 25 H 05/10/23 17:15 BP 138/91 05/10/23 06:29 Pulse Ox 93 L 05/10/23 17:15 FiO2 50 05/10/23 16:21 Intake & Output 05/09/23 05/10/23 05/10/23 18:59 06:59 18:59 Intake Total 1270.000 100 510.577 Output Total 1053 Balance 1270.000 100 -542.423 Weight 108.3 kg Intake: IV 100 447.75 CO/CI 92 Lactated Ringers 1,000 ml 250 @ 50 mls/hr IV .Q20H [facility] Rx#:[id number] Nitroglycerin-D5w Pmx 50 6.75 mg In Dextrose/Water 1 250ml.bag @ 5 MCG/MIN 1.5 mls/hr IV .Q24H [facility] Rx#: [id number] Pressure Bags 45 Intake, IV Titration 250.000 62.827 Amount Heparin Sod,Pork in 0.45% 250.000 NaCl 25,000 unit In 0.45 % NaCl 1 250ml.bag @ 9.19 UNITS/KG/HR 10.004 mls/ hr IV .Q24H [facility] Rx#: [id number] Insulin Regular 100 unit 0.825 In Sodium Chloride 0.9% 100 ml @ Per Protocol IV .Q0M [facility] Rx#:[id number] propofoL 1,000 mg In 62.002 Empty Bag 1 bag @ Titrate IV .Q0M [facility] Rx#: [id number] Oral 1020 Output: Chest Tube Drainage 263 Chest Tube Left Pleural/ 209 Mediastinal Chest Tube Mediastinal 54 Drainage 30 Left 30 Urine 510 Estimated Blood Loss 250 Other: Voiding Method Toilet Toilet Indwelling Catheter # Voids 2 2 # Bowel Movements 1 ABP, PAP, CO, CI - Last Documented Arterial Blood Pressure 109/64 Pulmonary Artery Pressure 41/16 Cardiac Output 7 Cardiac Index 3.5 - Labs CBC & Chem 7: 05/10/23 18:35 05/10/23 12:48 Labs: Abnormal Lab Results - Last 24 Hours (Table) 05/09/23 05/10/23 05/10/23 Range/Units 06:53 12:48 12:48 RBC 3.90 L (4.30-5.90) m/uL Hgb 12.8 L (13.0-17.5) gm/dL Hct 37.8 L (39.0-53.0) % Lymphocytes # 0.9 L (1.0-4.8) k/uL ABG pH (7.35-7.45) ABG pCO2 (35-45) mmHg ABG pO2 (83-108) mmHg ABG Total CO2 (19-24) mmol/L ABG O2 Saturation (94-97) % POC Glucose (mg/dL) (70-110) mg/dL Calcium 8.2 L (8.4-10.2) mg/dL AST 68 H (17-59) U/L ALT 50 H (4-49) U/L Total Protein 5.9 L (6.3-8.2) g/dL Crossmatch See Detail 05/10/23 05/10/23 05/10/23 Range/Units 13:25 15:35 16:50 RBC 3.62 L (4.30-5.90) m/uL Hgb 11.8 L (13.0-17.5) gm/dL Hct 34.3 L (39.0-53.0) % Lymphocytes # 0.4 L (1.0-4.8) k/uL ABG pH 7.31 L 7.34 L (7.35-7.45) ABG pCO2 51 H (35-45) mmHg ABG pO2 145 H (83-108) mmHg ABG Total CO2 27 H 25 H (19-24) mmol/L ABG O2 Saturation 98.4 H 97.8 H (94-97) % POC Glucose (mg/dL) (70-110) mg/dL Calcium (8.4-10.2) mg/dL AST (17-59) U/L ALT (4-49) U/L Total Protein (6.3-8.2) g/dL Crossmatch 05/10/23 05/10/23 Range/Units 17:13 18:02 RBC (4.30-5.90) m/uL Hgb (13.0-17.5) gm/dL Hct (39.0-53.0) % Lymphocytes # (1.0-4.8) k/uL ABG pH (7.35-7.45) ABG pCO2 (35-45) mmHg ABG pO2 (83-108) mmHg ABG Total CO2 (19-24) mmol/L ABG O2 Saturation (94-97) % POC Glucose (mg/dL) 129 H 120 H (70-110) mg/dL Calcium (8.4-10.2) mg/dL AST (17-59) U/L ALT (4-49) U/L Total Protein (6.3-8.2) g/dL Crossmatch
[2023-05-11] MEDS ORDERED: HYDROcodone/APAP 5-325MG 1 EACH TAB PO PRN (00:29)
[2023-05-11 00:55] LABS: Glucose,Whole Blood 115 mg/dL (70-110)
[2023-05-11 03:11] LABS: Glucose,Whole Blood 126 mg/dL (70-110)
[2023-05-11 04:16] LABS: Glucose,Whole Blood 107 mg/dL (70-110)
--- NOTE | 2023-05-11 04:39 | XR ---
EXAM: XR Chest, 1 View CLINICAL HISTORY: ITS.REASON XR Reason: Post Operative Cardiac Surgery TECHNIQUE: Frontal view of the chest. COMPARISON: No relevant prior studies available. FINDINGS: Lungs: Unremarkable. No consolidation. Pleural space: Unremarkable. No pneumothorax. Heart: Unremarkable. No cardiomegaly. Mediastinum: Unremarkable. Bones/joints: Unremarkable. Tubes, lines and devices: Right-sided [place]-Sebastian catheter with its tip overlying the pulmonary outflow tract. Postoperative changes median sternotomy. Multiple lines overlying chest limited evaluation. Left upper lobe infiltrate. Likely of infectious are not inflammatory etiology. IMPRESSION: 1. Limited exam 2. Left upper lobe pneumonia.
[2023-05-11 04:57] LABS: Ionized Calcium 4.8 mg/dL (4.5-5.3)
[2023-05-11 05:07] LABS: ALT 45 U/L (4-49); AST 61 U/L (17-59); African American GFR (CKD) >90 (>60 ml/min/1.73 sqM); Albumin 3.7 g/dL (3.5-5.0); Alkaline Phosphatase 41 U/L (38-126); Anion Gap 7 mmol/L; Blood Urea Nitrogen 18 mg/dL (9-20); Calcium 8.5 mg/dL (8.4-10.2); Carbon Dioxide 24 mmol/L (22-30); Chloride 105 mmol/L (98-107); Glucose 104 mg/dL (74-99); Magnesium 2.3 mg/dL (1.6-2.3); Non-African American GFR(CKD) >90 (>60 ml/min/1.73 sqM); Potassium 4.8 mmol/L (3.5-5.1); Sodium 136 mmol/L (137-145); Total Bilirubin 0.7 mg/dL (0.2-1.3); Total Protein 5.9 g/dL (6.3-8.2)
[2023-05-11 05:08] LABS: Basophils % (A) 0 %; Eosinophils % (A) 0 %; HCT 37.2 % (39.0-53.0); HGB 12.1 gm/dL (13.0-17.5); Lymphocytes # (A) 0.8 k/uL (1.0-4.8); Lymphocytes % (A) 9 %; MCH 31.1 pg (25.0-35.0); MCHC 32.4 g/dL (31.0-37.0); Mean Platelet Volume 8.6; Monocytes # (A) 0.6 k/uL (0-1.0); Monocytes % (A) 7 %; Neutrophils # (A) 7.2 k/uL (1.3-7.7); Neutrophils % (A) 83 %; Platelet Count 223 k/uL (150-450); RBC 3.88 m/uL (4.30-5.90); RDW 13.4 % (11.5-15.5); WBC 8.7 k/uL (3.8-10.6)
[2023-05-11] MEDS: HYDROcodone/APAP 10-325MG 1 EACH TAB PO PRN ×4 (05:14→19:57)
[2023-05-11] MEDS: KETOROLAC 15 MG/ML 1 ML VIAL IVP SCH ×4 (06:21→23:52)
[2023-05-11 06:54] LABS: Glucose,Whole Blood 115 mg/dL (70-110)
--- NOTE | 2023-05-11 07:29 | P.PN ---
Subjective Progress Note Date: 05/11/23 Principal diagnosis: CAD status post CABG The patient is a 47-year-old gentleman with hypertension and dyslipidemia who was admitted to the hospital with chest discomfort and ruled in for acute coronary syndrome. He underwent a heart catheterization and was found to have severe 2 vessel CAD and intermediate one-vessel CAD. Was seen by the cardiothoracic surgical team and he underwent CABG 2 with HILTON to LAD and radial artery to ramus intermedius May [id number] postovulation day #1. Overall he seems to be doing good. He is on nitro drip at this point. Beside that hemodynamically stable. Urine output is good. The chest x-ray appeared to be slightly hazy and wet and he might benefit from a dose of Lasix IV. Beside that he is on intermediate intensity statin which I'm going to increase into high intensity statin. Beside that he is on aspirin and Plavix. From the cardiovascular standpoint of view, we'll continue current medical regimen was increased the dose of statin. The examination is remarkable for diminished breathing sounds bilaterally Assessment CAD as described above status post CABG Hypertension Dyslipidemia Plan Increase the dose of statin Continue aspirin and Plavix Give the patient a dose of Lasix IV Follow-up with the patient Objective - Vital Signs Vital signs: Vital Signs Temp 98.2 F 05/11/23 04:00 Pulse 56 L 05/11/23 07:00 Resp 13 05/11/23 07:00 BP 101/67 05/11/23 07:00 Pulse Ox 92 L 05/11/23 07:00 FiO2 50 05/10/23 16:21 Intake & Output 05/10/23 05/11/23 05/11/23 18:59 06:59 18:59 Intake Total 013.122 6381.056 Output Total 1145 995 Balance -553.923 179.056 Weight 113.4 kg Intake: IV 528.25 902.5 CO/CI 112 140 Lactated Ringers 1,000 ml 300 650 @ 50 mls/hr IV .Q20H [facility] Rx#:[id number] Nitroglycerin-D5w Pmx 50 8.25 1.5 mg In Dextrose/Water 1 250ml.bag @ 5 MCG/MIN 1.5 mls/hr IV .Q24H [facility] Rx#: [id number] Pressure Bags 54 111 Intake, IV Titration 62.827 21.556 Amount Insulin Regular 100 unit 0.825 5.706 In Sodium Chloride 0.9% 100 ml @ Per Protocol IV .Q0M [facility] Rx#:[id number] Nitroglycerin-D5w Pmx 50 15.85 mg In Dextrose/Water 1 250ml.bag @ 5 MCG/MIN 1.5 mls/hr IV .Q24H [facility] Rx#: [id number] propofoL 1,000 mg In 62.002 Empty Bag 1 bag @ Titrate IV .Q0M [facility] Rx#: [id number] Oral 250 Output: Chest Tube Drainage 310 450 Chest Tube Left Pleural/ 229 70 Mediastinal Chest Tube Mediastinal 81 380 Drainage 30 Left 30 Urine 555 545 Estimated Blood Loss 250 Other: Voiding Method Indwelling Catheter Indwelling Catheter ABP, PAP, CO, CI - Last Documented Arterial Blood Pressure 86/63 Pulmonary Artery Pressure 27/16 Cardiac Output 7.2 Cardiac Index 3.6 - Labs CBC & Chem 7: 05/11/23 04:41 05/11/23 04:41 Labs: Abnormal Lab Results - Last 24 Hours (Table) 05/09/23 05/10/23 05/10/23 Range/Units 06:53 12:48 12:48 RBC 3.90 L (4.30-5.90) m/uL Hgb 12.8 L (13.0-17.5) gm/dL Hct 37.8 L (39.0-53.0) % Neutrophils # (1.3-7.7) k/uL Lymphocytes # 0.9 L (1.0-4.8) k/uL ABG pH (7.35-7.45) ABG pCO2 (35-45) mmHg ABG pO2 (83-108) mmHg ABG Total CO2 (19-24) mmol/L ABG O2 Saturation (94-97) % Sodium (137-145) mmol/L Glucose (74-99) mg/dL POC Glucose (mg/dL) (70-110) mg/dL Calcium 8.2 L (8.4-10.2) mg/dL AST 68 H (17-59) U/L ALT 50 H (4-49) U/L Total Protein 5.9 L (6.3-8.2) g/dL Crossmatch See Detail 05/10/23 05/10/23 05/10/23 Range/Units 13:25 15:35 16:50 RBC 3.62 L (4.30-5.90) m/uL Hgb 11.8 L (13.0-17.5) gm/dL Hct 34.3 L (39.0-53.0) % Neutrophils # (1.3-7.7) k/uL Lymphocytes # 0.4 L (1.0-4.8) k/uL ABG pH 7.31 L 7.34 L (7.35-7.45) ABG pCO2 51 H (35-45) mmHg ABG pO2 145 H (83-108) mmHg ABG Total CO2 27 H 25 H (19-24) mmol/L ABG O2 Saturation 98.4 H 97.8 H (94-97) % Sodium (137-145) mmol/L Glucose (74-99) mg/dL POC Glucose (mg/dL) (70-110) mg/dL Calcium (8.4-10.2) mg/dL AST (17-59) U/L ALT (4-49) U/L Total Protein (6.3-8.2) g/dL Crossmatch 05/10/23 05/10/23 05/10/23 Range/Units 17:13 18:02 18:35 RBC 3.74 L (4.30-5.90) m/uL Hgb 11.8 L (13.0-17.5) gm/dL Hct 35.4 L (39.0-53.0) % Neutrophils # 9.4 H (1.3-7.7) k/uL Lymphocytes # 0.3 L (1.0-4.8) k/uL ABG pH (7.35-7.45) ABG pCO2 (35-45) mmHg ABG pO2 (83-108) mmHg ABG Total CO2 (19-24) mmol/L ABG O2 Saturation (94-97) % Sodium (137-145) mmol/L Glucose (74-99) mg/dL POC Glucose (mg/dL) 129 H 120 H (70-110) mg/dL Calcium (8.4-10.2) mg/dL AST (17-59) U/L ALT (4-49) U/L Total Protein (6.3-8.2) g/dL Crossmatch 05/10/23 05/10/23 05/10/23 Range/Units 19:02 19:53 20:57 RBC (4.30-5.90) m/uL Hgb (13.0-17.5) gm/dL Hct (39.0-53.0) % Neutrophils # (1.3-7.7) k/uL Lymphocytes # (1.0-4.8) k/uL ABG pH (7.35-7.45) ABG pCO2 (35-45) mmHg ABG pO2 (83-108) mmHg ABG Total CO2 (19-24) mmol/L ABG O2 Saturation (94-97) % Sodium (137-145) mmol/L Glucose (74-99) mg/dL POC Glucose (mg/dL) 118 H 120 H 122 H (70-110) mg/dL Calcium (8.4-10.2) mg/dL AST (17-59) U/L ALT (4-49) U/L Total Protein (6.3-8.2) g/dL Crossmatch 05/10/23 05/10/23 05/11/23 Range/Units 22:09 22:59 00:52 RBC (4.30-5.90) m/uL Hgb (13.0-17.5) gm/dL Hct (39.0-53.0) % Neutrophils # (1.3-7.7) k/uL Lymphocytes # (1.0-4.8) k/uL ABG pH (7.35-7.45) ABG pCO2 (35-45) mmHg ABG pO2 (83-108) mmHg ABG Total CO2 (19-24) mmol/L ABG O2 Saturation (94-97) % Sodium (137-145) mmol/L Glucose (74-99) mg/dL POC Glucose (mg/dL) 115 H 122 H 115 H (70-110) mg/dL Calcium (8.4-10.2) mg/dL AST (17-59) U/L ALT (4-49) U/L Total Protein (6.3-8.2) g/dL Crossmatch 05/11/23 05/11/23 05/11/23 Range/Units 03:09 04:41 04:41 RBC 3.88 L (4.30-5.90) m/uL Hgb 12.1 L (13.0-17.5) gm/dL Hct 37.2 L (39.0-53.0) % Neutrophils # (1.3-7.7) k/uL Lymphocytes # 0.8 L (1.0-4.8) k/uL ABG pH (7.35-7.45) ABG pCO2 (35-45) mmHg ABG pO2 (83-108) mmHg ABG Total CO2 (19-24) mmol/L ABG O2 Saturation (94-97) % Sodium 136 L (137-145) mmol/L Glucose 104 H (74-99) mg/dL POC Glucose (mg/dL) 126 H (70-110) mg/dL Calcium (8.4-10.2) mg/dL AST 61 H (17-59) U/L ALT (4-49) U/L Total Protein 5.9 L (6.3-8.2) g/dL Crossmatch 05/11/23 Range/Units 06:53 RBC (4.30-5.90) m/uL Hgb (13.0-17.5) gm/dL Hct (39.0-53.0) % Neutrophils # (1.3-7.7) k/uL Lymphocytes # (1.0-4.8) k/uL ABG pH (7.35-7.45) ABG pCO2 (35-45) mmHg ABG pO2 (83-108) mmHg ABG Total CO2 (19-24) mmol/L ABG O2 Saturation (94-97) % Sodium (137-145) mmol/L Glucose (74-99) mg/dL POC Glucose (mg/dL) 115 H (70-110) mg/dL Calcium (8.4-10.2) mg/dL AST (17-59) U/L ALT (4-49) U/L Total Protein (6.3-8.2) g/dL Crossmatch
[2023-05-11] MEDS ORDERED: fentaNYL (PF) 50 MCG/ML 2 ML AMP IV STA (07:49)
[2023-05-11] MEDS: CLOPIDOGREL 75 MG TAB PO SCH (08:41)
[2023-05-11] MEDS: ASPIRIN 325 MG TAB PO SCH (08:41)
[2023-05-11] MEDS: ATORVASTATIN 80 MG TAB PO SCH (08:41)
[2023-05-11] MEDS: HEPARIN SODIUM,PORCINE 5,000 UNIT/ML 1 ML VIAL SQ SCH ×3 (08:42→23:51)
[2023-05-11] MEDS: MUPIROCIN 2% OINT 22 GM TUBE NASAL SCH ×2 (08:43→20:21)
[2023-05-11 08:54] LABS: Glucose,Whole Blood 115 mg/dL (70-110)
[2023-05-11] MEDS ORDERED: MAGNESIUM HYDROXIDE 2,400 MG/30 ML CUP PO PRN (09:00)
[2023-05-11] MEDS ORDERED: PANTOPRAZOLE 40 MG/10 ML VIAL IVP SCH (09:00)
[2023-05-11] MEDS ORDERED: bisacodyL 10 MG SUPP RECTAL PRN (09:00)
[2023-05-11] MEDS ORDERED: ATORVASTATIN 40 MG TAB PO SCH (09:00)
[2023-05-11] MEDS: METOPROLOL TARTRATE 12.5 MG TAB PO SCH ×3 (09:21→20:21)
[2023-05-11] MEDS: IPRATROPIUM-ALBUTEROL 3 ML NEB INHALATION SCH ×4 (09:39→19:58)
--- NOTE | 2023-05-11 10:21 | P.PN ---
Subjective Progress Note Date: 05/11/23 I am seeing this patient in new consultation today 05/07/2023 on the cardiac stepdown unit for a preoperative pulmonary evaluation for a tentative CABG. Patient is a 47-year-old white male past medical history significant for mild intermittent asthma, hyperlipidemia, and hypertension. Denies any premature history of heart disease. Patient presented to the emergency room after developing substernal chest pressure which radiated up his neck that started at 11 PM on May 05, he presented to the hospital early the next morning. Patient was also experiencing some nausea and shortness of breath at that time. He did have a heart catheterization yesterday afternoon, and was found to have multivessel coronary artery disease. No PCI was performed. There was severe diffuse disease involving the left anterior descending artery, chronic total occlusion of the left circumflex, and moderate disease of the RCA. Cardiothoracic surgery was consulted for possible open-heart surgery. Patient is currently sitting up in bed, on room air, in no acute distress. He denies any current chest pain. He is on heparin infusion per protocol. Patient's pulmonary status seems to be stable. He does admit history of mild intermittent asthma In which he controls with when necessary albuterol. He states that he almost never needs to use his inhaler. Denies ever being a tobacco smoker, however, he does smoke marijuana daily. Bedside spirometry shows an FEV1 of 2.74 L or 72% of predicted. ECG on arrival showed sinus bradycardia with no significant ST elevation. There was less than 1 mm of elevation in lead 1. Troponins were elevated and are trending up at 0.257, 0.27, and 1.14 respectively. CBC on arrival was unremarkable. D-dimer not elevated. CMP unremarkable. Hemodynamically the patient seems stable. On today's evaluation of 05/08/2023, the patient has no specific complaints. History of any chest pain. He is having some sinus bradycardia, asymptomatic and is hemodynamically stable. No chest pain. No other complaints otherwise for now. The plan is to proceed with surgery on 05/10/2023. on today's evaluation of 05/09/2023, the patient's by mouth any chest pain. Hemodynamically stable. No complaints. The plan is to proceed with surgery tomorrow. Hemoglobin was at 12.5, BUN is at 60 with a creatinine of 1.02 and a sodium level is at 138. The patient has no other complaints otherwise for now. Ready to undergo his cardiac surgery tomorrow. On 05/10/2023, the patient is post bypass surgery and the patient was evaluated immediately after arrival to the intensive care unit. The patient underwent off pump coronary artery bypass surgery 2 with HILTON to LAD and left radial to ramus intermedius. At this point in time, the patient sedated on a mechanical ventilator. The patient is currently off propofol running at 40 mcg/kg/m and the patient is adequately sedated. The patient is a mechanical ventilator assist control mode at a rate of 12, tidal volume of 400, 5-100% with a PEEP of 5. The patient's blood gases showed a pH of 7.31 with episodes of 51 and pO2 of 145. Based on that, the respiratory rate was brought up to 24 and FiO2 was up to 80%. The patient has 2 mediastinal chest tubes and total amount of output has been 100 mL and there is also trace output from the left lower chest tube. Chest x-ray shows adequate expansion of both lungs. The patient has Rutherford-Sebastian catheter in place. ET tube is in a good location. Cardiac output is at 6.6 w ith an index of 3.3. The pulmonary artery pressure is 31/20. BP is 102/55 the patient is being given volume to support the blood pressure. Urine output is adequate. The patient's cardiac rhythm is sinus and the patient is relatively bradycardic with a heart rate ranging between 55 and 65 bpm. Hemoglobin is 11.8 and the echoes at 8 with a platelet count of 261. The rest of the electrolytes are normal. BUN is a 50 with a creatinine of 0.8. Meanwhile, the patient is on nitroglycerin drip running at 5 mcg/m. 05/21/2023, the patient is doing extremely well. He was weaned off the [facility] hanical ventilator, extubated without any major difficulties and currently is on room air oxygen. He did have some atelectatic changes in his upper lobes bilaterally and the lung volumes are relatively smaller on today's evaluation. The patient has mediastinum and left pleural chest tube. Output from the mediastinal is in order of 4 50 mL since surgery and to 60 over the past 8 hours, left lower chest tube output has been 300 since surgery and 40 over the past 8 hours. Long as catheter has been removed. Cardiac outputs prior to his Rutherford removal was 7.2 with an index of 3.6. PA pressures were 32/18. Cardiac rhythm is sinus. Hemodynamically stable. Nitroglycerin drip has been disconti nued. He was having some soreness in his chest and he was given fentanyl for pain control. Hemoglobin currently is at 12.1 and a platelet count of 223. The white cell count of 8.7. The sodium is at 136 with a BUN of 18 and a creatinine of 0.8. No focal neurological deficits. Patient is doing well for now. He is currently postop day #1. Objective - Vital Signs Vital signs: Vital Signs Temp 100.4 F H 05/11/23 08:00 Pulse 75 05/11/23 10:00 Resp 18 05/11/23 10:00 BP 109/74 05/11/23 10:00 Pulse Ox 93 L 05/11/23 10:00 FiO2 50 05/10/23 16:21 Intake & Output 05/10/23 05/11/23 05/11/23 18:59 06:59 18:59 Intake Total 843.222 9691.056 109 Output Total 1145 995 70 Balance -553.923 179.056 39 Weight 113.4 kg Intake: IV 528.25 902.5 109 CO/CI 112 140 Lactated Ringers 1,000 ml 300 650 100 @ 50 mls/hr IV .Q20H SUKHJINDER Rx#:[id number] Nitroglycerin-D5w Pmx 50 8.25 1.5 mg In Dextrose/Water 1 250ml.bag @ 5 MCG/MIN 1.5 mls/hr IV .Q24H SUKHJINDER Rx#: [id number] Pressure Bags 54 111 9 Intake, IV Titration 62.827 21.556 Amount Insulin Regular 100 unit 0.825 5.706 In Sodium Chloride 0.9% 100 ml @ Per Protocol IV .Q0M SUKHJINDER Rx#:[id number] Nitroglycerin-D5w Pmx 50 15.85 mg In Dextrose/Water 1 250ml.bag @ 5 MCG/MIN 1.5 mls/hr IV .Q24H SUKHJINDER Rx#: [id number] propofoL 1,000 mg In 62.002 Empty Bag 1 bag @ Titrate IV .Q0M SUKHJINDER Rx#: [id number] Oral 250 Output: Chest Tube Drainage 310 450 20 Chest Tube Left Pleural/ 229 70 0 Mediastinal Chest Tube Mediastinal 81 380 20 Drainage 30 Left 30 Urine 555 545 50 Estimated Blood Loss 250 Other: Voiding Method Indwelling Catheter Indwelling Catheter Indwelling Catheter ABP, PAP, CO, CI - Last Documented Arterial Blood Pressure 86/63 Pulmonary Artery Pressure 32/18 Cardiac Output 7.2 Cardiac Index 3.6 - Exam GENERAL EXAM: Alert, 47-year-old obese white male , currentlyon room air oxygen, awake and alert EYES: Normal reaction of pupils, equal size. NOSE: Clear with pink turbinates. THROAT: No erythema or exudates. NECK: No masses, no JVD. CHEST: No chest wall deformity. LUNGS: Equal air entry with no crackles, wheeze, rhonchi or dullness. The patient has a thoracotomy scar. The patient also has mediastinal and left chest tube CVS: S1 and S2 normal with no audible murmur, regular rhythm. No extra heart sounds ABDOMEN: No hepatosplenomegaly, active bowel sounds, no guarding or rigidity. SPINE: No scoliosis or deformity SKIN: No rashes CENTRAL NERVOUS SYSTEM: No focal deficits, the patient is currently sedated. EXTREMITIES: There is no peripheral edema, clubbing, or cyanosis. Peripheral pulses are intact. - Labs CBC & Chem 7: 05/11/23 04:41 05/11/23 04:41 Labs: Abnormal Lab Results - Last 24 Hours (Table) 05/09/23 05/10/23 05/10/23 Range/Units 06:53 12:48 12:48 RBC 3.90 L (4.30-5.90) m/uL Hgb 12.8 L (13.0-17.5) gm/dL Hct 37.8 L (39.0-53.0) % Neutrophils # (1.3-7.7) k/uL Lymphocytes # 0.9 L (1.0-4.8) k/uL ABG pH (7.35-7.45) ABG pCO2 (35-45) mmHg ABG pO2 (83-108) mmHg ABG Total CO2 (19-24) mmol/L ABG O2 Saturation (94-97) % Sodium (137-145) mmol/L Glucose (74-99) mg/dL POC Glucose (mg/dL) (70-110) mg/dL Calcium 8.2 L (8.4-10.2) mg/dL AST 68 H (17-59) U/L ALT 50 H (4-49) U/L Total Protein 5.9 L (6.3-8.2) g/dL Crossmatch See Detail 05/10/23 05/10/23 05/10/23 Range/Units 13:25 15:35 16:50 RBC 3.62 L (4.30-5.90) m/uL Hgb 11.8 L (13.0-17.5) gm/dL Hct 34.3 L (39.0-53.0) % Neutrophils # (1.3-7.7) k/uL Lymphocytes # 0.4 L (1.0-4.8) k/uL ABG pH 7.31 L 7.34 L (7.35-7.45) ABG pCO2 51 H (35-45) mmHg ABG pO2 145 H (83-108) mmHg ABG Total CO2 27 H 25 H (19-24) mmol/L ABG O2 Saturation 98.4 H 97.8 H (94-97) % Sodium (137-145) mmol/L Glucose (74-99) mg/dL POC Glucose (mg/dL) (70-110) mg/dL Calcium (8.4-10.2) mg/dL AST (17-59) U/L ALT (4-49) U/L Total Protein (6.3-8.2) g/dL Crossmatch 05/10/23 05/10/23 05/10/23 Range/Units 17:13 18:02 18:35 RBC 3.74 L (4.30-5.90) m/uL Hgb 11.8 L (13.0-17.5) gm/dL Hct 35.4 L (39.0-53.0) % Neutrophils # 9.4 H (1.3-7.7) k/uL Lymphocytes # 0.3 L (1.0-4.8) k/uL ABG pH (7.35-7.45) ABG pCO2 (35-45) mmHg ABG pO2 (83-108) mmHg ABG Total CO2 (19-24) mmol/L ABG O2 Saturation (94-97) % Sodium (137-145) mmol/L Glucose (74-99) mg/dL POC Glucose (mg/dL) 129 H 120 H (70-110) mg/dL Calcium (8.4-10.2) mg/dL AST (17-59) U/L ALT (4-49) U/L Total Protein (6.3-8.2) g/dL Crossmatch 05/10/23 05/10/23 05/10/23 Range/Units 19:02 19:53 20:57 RBC (4.30-5.90) m/uL Hgb (13.0-17.5) gm/dL Hct (39.0-53.0) % Neutrophils # (1.3-7.7) k/uL Lymphocytes # (1.0-4.8) k/uL ABG pH (7.35-7.45) ABG pCO2 (35-45) mmHg ABG pO2 (83-108) mmHg ABG Total CO2 (19-24) mmol/L ABG O2 Saturation (94-97) % Sodium (137-145) mmol/L Glucose (74-99) mg/dL POC Glucose (mg/dL) 118 H 120 H 122 H (70-110) mg/dL Calcium (8.4-10.2) mg/dL AST (17-59) U/L ALT (4-49) U/L Total Protein (6.3-8.2) g/dL Crossmatch 05/10/23 05/10/23 05/11/23 Range/Units 22:09 22:59 00:52 RBC (4.30-5.90) m/uL Hgb (13.0-17.5) gm/dL Hct (39.0-53.0) % Neutrophils # (1.3-7.7) k/uL Lymphocytes # (1.0-4.8) k/uL ABG pH (7.35-7.45) ABG pCO2 (35-45) mmHg ABG pO2 (83-108) mmHg ABG Total CO2 (19-24) mmol/L ABG O2 Saturation (94-97) % Sodium (137-145) mmol/L Glucose (74-99) mg/dL POC Glucose (mg/dL) 115 H 122 H 115 H (70-110) mg/dL Calcium (8.4-10.2) mg/dL AST (17-59) U/L ALT (4-49) U/L Total Protein (6.3-8.2) g/dL Crossmatch 05/11/23 05/11/23 05/11/23 Range/Units 03:09 04:41 04:41 RBC 3.88 L (4.30-5.90) m/uL Hgb 12.1 L (13.0-17.5) gm/dL Hct 37.2 L (39.0-53.0) % Neutrophils # (1.3-7.7) k/uL Lymphocytes # 0.8 L (1.0-4.8) k/uL ABG pH (7.35-7.45) ABG pCO2 (35-45) mmHg ABG pO2 (83-108) mmHg ABG Total CO2 (19-24) mmol/L ABG O2 Saturation (94-97) % Sodium 136 L (137-145) mmol/L Glucose 104 H (74-99) mg/dL POC Glucose (mg/dL) 126 H (70-110) mg/dL Calcium (8.4-10.2) mg/dL AST 61 H (17-59) U/L ALT (4-49) U/L Total Protein 5.9 L (6.3-8.2) g/dL Crossmatch 05/11/23 05/11/23 Range/Units 06:53 08:53 RBC (4.30-5.90) m/uL Hgb (13.0-17.5) gm/dL Hct (39.0-53.0) % Neutrophils # (1.3-7.7) k/uL Lymphocytes # (1.0-4.8) k/uL ABG pH (7.35-7.45) ABG pCO2 (35-45) mmHg ABG pO2 (83-108) mmHg ABG Total CO2 (19-24) mmol/L ABG O2 Saturation (94-97) % Sodium (137-145) mmol/L Glucose (74-99) mg/dL POC Glucose (mg/dL) 115 H 115 H (70-110) mg/dL Calcium (8.4-10.2) mg/dL AST (17-59) U/L ALT (4-49) U/L Total Protein (6.3-8.2) g/dL Crossmatch Assessment and Plan Assessment: Coronary artery bypass surgery and the patient underwent an off-pump bypass 2 with HILTON to LAD and radial to ramus intermedius. The patient is currently postop day #1. Postthoracotomy, remains intubated on a mechanical ventilator. Patient was extubated the patient is currently on room air oxygen. Upper from the chest tubes were notedairfit no significant air leak. No pneumothorax. Atelectatic changes are seen lungs bilaterally and the patient is using the senna spirometer. Coronary artery disease and the patient is status post Non-ST elevation myocardial infarction, patient is currently undergoing preoperative workup for a tentative CABG. the tentative surgical date is 05/10/2023, and an echocardiogram was done and the patient has an ejection fraction of 45-50%, normal RV, no significant valvular abnormalities. Multivessel coronary artery disease, as reported during heart catheterization Hyperlipidemia Mild intermittent bronchial asthma, not active Chronic marijuana smoker Obesity, with a BMI of 35.4 kg/m Plan: Aggressive use of incentive spirometer, currently on room air oxygen Continue aspirin and Plavix Continue metoprolol Continue statins Keep the chest tube placed for today Pain control We'll continue to follow
[2023-05-11] MEDS: LACTATED RINGERS 1,000 ML IV SCH (10:24)
[2023-05-11 11:46] LABS: Glucose,Whole Blood 124 mg/dL (70-110)
[2023-05-11] MEDS ORDERED: INSULIN ASPART (NovoLOG) 100 UNIT/ML VIAL SQ SCH (12:30)
--- NOTE | 2023-05-11 12:33 | P.PN ---
Subjective Progress Note Date: 05/11/23 Principal diagnosis: Coronary artery disease, non-STEMI this admission. Past medical history significant for hypertension, hyperlipidemia, asthma, lifelong nonsmoker of cigarettes, daily marijuana use, family history of early onset coronary artery disease. POD #1 off-pump coronary artery bypass grafting x2 with Left internal thoracic artery (in-situ) to left anterior descending artery. Left radial artery from aorta to ramus intermedius, endoscopic left radial artery harvest, left atrial appendage ligation with 35 mm Atriclip, graft flow measurements using the Medi- Stim flowmeter, intraoperative transesophageal echocardiogram performed by anesthesia. Postoperative acute blood loss anemia, expected given hemodilution and preoperative anemia. The patient was seen and examined in follow-up today 05/11/2023 his bedside in the intensive care unit. He is sitting up to the bedside chair, is awake, alert, oriented 3 and is in no acute apparent distress. He was successfully extubated at 4:58 PM last evening, oxygen saturation are currently 93% on room air and he is achieving 750 mL on his incentive spirometry with much encouragement. He denies any complaints of shortness of breath, although is complaining of some surgical type pain to his chest tube insertion sites with taking a deep breath. Currently rating his pain 5-6 out of 10 on the pain scale. Right IJ Cordis and [place]-Sebastian catheter remain in place with current hemodynamics showing a cardiac output of 7.2, cardiac index 3.6, PA pressures 32/18 and CVP 3 mmHg. Mediastinal, left, and right pleural chest tubes remain in place to low continuous wall suction -20 cm H2O. No air leak is present. Dr boin [place] serosanguineous drainage. Mediastinal chest tube drained 260 mL output in the last 8 hours and 450 mL output since surgery. Left/right pleural chest tubes drained 40 mL output in the last 8 hours and 300 mL output since surgery. Patient remained hemodynamically stable and is currently on no inotropic or pressor support. Chest x-ray and laboratory results reviewed. Objective - Vital Signs Vital signs: Vital Signs Temp 100.4 F H 05/11/23 08:00 Pulse 62 05/11/23 11:00 Resp 15 05/11/23 11:00 BP 112/71 05/11/23 11:00 Pulse Ox 92 L 05/11/23 11:00 FiO2 50 05/10/23 16:21 Intake & Output 05/10/23 05/11/23 05/11/23 18:59 06:59 18:59 Intake Total 852.101 5548.056 215 Output Total 1145 995 170 Balance -553.923 179.056 45 Weight 113.4 kg Intake: IV 528.25 902.5 215 CO/CI 112 140 Lactated Ringers 1,000 ml 300 650 200 @ 50 mls/hr IV .Q20H [facility]KHJINDER Rx#:[id number] Nitroglycerin-D5w Pmx 50 8.25 1.5 mg In Dextrose/Water 1 250ml.bag @ 5 MCG/MIN 1.5 mls/hr IV .Q24H [facility]KHJINDER Rx#: [id number] Pressure Bags 54 111 15 Intake, IV Titration 62.827 21.556 Amount Insulin Regular 100 unit 0.825 5.706 In Sodium Chloride 0.9% 100 ml @ Per Protocol IV .Q0M [facility]KHJINDER Rx#:[id number] Nitroglycerin-D5w Pmx 50 15.85 mg In Dextrose/Water 1 250ml.bag @ 5 MCG/MIN 1.5 mls/hr IV .Q24H [facility]KHJINDER Rx#: [id number] propofoL 1,000 mg In 62.002 Empty Bag 1 bag @ Titrate IV .Q0M SUKHJINDER Rx#: [id number] Oral 250 Output: Chest Tube Drainage 310 450 60 Chest Tube Left Pleural/ 229 70 30 Mediastinal Chest Tube Mediastinal 81 380 30 Drainage 30 Left 30 Urine 555 545 110 Estimated Blood Loss 250 Other: Voiding Method Indwelling Catheter Indwelling Catheter Indwelling Catheter ABP, PAP, CO, CI - Last Documented Arterial Blood Pressure 86/63 Pulmonary Artery Pressure 32/18 Cardiac Output 7.2 Cardiac Index 3.6 - Exam CONSTITUTIONAL: Sitting up to the bedside chair in the intensive care unit, ap pears comfortable, cooperative, no apparent acute distress. HEENT: Neck is supple, no JVD, no lymphadenopathy. Right IJ Cordis and [place]- Sebastian catheter in place and functioning. RESPIRATORY: Lungs sounds essentially clear throughout, diminished to his bilateral bases. Respirations are symmetrical and nonlabored. Currently on room air with oxygen saturations 93%. Able to achieve 750 mL on their incentive spirometry. Strong cough. CARDIOVASCULAR: Regular rhythm and rate. S1 and S2 present, negative for S3, gallop or murmur. Sternum is stable. Palpable peripheral pulses bilaterally, no edema to his bilateral lower extremities. No calf pain or tenderness noted. Heart hugger in place with patient demonstrating appropriate use. Knee-high MARIOLA hose and sequential compression devices in place to his bilateral lower extremities. GASTROINTESTINAL: Abdomen soft, nontender, nondistended. Hypoactive bowel sounds present 4 quadrants. Tolerating diet. Denies flatus. No guarding or rigidity. GENITOURINARY: Tee present draining clear, yellow urine. Urine output 310 mL in the last 8 hours INTEGUMENTARY: Skin is warm and dry with no evidence of clubbing or cyanosis. Midline sternal incision clean dry and well approximated, covered with dry intact dressing. Left arm radial artery harvest sites clean, dry and approximated. No drainage or redness is present. NEUROLOGIC: Cranial nerves II through XII intact. No focal deficits. MUSKULOSKELETAL: Able to move all extremities, strength equal bilaterally. PSYCHIATRIC: Alert and oriented to person place and time, appropriate affect, intact judgment and insight. INVASIVE LINES AND TUBES: Mediastinal/left/right pleural chest tubes present and connected to low continuous wall suction, no air leaks present. Mediastinal tube with 260 mL of thin serosanguineous drainage overnight, 450 mL output in the last 24 hours. Left/right pleural chest tubes with 40 mL of thin serosanguineous drainage overnight, 300 mL output in the last 24 hours. Right internal jugular [place]/Cordis, right radial arterial line present. Last CO 7.2, CI 3.6, PA 32/18 and CVP 3 mmHg. Left arm CANDIDA drain in place with scant thin serosanguineous drainage. - Allied health notes Allied health notes reviewed: nursing - Labs CBC & Chem 7: 05/11/23 04:41 05/11/23 04:41 Labs: Abnormal Lab Results - Last 24 Hours (Table) 05/09/23 05/10/23 05/10/23 Range/Units 06:53 12:48 12:48 RBC 3.90 L (4.30-5.90) m/uL Hgb 12.8 L (13.0-17.5) gm/dL Hct 37.8 L (39.0-53.0) % Neutrophils # (1.3-7.7) k/uL Lymphocytes # 0.9 L (1.0-4.8) k/uL ABG pH (7.35-7.45) ABG pCO2 (35-45) mmHg ABG pO2 (83-108) mmHg ABG Total CO2 (19-24) mmol/L ABG O2 Saturation (94-97) % Sodium (137-145) mmol/L Glucose (74-99) mg/dL POC Glucose (mg/dL) (70-110) mg/dL Calcium 8.2 L (8.4-10.2) mg/dL AST 68 H (17-59) U/L ALT 50 H (4-49) U/L Total Protein 5.9 L (6.3-8.2) g/dL Crossmatch See Detail 05/10/23 05/10/23 05/10/23 Range/Units 13:25 15:35 16:50 RBC 3.62 L (4.30-5.90) m/uL Hgb 11.8 L (13.0-17.5) gm/dL Hct 34.3 L (39.0-53.0) % Neutrophils # (1.3-7.7) k/uL Lymphocytes # 0.4 L (1.0-4.8) k/uL ABG pH 7.31 L 7.34 L (7.35-7.45) ABG pCO2 51 H (35-45) mmHg ABG pO2 145 H (83-108) mmHg ABG Total CO2 27 H 25 H (19-24) mmol/L ABG O2 Saturation 98.4 H 97.8 H (94-97) % Sodium (137-145) mmol/L Glucose (74-99) mg/dL POC Glucose (mg/dL) (70-110) mg/dL Calcium (8.4-10.2) mg/dL AST (17-59) U/L ALT (4-49) U/L Total Protein (6.3-8.2) g/dL Crossmatch 05/10/23 05/10/23 05/10/23 Range/Units 17:13 18:02 18:35 RBC 3.74 L (4.30-5.90) m/uL Hgb 11.8 L (13.0-17.5) gm/dL Hct 35.4 L (39.0-53.0) % Neutrophils # 9.4 H (1.3-7.7) k/uL Lymphocytes # 0.3 L (1.0-4.8) k/uL ABG pH (7.35-7.45) ABG pCO2 (35-45) mmHg ABG pO2 (83-108) mmHg ABG Total CO2 (19-24) mmol/L ABG O2 Saturation (94-97) % Sodium (137-145) mmol/L Glucose (74-99) mg/dL POC Glucose (mg/dL) 129 H 120 H (70-110) mg/dL Calcium (8.4-10.2) mg/dL AST (17-59) U/L ALT (4-49) U/L Total Protein (6.3-8.2) g/dL Crossmatch 05/10/23 05/10/23 05/10/23 Range/Units 19:02 19:53 20:57 RBC (4.30-5.90) m/uL Hgb (13.0-17.5) gm/dL Hct (39.0-53.0) % Neutrophils # (1.3-7.7) k/uL Lymphocytes # (1.0-4.8) k/uL ABG pH (7.35-7.45) ABG pCO2 (35-45) mmHg ABG pO2 (83-108) mmHg ABG Total CO2 (19-24) mmol/L ABG O2 Saturation (94-97) % Sodium (137-145) mmol/L Glucose (74-99) mg/dL POC Glucose (mg/dL) 118 H 120 H 122 H (70-110) mg/dL Calcium (8.4-10.2) mg/dL AST (17-59) U/L ALT (4-49) U/L Total Protein (6.3-8.2) g/dL Crossmatch 05/10/23 05/10/23 05/11/23 Range/Units 22:09 22:59 00:52 RBC (4.30-5.90) m/uL Hgb (13.0-17.5) gm/dL Hct (39.0-53.0) % Neutrophils # (1.3-7.7) k/uL Lymphocytes # (1.0-4.8) k/uL ABG pH (7.35-7.45) ABG pCO2 (35-45) mmHg ABG pO2 (83-108) mmHg ABG Total CO2 (19-24) mmol/L ABG O2 Saturation (94-97) % Sodium (137-145) mmol/L Glucose (74-99) mg/dL POC Glucose (mg/dL) 115 H 122 H 115 H (70-110) mg/dL Calcium (8.4-10.2) mg/dL AST (17-59) U/L ALT (4-49) U/L Total Protein (6.3-8.2) g/dL Crossmatch 05/11/23 05/11/23 05/11/23 Range/Units 03:09 04:41 04:41 RBC 3.88 L (4.30-5.90) m/uL Hgb 12.1 L (13.0-17.5) gm/dL Hct 37.2 L (39.0-53.0) % Neutrophils # (1.3-7.7) k/uL Lymphocytes # 0.8 L (1.0-4.8) k/uL ABG pH (7.35-7.45) ABG pCO2 (35-45) mmHg ABG pO2 (83-108) mmHg ABG Total CO2 (19-24) mmol/L ABG O2 Saturation (94-97) % Sodium 136 L (137-145) mmol/L Glucose 104 H (74-99) mg/dL POC Glucose (mg/dL) 126 H (70-110) mg/dL Calcium (8.4-10.2) mg/dL AST 61 H (17-59) U/L ALT (4-49) U/L Total Protein 5.9 L (6.3-8.2) g/dL Crossmatch 05/11/23 05/11/23 Range/Units 06:53 08:53 RBC (4.30-5.90) m/uL Hgb (13.0-17.5) gm/dL Hct (39.0-53.0) % Neutrophils # (1.3-7.7) k/uL Lymphocytes # (1.0-4.8) k/uL ABG pH (7.35-7.45) ABG pCO2 (35-45) mmHg ABG pO2 (83-108) mmHg ABG Total CO2 (19-24) mmol/L ABG O2 Saturation (94-97) % Sodium (137-145) mmol/L Glucose (74-99) mg/dL POC Glucose (mg/dL) 115 H 115 H (70-110) mg/dL Calcium (8.4-10.2) mg/dL AST (17-59) U/L ALT (4-49) U/L Total Protein (6.3-8.2) g/dL Crossmatch - Imaging and Cardiology Chest x-ray: report reviewed, image reviewed Assessment and Plan Assessment: Coronary artery disease, non-STEMI this admission, status post 2 vessel coronary artery bypass grafting surgery Chest pain on admission, secondary to above Hypertension Hyperlipidemia, cholesterol 242, LDL 170 Asthma Lifelong nonsmoker (cigarettes), preoperative FEV1 72% of predicted Daily marijuana use Family history of premature coronary artery disease Postoperative acute blood loss anemia, expected Plan: Continue to maximize medical management with aspirin, statin, Plavix and beta aminata. Will increase beta aminata therapy as tolerated. Lipitor increased to 80 mg by mouth daily by Dr. Asencio. Discontinue IV nitro. Encourage incentive spirometry 10 times every hour while awake. Bronchodilators per pulmonology. Will monitor daily labs and chest x-rays. Electrolyte replacement per protocol Increase activity as tolerated. PT/OT/cardiac rehab consulted. GI/DVT prophylaxis. Pain control with current medication regimen. Toradol added. Insulin management per internal medicine. Patient to remain on insulin drip for 48 hours, then transition. Preoperative hemoglobin A1c 5.6%. Discontinue [place]. Connect Cordis to continue CVP monitoring. We will keep his mediastinal/left/right pleural chest tubes for another 24 hours, monitor output. Continue Tee catheter as his chronic for patient, continue to record strict accurate intake and output. Daily weights. More recommendations to follow based on patient's clinical course. Time with Patient: Greater than 30
--- NOTE | 2023-05-11 12:35 | P.PN ---
Subjective Progress Note Date: 05/11/23 47-year-old gentleman with past medical history significant for hypertension, hyperlipidemia and the ER because of chest pain that started last night. Patient stated he was all right last night when he started noticing central chest pain which was severe in intensity, nonradiating, associated with shortn ess of breath. Patient was complaining of nausea that time. No complain of diaphoresis. No aggravating or relieving factors associated with chest pain. Denied any palpitation. Denied any fever or chills. Because of chest pain, patient came to ER. Initial lab work done in the ER showed WBC 6.3, hemoglobin 13.7, platelet count 320, d-dimer 0.34 sodium 1:30, potassium 4, BUN 13, creatinine 1.14, troponin 0.257 EKG done in the ER heart rate 49, slight ST elevation noticeable in leads 1 and aVL, no reciprocal changes or T-wave inversion seen. Chest x-ray done in the ER showed no active disease Patient was started on heparin, ER physician discussed the case with on-call cardiology and EKGs, they recommended starting heparin and admission to medicine service 05/07. Patient seen and examined. Cardiac catheterization done on 05/06 showed Severe and diffuse disease involving the left anterior descending artery with disease in the proximal and mid and mid to distal portion, Chronic total occlusion of the left circumflex, Intermediate disease involving the right coronary artery. 05/08. Patient seen and examined. Denies any episodes of chest pain. Denies any shortness of breath on exertion. Vital signs stable 05/09/2023 Patient is currently lying in the bed. Awake alert and oriented x3. No complaints of chest pain or shortness of breath. No headache or dizziness or lightheadedness. Hemodynamically stable. Patient is scheduled for coronary artery bypass graft tomorrow. Laboratory data showed WBC 7.9 hemoglobin 12.5 and platelets 283 Sodium 138 potassium 4.3 chloride 104 bicarb is 28 BUN 16 and creatinine 1.02. Liver enzymes not elevated. 05/10/2023 Patient is postoperative day 0 Status post coronary artery bypass graft x2 left internal thoracic artery to left anterior descending artery. Left radial artery from aorta to ramus intermedius. Left atrial appendage ligation. Patient was transferred to MICU postoperatively. Patient does have mediastinal chest tubes and left lung chest tube in place. Currently patient is on mechanical ventilator and is also sedated with propofol. On assist control. Chest x-ray showed postoperative changes of CABG Laboratory data showed WBC 6.3 hemoglobin 12.8 and platelets 234 BUN 15 and creatinine 0.85 blood sugar is 94. AST 64 and ALT 15 alk phos 44. 05/11/2023 patient is postoperative day one, seen by cardiac surgery team, chest tube in place. Postprocedure blood work reviewed including CBC which showed hemoglobin of 12.1, white blood cell count of 8.7. Serum chemistry shows sodium 136, creatinine 0.80 blood glucose 124. Patient denies off any difficulty in breathing, does have chest discomfort from surgical site incision Objective - Vital Signs Vital signs: Vital Signs Temp 100.4 F H 05/11/23 08:00 Pulse 62 05/11/23 11:00 Resp 15 05/11/23 11:00 BP 112/71 05/11/23 11:00 Pulse Ox 92 L 05/11/23 11:00 FiO2 50 05/10/23 16:21 Intake & Output 05/10/23 05/11/23 05/11/23 18:59 06:59 18:59 Intake Total 791.245 5520.056 215 Output Total 1145 995 170 Balance -553.923 179.056 45 Weight 113.4 kg Intake: IV 528.25 902.5 215 CO/CI 112 140 Lactated Ringers 1,000 ml 300 650 200 @ 50 mls/hr IV .Q20H [facility] Rx#:[id number] Nitroglycerin-D5w Pmx 50 8.25 1.5 mg In Dextrose/Water 1 250ml.bag @ 5 MCG/MIN 1.5 mls/hr IV .Q24H [facility] Rx#: [id number] Pressure Bags 54 111 15 Intake, IV Titration 62.827 21.556 Amount Insulin Regular 100 unit 0.825 5.706 In Sodium Chloride 0.9% 100 ml @ Per Protocol IV .Q0M [facility] Rx#:[id number] Nitroglycerin-D5w Pmx 50 15.85 mg In Dextrose/Water 1 250ml.bag @ 5 MCG/MIN 1.5 mls/hr IV .Q24H [facility] Rx#: [id number] propofoL 1,000 mg In 62.002 Empty Bag 1 bag @ Titrate IV .Q0M [facility] Rx#: [id number] Oral 250 Output: Chest Tube Drainage 310 450 60 Chest Tube Left Pleural/ 229 70 30 Mediastinal Chest Tube Mediastinal 81 380 30 Drainage 30 Left 30 Urine 555 545 110 Estimated Blood Loss 250 Other: Voiding Method Indwelling Catheter Indwelling Catheter Indwelling Catheter ABP, PAP, CO, CI - Last Documented Arterial Blood Pressure 86/63 Pulmonary Artery Pressure 32/18 Cardiac Output 7.2 Cardiac Index 3.6 - Exam PHYSICAL EXAMINATION: GENERAL: The patient is alert and oriented x3, not in any acute distress. Well developed, well nourished. HEENT: Pupils are round and equally reacting to light. EOMI. No scleral icterus. No conjunctival pallor. Normocephalic, atraumatic. No pharyngeal erythema. No thyromegaly. CARDIOVASCULAR: S1 and S2 present. Lower extremity edema, chest brace in place PULMONARY: Chest tube in place, no respiratory distress ABDOMEN: Soft, nontender, nondistended, normoactive bowel sounds. No palpable organomegaly. MUSCULOSKELETAL: No joint swelling or deformity. EXTREMITIES: No cyanosis, clubbing, or pedal edema. NEUROLOGICAL: Gross neurological examination did not reveal any focal deficits. - Labs CBC & Chem 7: 05/11/23 04:41 05/11/23 04:41 Labs: Abnormal Lab Results - Last 24 Hours (Table) 05/09/23 05/10/23 05/10/23 Range/Units 06:53 12:48 12:48 RBC 3.90 L (4.30-5.90) m/uL Hgb 12.8 L (13.0-17.5) gm/dL Hct 37.8 L (39.0-53.0) % Neutrophils # (1.3-7.7) k/uL Lymphocytes # 0.9 L (1.0-4.8) k/uL ABG pH (7.35-7.45) ABG pCO2 (35-45) mmHg ABG pO2 (83-108) mmHg ABG Total CO2 (19-24) mmol/L ABG O2 Saturation (94-97) % Sodium (137-145) mmol/L Glucose (74-99) mg/dL POC Glucose (mg/dL) (70-110) mg/dL Calcium 8.2 L (8.4-10.2) mg/dL AST 68 H (17-59) U/L ALT 50 H (4-49) U/L Total Protein 5.9 L (6.3-8.2) g/dL Crossmatch See Detail 05/10/23 05/10/23 05/10/23 Range/Units 13:25 15:35 16:50 RBC 3.62 L (4.30-5.90) m/uL Hgb 11.8 L (13.0-17.5) gm/dL Hct 34.3 L (39.0-53.0) % Neutrophils # (1.3-7.7) k/uL Lymphocytes # 0.4 L (1.0-4.8) k/uL ABG pH 7.31 L 7.34 L (7.35-7.45) ABG pCO2 51 H (35-45) mmHg ABG pO2 145 H (83-108) mmHg ABG Total CO2 27 H 25 H (19-24) mmol/L ABG O2 Saturation 98.4 H 97.8 H (94-97) % Sodium (137-145) mmol/L Glucose (74-99) mg/dL POC Glucose (mg/dL) (70-110) mg/dL Calcium (8.4-10.2) mg/dL AST (17-59) U/L ALT (4-49) U/L Total Protein (6.3-8.2) g/dL Crossmatch 05/10/23 05/10/23 05/10/23 Range/Units 17:13 18:02 18:35 RBC 3.74 L (4.30-5.90) m/uL Hgb 11.8 L (13.0-17.5) gm/dL Hct 35.4 L (39.0-53.0) % Neutrophils # 9.4 H (1.3-7.7) k/uL Lymphocytes # 0.3 L (1.0-4.8) k/uL ABG pH (7.35-7.45) ABG pCO2 (35-45) mmHg ABG pO2 (83-108) mmHg ABG Total CO2 (19-24) mmol/L ABG O2 Saturation (94-97) % Sodium (137-145) mmol/L Glucose (74-99) mg/dL POC Glucose (mg/dL) 129 H 120 H (70-110) mg/dL Calcium (8.4-10.2) mg/dL AST (17-59) U/L ALT (4-49) U/L Total Protein (6.3-8.2) g/dL Crossmatch 05/10/23 05/10/23 05/10/23 Range/Units 19:02 19:53 20:57 RBC (4.30-5.90) m/uL Hgb (13.0-17.5) gm/dL Hct (39.0-53.0) % Neutrophils # (1.3-7.7) k/uL Lymphocytes # (1.0-4.8) k/uL ABG pH (7.35-7.45) ABG pCO2 (35-45) mmHg ABG pO2 (83-108) mmHg ABG Total CO2 (19-24) mmol/L ABG O2 Saturation (94-97) % Sodium (137-145) mmol/L Glucose (74-99) mg/dL POC Glucose (mg/dL) 118 H 120 H 122 H (70-110) mg/dL Calcium (8.4-10.2) mg/dL AST (17-59) U/L ALT (4-49) U/L Total Protein (6.3-8.2) g/dL Crossmatch 05/10/23 05/10/23 05/11/23 Range/Units 22:09 22:59 00:52 RBC (4.30-5.90) m/uL Hgb (13.0-17.5) gm/dL Hct (39.0-53.0) % Neutrophils # (1.3-7.7) k/uL Lymphocytes # (1.0-4.8) k/uL ABG pH (7.35-7.45) ABG pCO2 (35-45) mmHg ABG pO2 (83-108) mmHg ABG Total CO2 (19-24) mmol/L ABG O2 Saturation (94-97) % Sodium (137-145) mmol/L Glucose (74-99) mg/dL POC Glucose (mg/dL) 115 H 122 H 115 H (70-110) mg/dL Calcium (8.4-10.2) mg/dL AST (17-59) U/L ALT (4-49) U/L Total Protein (6.3-8.2) g/dL Crossmatch 05/11/23 05/11/23 05/11/23 Range/Units 03:09 04:41 04:41 RBC 3.88 L (4.30-5.90) m/uL Hgb 12.1 L (13.0-17.5) gm/dL Hct 37.2 L (39.0-53.0) % Neutrophils # (1.3-7.7) k/uL Lymphocytes # 0.8 L (1.0-4.8) k/uL ABG pH (7.35-7.45) ABG pCO2 (35-45) mmHg ABG pO2 (83-108) mmHg ABG Total CO2 (19-24) mmol/L ABG O2 Saturation (94-97) % Sodium 136 L (137-145) mmol/L Glucose 104 H (74-99) mg/dL POC Glucose (mg/dL) 126 H (70-110) mg/dL Calcium (8.4-10.2) mg/dL AST 61 H (17-59) U/L ALT (4-49) U/L Total Protein 5.9 L (6.3-8.2) g/dL Crossmatch 05/11/23 05/11/23 05/11/23 Range/Units 06:53 08:53 11:44 RBC (4.30-5.90) m/uL Hgb (13.0-17.5) gm/dL Hct (39.0-53.0) % Neutrophils # (1.3-7.7) k/uL Lymphocytes # (1.0-4.8) k/uL ABG pH (7.35-7.45) ABG pCO2 (35-45) mmHg ABG pO2 (83-108) mmHg ABG Total CO2 (19-24) mmol/L ABG O2 Saturation (94-97) % Sodium (137-145) mmol/L Glucose (74-99) mg/dL POC Glucose (mg/dL) 115 H 115 H 124 H (70-110) mg/dL Calcium (8.4-10.2) mg/dL AST (17-59) U/L ALT (4-49) U/L Total Protein (6.3-8.2) g/dL Crossmatch Assessment and Plan Assessment: Assessment and plan Status post coronary artery bypass graft x2 with HILTON to LAD and radial to ramus intermedius. Postoperative day 1. Non-ST elevation myocardial infarction Multivessel coronary artery disease Hyperlipidemia Mild intermittent bronchial asthma, not active Chronic marijuana smoker Obesity, with a BMI of 35.4 kg/m Patient is currently in MICU. Extubated, weaned off ventilator Monitor vital signs Monitor CBC Monitor CMP Continue telemetry monitoring Cardiac surgery, Cardiology and pulmonary is on board. Labs and medication were reviewed.
[2023-05-11] MEDS: INSULIN ASPART (NovoLOG) 100 UNIT/ML VIAL SQ SCH ×3 (12:45→20:37)
[2023-05-11 13:29] VITALS: BMI 36.9
[2023-05-11 16:54] LABS: Glucose,Whole Blood 109 mg/dL (70-110)
[2023-05-11] MEDS: SENNOSIDES-DOCUSATE SODIUM 1 EACH TAB PO SCH (20:21)
[2023-05-11 20:32] LABS: Glucose,Whole Blood 116 mg/dL (70-110)
[2023-05-12] MEDS: HYDROcodone/APAP 10-325MG 1 EACH TAB PO PRN ×2 (04:20→08:18)
[2023-05-12 06:01] LABS: Ionized Calcium 4.8 mg/dL (4.5-5.3)
[2023-05-12 06:11] LABS: ALT 34 U/L (4-49); AST 45 U/L (17-59); African American GFR (CKD) >90 (>60 ml/min/1.73 sqM); Albumin 3.4 g/dL (3.5-5.0); Alkaline Phosphatase 48 U/L (38-126); Anion Gap 6 mmol/L; Blood Urea Nitrogen 14 mg/dL (9-20); Calcium 8.7 mg/dL (8.4-10.2); Carbon Dioxide 25 mmol/L (22-30); Chloride 104 mmol/L (98-107); Glucose 105 mg/dL (74-99); Non-African American GFR(CKD) >90 (>60 ml/min/1.73 sqM); Potassium 4.3 mmol/L (3.5-5.1); Sodium 135 mmol/L (137-145); Total Bilirubin 0.8 mg/dL (0.2-1.3); Total Protein 5.9 g/dL (6.3-8.2)
[2023-05-12] MEDS: KETOROLAC 15 MG/ML 1 ML VIAL IVP SCH ×4 (06:13→23:30)
[2023-05-12 06:15] LABS: Basophils % (A) 0 %; Eosinophils % (A) 1 %; HGB 14.3 gm/dL (13.0-17.5); Lymphocytes # (A) 0.7 k/uL (1.0-4.8); Lymphocytes % (A) 9 %; MCH 31.7 pg (25.0-35.0); MCHC 32.5 g/dL (31.0-37.0); MCV 97.5 fL (80.0-100.0); Mean Platelet Volume 7.7; Monocytes # (A) 0.7 k/uL (0-1.0); Monocytes % (A) 9 %; Neutrophils # (A) 6.5 k/uL (1.3-7.7); Neutrophils % (A) 81 %; Platelet Count 176 k/uL (150-450); RBC 4.51 m/uL (4.30-5.90); RDW 13.1 % (11.5-15.5)
[2023-05-12] MEDS: INSULIN ASPART (NovoLOG) 100 UNIT/ML VIAL SQ SCH ×4 (06:27→23:25)
[2023-05-12] MEDS ORDERED: ACETAMINOPHEN TAB 325 MG TAB PO PRN (06:30)
[2023-05-12] MEDS: ATORVASTATIN 80 MG TAB PO SCH (08:18)
[2023-05-12] MEDS: CLOPIDOGREL 75 MG TAB PO SCH (08:18)
[2023-05-12] MEDS: PANTOPRAZOLE 40 MG TABLET PO SCH (08:18)
--- NOTE | 2023-05-12 08:18 | P.PN ---
Subjective Progress Note Date: 05/12/23 Principal diagnosis: Coronary artery disease, non-STEMI this admission. History of hypertension, hyperlipidemia, asthma, lifelong nonsmoker of cigarettes, daily marijuana use, family history of CAD, premature CAD POD #2 off-pump coronary artery bypass graft 2 with left internal thoracic artery (in situ) to the left anterior descending artery, left radial artery from the aorta to the ramus intermedius, endoscopic left radial artery harvest, left atrial appendage ligation with 35 mm AtriClip, graft flow measurements using the Medistim flowmeter, intraoperative transesophageal echocardiogram performed by anesthesia The patient was seen and examined this morning sitting up in a recliner in the intensive care unit in no acute distress. States pain is controlled on current medication regimen, denies shortness of breath. Remains in sinus rhythm, hemodynamically stable on no inotropes or pressors. Chest x-ray, labs reviewed. Right internal jugular Cordis, mediastinal/right pleural chest tubes remain. Patient has been ambulatory without difficulty. No other new concerns. Objective - Vital Signs Vital signs: Vital Signs Temp 98.0 F 05/12/23 04:00 Pulse 74 05/12/23 07:00 Resp 16 05/12/23 07:00 BP 114/86 05/12/23 07:00 Pulse Ox 90 L 05/12/23 07:00 FiO2 50 05/10/23 16:21 Intake & Output 05/11/23 05/12/23 05/12/23 18:59 06:59 18:59 Intake Total 566 429 Output Total 635 1055 Balance -69 -626 Weight 113.4 kg 112.3 kg Intake: IV 566 429 Lactated Ringers 1,000 ml 530 390 @ 20 mls/hr IV .Q24H [facility] Rx#:[id number] Pressure Bags 36 39 Output: Chest Tube Drainage 150 240 Chest Tube Left Pleural/ 70 100 Mediastinal Chest Tube Mediastinal 80 140 Urine 485 815 Other: Voiding Method Indwelling Catheter Indwelling Catheter ABP, PAP, CO, CI - Last Documented Arterial Blood Pressure 86/63 Pulmonary Artery Pressure 32/18 Cardiac Output 7.2 Cardiac Index 3.6 - Exam CONSTITUTIONAL: Appears comfortable, cooperative, no acute distress RESPIRATORY: Lungs sounds diminished bilaterally. Respirations even, nonlabored. Currently on room air with oxygen saturation 91%. Able to achieve 1500 mL on incentive spirometry. Strong nonproductive cough. CARDIOVASCULAR: S1, S2 present. Regular rate and rhythm, sinus rhythm on telemetry. Sternum stable. Palpable peripheral pulses bilaterally. No edema present. No calf pain or tenderness noted. Heart hugger in place with patient demonstrating appropriate use. Antiembolism stockings, SCDs present. GASTROINTESTINAL: Abdomen soft, nontender, nondistended. Active bowel sounds present 4 quadrants. Tolerating diet GENITOURINARY: Tee present draining clear, yellow urine. Output overnight 50-80 mL per hour, 1240 mL in the last 24 hours INTEGUMENTARY: Skin is warm and dry with evidence of good perfusion. Anterior chest incision well approximated and covered with dry intact dressing. Left radial artery harvest site site well approximated without redness or drainage. NEUROLOGIC: Cranial nerves II through XII intact MUSKULOSKELETAL: Able to move all extremities, strength equal bilaterally, gait normal PSYCHIATRIC: Alert and oriented to person place and time, appropriate affect, intact judgment and insight INVASIVE LINES AND TUBES: Mediastinal/right pleural chest tubes present and connected to wall suction, no air leaks present. Mediastinal tube with 110 mL serosanguineous drainage overnight, 200 mL in the last 24 hours. Mediastinal/right pleural chest tubes with 30 mL serosanguineous drainage overnight, 200 mL last 24 hours. V epicardial pacemaker wires present, connected to generator, backup rate 40 bpm. Right internal jugular cordis present. Last CVP 5. - Allied health notes Allied health notes reviewed: nursing - Labs CBC & Chem 7: 05/12/23 05:01 05/12/23 05:01 Labs: Abnormal Lab Results - Last 24 Hours (Table) 05/11/23 05/11/23 05/11/23 Range/Units 08:53 11:44 20:30 Lymphocytes # (1.0-4.8) k/uL Sodium (137-145) mmol/L Glucose (74-99) mg/dL POC Glucose (mg/dL) 115 H 124 H 116 H (70-110) mg/dL Total Protein (6.3-8.2) g/dL Albumin (3.5-5.0) g/dL 05/12/23 05/12/23 Range/Units 05:01 05:01 Lymphocytes # 0.7 L (1.0-4.8) k/uL Sodium 135 L (137-145) mmol/L Glucose 105 H (74-99) mg/dL POC Glucose (mg/dL) (70-110) mg/dL Total Protein 5.9 L (6.3-8.2) g/dL Albumin 3.4 L (3.5-5.0) g/dL - Imaging and Cardiology Chest x-ray: image reviewed Assessment and Plan Assessment: Coronary artery disease, non-STEMI this admission, status post 2 vessel CABG Chest pain, secondary to above Hypertension Hyperlipidemia, cholesterol 242, LDL 170 Asthma Lifelong nonsmoker (cigarettes), preoperative FEV1 72% of predicted Daily marijuana use Family history of CAD, premature CAD Plan: Continue to maximize medical therapy with aspirin, statin, Plavix, beta aminata. Will increase beta aminata as tolerated Continue calcium channel aminata for radial artery spasm prophylaxis Encourage incentive spirometry use, bronchodilators per pulmonology Increase activity, ambulate as tolerated. PT/OT/cardiac rehab consulted We will monitor daily labs and x-rays. Electrolyte replacement per protocol GI/DVT prophylaxis Pain control per current medication regimen Insulin management per internal medicine. Patient is not diabetic, preoperative hemoglobin A1c 5.6% Continue to reinforce preoperative teaching Discontinue Cordis Will discontinue chest tubes Discontinue Tee catheter. May bladder scan and straight cath for greater than 300 mL Ground epicardial pacemaker wire We will place transfer orders for 3 S. cardiac stepdown unit. May transfer when bed available More recommendations to follow
[2023-05-12] MEDS: ASPIRIN 325 MG TAB PO SCH (08:19)
[2023-05-12] MEDS: HEPARIN SODIUM,PORCINE 5,000 UNIT/ML 1 ML VIAL SQ SCH ×3 (08:19→23:31)
[2023-05-12] MEDS: METOPROLOL TARTRATE 25 MG TAB PO SCH ×2 (08:27→20:43)
[2023-05-12] MEDS: LACTATED RINGERS 1,000 ML IV SCH (08:40)
[2023-05-12] MEDS ORDERED: amLODIPine 2.5 MG TAB PO SCH (09:00)
[2023-05-12] MEDS: IPRATROPIUM-ALBUTEROL 3 ML NEB INHALATION SCH ×4 (09:35→20:25)
--- NOTE | 2023-05-12 10:15 | P.PN ---
Subjective Progress Note Date: 05/12/23 I am seeing this patient in new consultation today 05/07/2023 on the cardiac stepdown unit for a preoperative pulmonary evaluation for a tentative CABG. Patient is a 47-year-old white male past medical history significant for mild intermittent asthma, hyperlipidemia, and hypertension. Denies any premature history of heart disease. Patient presented to the emergency room after developing substernal chest pressure which radiated up his neck that started at 11 PM on May 05, he presented to the hospital early the next morning. Patient was also experiencing some nausea and shortness of breath at that time. He did have a heart catheterization yesterday afternoon, and was found to have multivessel coronary artery disease. No PCI was performed. There was severe diffuse disease involving the left anterior descending artery, chronic total occlusion of the left circumflex, and moderate disease of the RCA. Cardiothoracic surgery was consulted for possible open-heart surgery. Patient is currently sitting up in bed, on room air, in no acute distress. He denies any current chest pain. He is on heparin infusion per protocol. Patient's pulmonary status seems to be stable. He does admit history of mild intermittent asthma In which he controls with when necessary albuterol. He states that he almost never needs to use his inhaler. Denies ever being a tobacco smoker, however, he does smoke marijuana daily. Bedside spirometry shows an FEV1 of 2.74 L or 72% of predicted. ECG on arrival showed sinus bradycardia with no significant ST elevation. There was less than 1 mm of elevation in lead 1. Troponins were elevated and are trending up at 0.257, 0.27, and 1.14 respectively. CBC on arrival was unremarkable. D-dimer not elevated. CMP unremarkable. Hemodynamically the patient seems stable. On today's evaluation of 05/08/2023, the patient has no specific complaints. History of any chest pain. He is having some sinus bradycardia, asymptomatic and is hemodynamically stable. No chest pain. No other complaints otherwise for now. The plan is to proceed with surgery on 05/10/2023. on today's evaluation of 05/09/2023, the patient's by mouth any chest pain. Hemodynamically stable. No complaints. The plan is to proceed with surgery tomorrow. Hemoglobin was at 12.5, BUN is at 60 with a creatinine of 1.02 and a sodium level is at 138. The patient has no other complaints otherwise for now. Ready to undergo his cardiac surgery tomorrow. On 05/10/2023, the patient is post bypass surgery and the patient was evaluated immediately after arrival to the intensive care unit. The patient underwent off pump coronary artery bypass surgery 2 with HILTON to LAD and left radial to ramus intermedius. At this point in time, the patient sedated on a mechanical ventilator. The patient is currently off propofol running at 40 mcg/kg/m and the patient is adequately sedated. The patient is a mechanical ventilator assist control mode at a rate of 12, tidal volume of 400, 5-100% with a PEEP of 5. The patient's blood gases showed a pH of 7.31 with episodes of 51 and pO2 of 145. Based on that, the respiratory rate was brought up to 24 and FiO2 was up to 80%. The patient has 2 mediastinal chest tubes and total amount of output has been 100 mL and there is also trace output from the left lower chest tube. Chest x-ray shows adequate expansion of both lungs. The patient has [place]-Sebastian catheter in place. ET tube is in a good location. Cardiac output is at 6.6 w ith an index of 3.3. The pulmonary artery pressure is 31/20. BP is 102/55 the patient is being given volume to support the blood pressure. Urine output is adequate. The patient's cardiac rhythm is sinus and the patient is relatively bradycardic with a heart rate ranging between 55 and 65 bpm. Hemoglobin is 11.8 and the echoes at 8 with a platelet count of 261. The rest of the electrolytes are normal. BUN is a 50 with a creatinine of 0.8. Meanwhile, the patient is on nitroglycerin drip running at 5 mcg/m. 05/21/2023, the patient is doing extremely well. He was [facility], extubated without any major difficulties and currently is on room air oxygen. He did have some atelectatic changes in his upper lobes bilaterally and the lung volumes are relatively smaller on today's evaluation. The patient has mediastinum and left pleural chest tube. Output from the mediastinal is in order of 4 50 mL since surgery and to 60 over the past 8 hours, left lower chest tube output has been 300 since surgery and 40 over the past 8 hours. Long as catheter has been removed. Cardiac outputs prior to his [place] removal was 7.2 with an index of 3.6. PA pressures were 32/18. Cardiac rhythm is sinus. Hemodynamically stable. Nitroglycerin drip has been disconti nued. He was having some soreness in his chest and he was given fentanyl for pain control. Hemoglobin currently is at 12.1 and a platelet count of 223. The white cell count of 8.7. The sodium is at 136 with a BUN of 18 and a creatinine of 0.8. No focal neurological deficits. Patient is doing well for now. He is currently postop day #1. On today's evaluation of 05/12/2023, no complaints. Patient is postop day #2. He is doing extremely well. Cardiac rhythm is sinus. Hemodynamically stable. Chest tubes are still in place. CVP is at 5. Output from the chest tube was monitored and the patient has produced approximately 200 mL from the mediastinal chest tube over the past 24 hours and 200 mL from the mediastinal/right lower chest tube. No evidence of any air leak. Chest x-ray shows adequate expansion. No evidence of any pneumothorax or pleural effusion. Hemoglobin is at 14.3, BUN is at 40 with a creatinine of 0.7. Ambulating. Using the incentive spirometer. Pulling approximately 1500. No issues otherwise. Objective - Vital Signs Vital signs: Vital Signs Temp 98.3 F 05/12/23 08:00 Pulse 68 05/12/23 09:45 Resp 16 05/12/23 09:45 BP 115/80 05/12/23 09:00 Pulse Ox 95 05/12/23 09:35 FiO2 50 05/10/23 16:21 Intake & Output 05/11/23 05/12/23 05/12/23 18:59 06:59 18:59 Intake Total 566 429 66 Output Total 635 1055 210 Balance -69 -626 -144 Weight 113.4 kg 112.3 kg Intake: IV 566 429 66 Lactated Ringers 1,000 ml 530 390 60 @ 20 mls/hr IV .Q24H [facility] Rx#:[id number] Pressure Bags 36 39 6 Output: Chest Tube Drainage 150 240 60 Chest Tube Left Pleural/ 70 100 40 Mediastinal Chest Tube Mediastinal 80 140 20 Urine 485 815 150 Other: Voiding Method Indwelling Catheter Indwelling Catheter Indwelling Catheter ABP, PAP, CO, CI - Last Documented Arterial Blood Pressure 86/63 Pulmonary Artery Pressure 32/18 Cardiac Output 7.2 Cardiac Index 3.6 - Exam GENERAL EXAM: Alert, 47-year-old obese white male , currentlyon room air oxygen, awake and alert EYES: Normal reaction of pupils, equal size. NOSE: Clear with pink turbinates. THROAT: No erythema or exudates. NECK: No masses, no JVD. CHEST: No chest wall deformity. LUNGS: Equal air entry with no crackles, wheeze, rhonchi or dullness. The patient has a thoracotomy scar. The patient also has mediastinal and left chest tube CVS: S1 and S2 normal with no audible murmur, regular rhythm. No extra heart sounds ABDOMEN: No hepatosplenomegaly, active bowel sounds, no guarding or rigidity. SPINE: No scoliosis or deformity SKIN: No rashes CENTRAL NERVOUS SYSTEM: No focal deficits, the patient is currently sedated. EXTREMITIES: There is no peripheral edema, clubbing, or cyanosis. Peripheral pulses are intact. - Labs CBC & Chem 7: 05/12/23 05:01 05/12/23 05:01 Labs: Abnormal Lab Results - Last 24 Hours (Table) 05/11/23 05/11/23 05/12/23 Range/Units 11:44 20:30 05:01 Lymphocytes # 0.7 L (1.0-4.8) k/uL Sodium (137-145) mmol/L Glucose (74-99) mg/dL POC Glucose (mg/dL) 124 H 116 H (70-110) mg/dL Total Protein (6.3-8.2) g/dL Albumin (3.5-5.0) g/dL 05/12/23 Range/Units 05:01 Lymphocytes # (1.0-4.8) k/uL Sodium 135 L (137-145) mmol/L Glucose 105 H (74-99) mg/dL POC Glucose (mg/dL) (70-110) mg/dL Total Protein 5.9 L (6.3-8.2) g/dL Albumin 3.4 L (3.5-5.0) g/dL Assessment and Plan Assessment: Coronary artery bypass surgery and the patient underwent an off-pump bypass 2 with HIL[place] to LAD and radial to ramus intermedius. The patient is currently postop day #2 Postthoracotomy, remains intubated on a mechanical ventilator. Patient was extubated the patient is currently on room air oxygen. Chest tubes are still in place. Output has dropped significantly and the chest is to be removed today. Coronary artery disease and the patient is status post Non-ST elevation myocardial infarction, patient is currently undergoing preoperative workup for a tentative CABG. the tentative surgical date is 05/10/2023, and an echocardiogram was done and the patient has an ejection fraction of 45-50%, normal RV, no significant valvular abnormalities. Multivessel coronary artery disease, as reported during heart catheterization Hyperlipidemia Mild intermittent bronchial asthma, not active Chronic marijuana smoker Obesity, with a BMI of 35.4 kg/m Plan: We will chest tubes today Increase mobility Currently on room and oxygen Aggressive use of incentive spirometer, currently on room air oxygen Continue aspirin and Plavix Continue metoprolol, currently at a dose of 25 mg by mouth twice a day. Continue statins blood sugar Pain control We'll continue to follow
--- NOTE | 2023-05-12 11:16 | P.PN ---
Subjective HISTORY OF PRESENT ILLNESS: Patient is status post cardiac catheterization with Dr. Asencio revealing severe and diffuse disease involving the LAD with disease in the proximal and mid to distal portion, chronic total occlusion of the left circumflex, intermediate disease involving the RCA appeared to be [id number], and normal left- sided filling pressures. Patient examined this morning at the bedside. Patients family present. Patient denies any chest pain or pressure. She denies any shortness of breath. Vital signs are stable. Patient does report a family history of premature coronary artery disease. The patient himself denies a history of hypertension, hyperlipidemia, or diabetes. 05/08/2023 Patient examined this morning at the bedside. Patient denies chest pain or pressure. He denies shortness of breath. He remains on IV heparin. Echocardiogram completed revealing ejection fraction 45-50%. Telemetry reveals sinus bradycardia with heart rate in the 40-50s. 05/09/2023 Patient examined this morning at the bedside. Patient denies any chest pain or pressure. He denies shortness of breath. He remains on IV heparin. Telemetry reveals sinus pericardia with a heart rate in the 50s. He denies any dizziness or lightheadedness. Patient is scheduled for CABG tomorrow. 05/12/2023 Patient examined this morning at the bedside. He is status post CABG 2. Postop day #2. Patient is sitting up in the chair. Patient currently denies chest pain or pressure. He denies shortness of breath. He states he is using his incentive spirometer and pulling about 1500 mL. Chest tubes remain intact. Telemetry reveals sinus mechanism. PHYSICAL EXAM: VITAL SIGNS: Reviewed. GENERAL: Well-developed in no acute distress. NECK: Supple. No JVD or thyromegaly LUNGS: Respirations even and unlabored. Lungs essentially clear to auscultation bilaterally. HEART: Regular rate and rhythm. S1 and S2 heard. EXTREMITIES: Normal range of motion. No clubbing or cyanosis. Peripheral puls es intact. No lower extremity edema ASSESSMENT: Non-STEMI Multivessel coronary artery disease Status post two-vessel CABG Family history of premature coronary artery disease Asymptomatic sinus bradycardia Hyperlipidemia, LDL 170 PLAN: Continue telemetry monitoring Continue current cardiac medications Continue postoperative management per CT surgery Increase activity as tolerated Encourage use of incentive spirometer Further recommendations pending patient course Nurse practitioner note has been reviewed by physician. Signing provider agrees with the documented findings, assessment, and plan of care. Objective - Vital Signs Vital signs: Vital Signs Temp 98.3 F 05/12/23 08:00 Pulse 68 05/12/23 09:45 Resp 16 05/12/23 09:45 BP 115/80 05/12/23 09:00 Pulse Ox 95 05/12/23 09:35 FiO2 50 05/10/23 16:21 Intake & Output 05/11/23 05/12/23 05/12/23 18:59 06:59 18:59 Intake Total 566 429 66 Output Total 635 1055 210 Balance -69 -626 -144 Weight 113.4 kg 112.3 kg Intake: IV 566 429 66 Lactated Ringers 1,000 ml 530 390 60 @ 20 mls/hr IV .Q24H [facility] Rx#:[id number] Pressure Bags 36 39 6 Output: Chest Tube Drainage 150 240 60 Chest Tube Left Pleural/ 70 100 40 Mediastinal Chest Tube Mediastinal 80 140 20 Urine 485 815 150 Other: Voiding Method Indwelling Catheter Indwelling Catheter Indwelling Catheter ABP, PAP, CO, CI - Last Documented Arterial Blood Pressure 86/63 Pulmonary Artery Pressure 32/18 Cardiac Output 7.2 Cardiac Index 3.6 - Labs CBC & Chem 7: 05/12/23 05:01 05/12/23 05:01 Labs: Abnormal Lab Results - Last 24 Hours (Table) 05/11/23 05/11/23 05/12/23 Range/Units 11:44 20:30 05:01 Lymphocytes # 0.7 L (1.0-4.8) k/uL Sodium (137-145) mmol/L Glucose (74-99) mg/dL POC Glucose (mg/dL) 124 H 116 H (70-110) mg/dL Total Protein (6.3-8.2) g/dL Albumin (3.5-5.0) g/dL 05/12/23 Range/Units 05:01 Lymphocytes # (1.0-4.8) k/uL Sodium 135 L (137-145) mmol/L Glucose 105 H (74-99) mg/dL POC Glucose (mg/dL) (70-110) mg/dL Total Protein 5.9 L (6.3-8.2) g/dL Albumin 3.4 L (3.5-5.0) g/dL
--- NOTE | 2023-05-12 11:25 | XR ---
EXAMINATION TYPE: XR chest 1V portable DATE OF EXAM: 05/12/2023 6:18 AM CLINICAL INDICATION:Male, 47 years old with history of Post Operative Cardiac Surgery; [facility] COMPARISON: Chest x-ray 05/11/2023 TECHNIQUE: XR chest 1V portable Frontal view of the chest. FINDINGS: Lungs/Pleura: Interval improved aeration with decreased conspicuity of left upper lobe atelectasis or infiltrate. No sizable pleural effusion, but a tiny left effusion cannot be ruled out. No evidence o f pneumothorax. Pulmonary vascularity: Unremarkable. Heart/mediastinum: Stable cardiomediastinal silhouette, with mild cardiomegaly. Musculoskeletal: No acute osseous pathology. Other findings: Postoperative changes with multiple sternotomy wires and probable left atrial appenda ge clip noted. Lines/Tubes: Previous right-sided [place]-Sebastian catheter appears to have been removed, with likely remaining vascular sheath at the right upper chest. What appear to be a right-sided mediastinal drain and right-sided ch est tube appear grossly stable. EKG leads overlie the chest. IMPRESSION: Cardiomegaly and postoperative changes. Interval improved aeration with decreased conspicuity of left upper lobe atelectasis or infiltrate.
[2023-05-12 11:34] LABS: Glucose,Whole Blood 96 mg/dL (70-110)
--- NOTE | 2023-05-12 12:57 | P.PN ---
Subjective Progress Note Date: 05/12/23 47-year-old gentleman with past medical history significant for hypertension, hyperlipidemia and the ER because of chest pain that started last night. Patient stated he was all right last night when he started noticing central chest pain which was severe in intensity, nonradiating, associated with shortn ess of breath. Patient was complaining of nausea that time. No complain of diaphoresis. No aggravating or relieving factors associated with chest pain. Denied any palpitation. Denied any fever or chills. Because of chest pain, patient came to ER. Initial lab work done in the ER showed WBC 6.3, hemoglobin 13.7, platelet count 320, d-dimer 0.34 sodium 1:30, potassium 4, BUN 13, creatinine 1.14, troponin 0.257 EKG done in the ER heart rate 49, slight ST elevation noticeable in leads 1 and aVL, no reciprocal changes or T-wave inversion seen. Chest x-ray done in the ER showed no active disease Patient was started on heparin, ER physician discussed the case with on-call cardiology and EKGs, they recommended starting heparin and admission to medicine service 05/07. Patient seen and examined. Cardiac catheterization done on 05/06 showed Severe and diffuse disease involving the left anterior descending artery with disease in the proximal and mid and mid to distal portion, Chronic total occlusion of the left circumflex, Intermediate disease involving the right coronary artery. 05/08. Patient seen and examined. Denies any episodes of chest pain. Denies any shortness of breath on exertion. Vital signs stable 05/09/2023 Patient is currently lying in the bed. Awake alert and oriented x3. No complaints of chest pain or shortness of breath. No headache or dizziness or lightheadedness. Hemodynamically stable. Patient is scheduled for coronary artery bypass graft tomorrow. Laboratory data showed WBC 7.9 hemoglobin 12.5 and platelets 283 Sodium 138 potassium 4.3 chloride 104 bicarb is 28 BUN 16 and creatinine 1.02. Liver enzymes not elevated. 05/10/2023 Patient is postoperative day 0 Status post coronary artery bypass graft x2 left internal thoracic artery to left anterior descending artery. Left radial artery from aorta to ramus intermedius. Left atrial appendage ligation. Patient was transferred to MICU postoperatively. Patient does have mediastinal chest tubes and left lung chest tube in place. Currently patient is on mechanical ventilator and is also sedated with propofol. On assist control. Chest x-ray showed postoperative changes of CABG Laboratory data showed WBC 6.3 hemoglobin 12.8 and platelets 234 BUN 15 and creatinine 0.85 blood sugar is 94. AST 64 and ALT 15 alk phos 44. 05/11/2023 patient is postoperative day one, seen by cardiac surgery team, chest tube in place. Postprocedure blood work reviewed including CBC which showed hemoglobin of 12.1, white blood cell count of 8.7. Serum chemistry shows sodium 136, creatinine 0.80 blood glucose 124. Patient denies off any difficulty in breathing, does have chest discomfort from surgical site incision 05/12/23: Patient seen and evaluated bedside. Status post chest tube removal. Hematology shows normal WBC count and normal hemoglobin, serum chemistry shows sodium 135 potassium 4.3 BUN 14 creatinine 0.72. Status post removal of chest tubes Objective - Vital Signs Vital signs: Vital Signs Temp 98.3 F 05/12/23 08:00 Pulse 78 05/12/23 12:37 Resp 16 05/12/23 12:37 BP 128/86 05/12/23 11:00 Pulse Ox 92 L 05/12/23 11:00 FiO2 50 05/10/23 16:21 Intake & Output 05/11/23 05/12/23 05/12/23 18:59 06:59 18:59 Intake Total 566 429 232 Output Total 635 1055 560 Balance -69 -626 -328 Weight 113.4 kg 112.3 kg Intake: IV 566 429 132 Lactated Ringers 1,000 ml 530 390 120 @ 20 mls/hr IV .Q24H [facility] Rx#:[id number] Pressure Bags 36 39 12 Oral 100 Output: Chest Tube Drainage 150 240 60 Chest Tube Left Pleural/ 70 100 40 Mediastinal Chest Tube Mediastinal 80 140 20 Urine 485 815 500 Other: Voiding Method Indwelling Catheter Indwelling Catheter Indwelling Catheter ABP, PAP, CO, CI - Last Documented Arterial Blood Pressure 86/63 Pulmonary Artery Pressure 32/18 Cardiac Output 7.2 Cardiac Index 3.6 - Exam PHYSICAL EXAMINATION: GENERAL: The patient is alert and oriented x3, not in any acute distress. Well developed, well nourished. HEENT: Pupils are round and equally reacting to light. EOMI. No scleral icterus. No conjunctival pallor. Normocephalic, atraumatic. No pharyngeal erythema. No thyromegaly. CARDIOVASCULAR: S1 and S2 present. Lower extremity edema, chest brace in place PULMONARY: Chest tube removed, no respiratory distress ABDOMEN: Soft, nontender, nondistended, normoactive bowel sounds. No palpable organomegaly. MUSCULOSKELETAL: No joint swelling or deformity. EXTREMITIES: No cyanosis, clubbing, or pedal edema. NEUROLOGICAL: Gross neurological examination did not reveal any focal deficits. - Labs CBC & Chem 7: 05/12/23 05:01 05/12/23 05:01 Labs: Abnormal Lab Results - Last 24 Hours (Table) 05/11/23 05/12/23 05/12/23 Range/Units 20:30 05:01 05:01 Lymphocytes # 0.7 L (1.0-4.8) k/uL Sodium 135 L (137-145) mmol/L Glucose 105 H (74-99) mg/dL POC Glucose (mg/dL) 116 H (70-110) mg/dL Total Protein 5.9 L (6.3-8.2) g/dL Albumin 3.4 L (3.5-5.0) g/dL Assessment and Plan Assessment: Assessment and plan Status post coronary artery bypass graft x2 with [place] to LAD and radial to ramus intermedius. Postoperative day 2 Non-ST elevation myocardial infarction Multivessel coronary artery disease Hyperlipidemia Mild intermittent bronchial asthma, not active Chronic marijuana smoker Obesity, with a BMI of 35.4 kg/m Patient is currently in MICU. Extubated, weaned off ventilator Monitor vital signs Monitor CBC Monitor CMP Continue telemetry monitoring Cardiac surgery, Cardiology and pulmonary comanagement Labs and medication were reviewed.
[2023-05-12] MEDS: HYDROcodone/APAP 5-325MG 1 EACH TAB PO PRN ×2 (13:05→20:42)
[2023-05-12 17:03] LABS: Glucose,Whole Blood 110 mg/dL (70-110)
[2023-05-12 20:20] LABS: Glucose,Whole Blood 152 mg/dL (70-110)
[2023-05-12] MEDS: SENNOSIDES-DOCUSATE SODIUM 1 EACH TAB PO SCH (20:43)
[2023-05-13] MEDS: HYDROcodone/APAP 5-325MG 1 EACH TAB PO PRN ×3 (04:22→20:19)
[2023-05-13 05:27] LABS: Basophils % (A) 0 %; Eosinophils # (A) 0.2 k/uL (0-0.7); Eosinophils % (A) 2 %; HCT 35.4 % (39.0-53.0); HGB 11.8 gm/dL (13.0-17.5); Lymphocytes # (A) 1.2 k/uL (1.0-4.8); Lymphocytes % (A) 13 %; MCH 32.2 pg (25.0-35.0); MCHC 33.4 g/dL (31.0-37.0); MCV 96.6 fL (80.0-100.0); Mean Platelet Volume 7.3; Monocytes # (A) 0.8 k/uL (0-1.0); Monocytes % (A) 9 %; Neutrophils # (A) 6.8 k/uL (1.3-7.7); Neutrophils % (A) 75 %; Platelet Count 221 k/uL (150-450); RBC 3.67 m/uL (4.30-5.90); WBC 9.1 k/uL (3.8-10.6)
[2023-05-13 05:36] LABS: ALT 28 U/L (4-49); AST 34 U/L (17-59); African American GFR (CKD) >90 (>60 ml/min/1.73 sqM); Albumin 3.3 g/dL (3.5-5.0); Alkaline Phosphatase 47 U/L (38-126); Anion Gap 6 mmol/L; Blood Urea Nitrogen 13 mg/dL (9-20); Calcium 8.7 mg/dL (8.4-10.2); Carbon Dioxide 27 mmol/L (22-30); Chloride 105 mmol/L (98-107); Glucose 111 mg/dL (74-99); Non-African American GFR(CKD) >90 (>60 ml/min/1.73 sqM); Potassium 4.4 mmol/L (3.5-5.1); Sodium 138 mmol/L (137-145); Total Bilirubin 0.8 mg/dL (0.2-1.3)
[2023-05-13] MEDS: INSULIN ASPART (NovoLOG) 100 UNIT/ML VIAL SQ SCH ×4 (05:42→20:27)
[2023-05-13] MEDS: KETOROLAC 15 MG/ML 1 ML VIAL IVP SCH ×4 (06:08→23:03)
[2023-05-13] MEDS: IPRATROPIUM-ALBUTEROL 3 ML NEB INHALATION SCH ×4 (07:41→20:51)
--- NOTE | 2023-05-13 07:42 | P.PN ---
Subjective Progress Note Date: 05/13/23 Principal diagnosis: Coronary artery disease, non-STEMI this admission. History of hypertension, hyperlipidemia, asthma, lifelong nonsmoker of cigarettes, daily marijuana use, family history of CAD, premature CAD POD #3 off-pump coronary artery bypass graft 2 with left internal thoracic artery (in situ) to the left anterior descending artery, left radial artery from the aorta to the ramus intermedius, endoscopic left radial artery harvest, left atrial appendage ligation with 35 mm AtriClip, graft flow measurements using the Medistim flowmeter, intraoperative transesophageal echocardiogram performed by anesthesia The patient was seen and examined this morning sitting up in a recliner in the intensive care unit in no acute distress. States pain is controlled on current medication regimen, denies shortness of breath. Remains in sinus rhythm, hemodynamically stable on no inotropes or pressors. Chest x-ray, labs reviewed. Patient has been ambulatory without difficulty. Transfer orders placed yesterday for 3S, no beds available. No other new concerns. Objective - Vital Signs Vital signs: Vital Signs Temp 97.8 F 05/13/23 04:00 Pulse 78 05/13/23 04:00 Resp 18 05/13/23 04:00 BP 114/86 05/13/23 04:00 Pulse Ox 93 L 05/13/23 04:00 FiO2 50 05/10/23 16:21 Intake & Output 05/12/23 05/13/23 05/13/23 18:59 06:59 18:59 Intake Total 232 500 Output Total 560 1150 Balance -328 -650 Weight 110.7 kg Intake: IV 132 Lactated Ringers 1,000 ml 120 @ 20 mls/hr IV .Q24H [facility] Rx#:[id number] Pressure Bags 12 Oral 100 500 Output: Chest Tube Drainage 60 Chest Tube Left Pleural/ 40 Mediastinal Chest Tube Mediastinal 20 Urine 500 1150 Other: Voiding Method Indwelling Catheter Urinal ABP, PAP, CO, CI - Last Documented Arterial Blood Pressure 86/63 Pulmonary Artery Pressure 32/18 Cardiac Output 7.2 Cardiac Index 3.6 - Exam CONSTITUTIONAL: Appears comfortable, cooperative, no acute distress RESPIRATORY: Lungs sounds diminished bilaterally. Respirations even, nonlabored. Currently on room air with oxygen saturation 93%. Able to achieve 1500 mL on incentive spirometry. Strong nonproductive cough. CARDIOVASCULAR: S1, S2 present. Regular rate and rhythm, sinus rhythm on telemetry. Sternum stable. Palpable peripheral pulses bilaterally. No edema present. No calf pain or tenderness noted. Heart hugger in place with patient demonstrating appropriate use. Antiembolism stockings, SCDs present. GASTROINTESTINAL: Abdomen soft, nontender, nondistended. Active bowel sounds p resent 4 quadrants. Tolerating diet. Positive flatus GENITOURINARY: Continues to void. Output 1650 mL in the last 24 hours INTEGUMENTARY: Skin is warm and dry with evidence of good perfusion. Anterior chest incision well approximated and covered with dry intact dressing. Left radial artery harvest site site well approximated without redness or drainage. NEUROLOGIC: Cranial nerves II through XII intact MUSKULOSKELETAL: Able to move all extremities, strength equal bilaterally, gait normal PSYCHIATRIC: Alert and oriented to person place and time, appropriate affect, intact judgment and insight INVASIVE LINES AND TUBES: V epicardial pacemaker wires present, grounded - Allied health notes Allied health notes reviewed: nursing - Labs CBC & Chem 7: 05/13/23 05:12 05/13/23 05:12 Labs: Abnormal Lab Results - Last 24 Hours (Table) 05/12/23 05/13/23 05/13/23 Range/Units 20:18 05:12 05:12 RBC 3.67 L (4.30-5.90) m/uL Hgb 11.8 L (13.0-17.5) gm/dL Hct 35.4 L (39.0-53.0) % Glucose 111 H (74-99) mg/dL POC Glucose (mg/dL) 152 H (70-110) mg/dL Total Protein 6.0 L (6.3-8.2) g/dL Albumin 3.3 L (3.5-5.0) g/dL - Imaging and Cardiology Chest x-ray: image reviewed Assessment and Plan Assessment: Coronary artery disease, non-STEMI this admission, status post 2 vessel CABG Chest pain, secondary to above Hypertension Hyperlipidemia, cholesterol 242, LDL 170 Asthma Lifelong nonsmoker (cigarettes), preoperative FEV1 72% of predicted Daily marijuana use Family history of CAD, premature CAD Plan: Continue to maximize medical therapy with aspirin, statin, Plavix, beta aminata. Will increase beta aminata as tolerated Continue calcium channel aminata for radial artery spasm prophylaxis Encourage incentive spirometry use, bronchodilators per pulmonology Increase activity, ambulate as tolerated. PT/OT/cardiac rehab consulted We will monitor daily labs and x-rays. Electrolyte replacement per protocol GI/DVT prophylaxis Pain control per current medication regimen Insulin management per internal medicine. Patient is not diabetic, preoperative hemoglobin A1c 5.6% Shower daily Continue to record accurate I/O Daily weights Transfer orders placed yesterday for 3 S. cardiac stepdown unit. May transfer when bed available Discharge planning in place, anticipate discharge to home with home care tomorr ow More recommendations to follow
[2023-05-13] MEDS: CLOPIDOGREL 75 MG TAB PO SCH (08:11)
[2023-05-13] MEDS: ATORVASTATIN 80 MG TAB PO SCH (08:11)
[2023-05-13] MEDS: PANTOPRAZOLE 40 MG TABLET PO SCH (08:11)
[2023-05-13] MEDS: ASPIRIN 325 MG TAB PO SCH (08:11)
[2023-05-13] MEDS: METOPROLOL TARTRATE 25 MG TAB PO SCH ×2 (08:11→20:20)
[2023-05-13] MEDS: HEPARIN SODIUM,PORCINE 5,000 UNIT/ML 1 ML VIAL SQ SCH ×3 (08:12→23:03)
--- NOTE | 2023-05-13 09:04 | P.PN ---
Subjective Progress Note Date: 05/13/23 Principal diagnosis: CAD status post CABG The patient is a 47-year-old gentleman with hypertension and dyslipidemia who was admitted to the hospital with chest discomfort and ruled in for acute coronary syndrome. He underwent a heart catheterization and was found to have severe 2 vessel CAD and intermediate one-vessel CAD. Was seen by the cardiothoracic surgical team and he underwent CABG 2 with HILTON to LAD and radial artery to ramus intermedius May [id number] postovulation day #1. Overall he seems to be doing good. He is on nitro drip at this point. Beside that hemodynamically stable. Urine output is good. The chest x-ray appeared to be slightly hazy and wet and he might benefit from a dose of Lasix IV. Beside that he is on intermediate intensity statin which I'm going to increase into high intensity statin. Beside that he is on aspirin and Plavix. From the cardiovascular standpoint of view, we'll continue current medical regimen was increased the dose of statin. The examination is remarkable for diminished breathing sounds bilaterally May [id number] The patient was seen and evaluated this morning. Overall is doing good recovery. He is maintaining normal sinus mechanism. He is hemodynamically stable. He is on maximize medical treatment. Chest x-ray was reviewed. Blood work was reviewed. His urine output has been good. Assessment CAD as described above status post CABG Hypertension Dyslipidemia Plan Continue the current medical regimen Continue dual antiplatelet therapy along with high intensity statin Continue monitor the kidney function and electrolytes and hemoglobin The patient Be possibly transferred to Objective - Vital Signs Vital signs: Vital Signs Temp 97.8 F 05/13/23 08:00 Pulse 87 05/13/23 08:00 Resp 20 05/13/23 08:00 BP 117/77 05/13/23 08:00 Pulse Ox 95 05/13/23 08:00 FiO2 50 05/10/23 16:21 Intake & Output 05/12/23 05/13/23 05/13/23 18:59 06:59 18:59 Intake Total 232 500 Output Total 560 1150 Balance -328 -650 Weight 110.7 kg Intake: IV 132 Lactated Ringers 1,000 ml 120 @ 20 mls/hr IV .Q24H [facility] Rx#:[id number] Pressure Bags 12 Oral 100 500 Output: Chest Tube Drainage 60 Chest Tube Left Pleural/ 40 Mediastinal Chest Tube Mediastinal 20 Urine 500 1150 Other: Voiding Method Indwelling Catheter Urinal Urinal ABP, PAP, CO, CI - Last Documented Arterial Blood Pressure 86/63 Pulmonary Artery Pressure 32/18 Cardiac Output 7.2 Cardiac Index 3.6 - Labs CBC & Chem 7: 05/13/23 05:12 05/13/23 05:12 Labs: Abnormal Lab Results - Last 24 Hours (Table) 05/12/23 05/13/23 05/13/23 Range/Units 20:18 05:12 05:12 RBC 3.67 L (4.30-5.90) m/uL Hgb 11.8 L (13.0-17.5) gm/dL Hct 35.4 L (39.0-53.0) % Glucose 111 H (74-99) mg/dL POC Glucose (mg/dL) 152 H (70-110) mg/dL Total Protein 6.0 L (6.3-8.2) g/dL Albumin 3.3 L (3.5-5.0) g/dL
--- NOTE | 2023-05-13 09:25 | P.PN ---
Subjective Progress Note Date: 05/13/23 I am seeing this patient in new consultation today 05/07/2023 on the cardiac stepdown unit for a preoperative pulmonary evaluation for a tentative CABG. Patient is a 47-year-old white male past medical history significant for mild intermittent asthma, hyperlipidemia, and hypertension. Denies any premature history of heart disease. Patient presented to the emergency room after developing substernal chest pressure which radiated up his neck that started at 11 PM on May 05, he presented to the hospital early the next morning. Patient was also experiencing some nausea and shortness of breath at that time. He did have a heart catheterization yesterday afternoon, and was found to have multivessel coronary artery disease. No PCI was performed. There was severe diffuse disease involving the left anterior descending artery, chronic total occlusion of the left circumflex, and moderate disease of the RCA. Cardiothoracic surgery was consulted for possible open-heart surgery. Patient is currently sitting up in bed, on room air, in no acute distress. He denies any current chest pain. He is on heparin infusion per protocol. Patient's pulmonary status seems to be stable. He does admit history of mild intermittent asthma In which he controls with when necessary albuterol. He states that he almost never needs to use his inhaler. Denies ever being a tobacco smoker, however, he does smoke marijuana daily. Bedside spirometry shows an FEV1 of 2.74 L or 72% of predicted. ECG on arrival showed sinus bradycardia with no significant ST elevation. There was less than 1 mm of elevation in lead 1. Troponins were elevated and are trending up at 0.257, 0.27, and 1.14 respectively. CBC on arrival was unremarkable. D-dimer not elevated. CMP unremarkable. Hemodynamically the patient seems stable. On today's evaluation of 05/08/2023, the patient has no specific complaints. History of any chest pain. He is having some sinus bradycardia, asymptomatic and is hemodynamically stable. No chest pain. No other complaints otherwise for now. The plan is to proceed with surgery on 05/10/2023. on today's evaluation of 05/09/2023, the patient's by mouth any chest pain. Hemodynamically stable. No complaints. The plan is to proceed with surgery tomorrow. Hemoglobin was at 12.5, BUN is at 60 with a creatinine of 1.02 and a sodium level is at 138. The patient has no other complaints otherwise for now. Ready to undergo his cardiac surgery tomorrow. On 05/10/2023, the patient is post bypass surgery and the patient was evaluated immediately after arrival to the intensive care unit. The patient underwent off pump coronary artery bypass surgery 2 with HILTON to LAD and left radial to ramus intermedius. At this point in time, the patient sedated on a mechanical ventilator. The patient is currently off propofol running at 40 mcg/kg/m and the patient is adequately sedated. The patient is a mechanical ventilator assist control mode at a rate of 12, tidal volume of 400, 5-100% with a PEEP of 5. The patient's blood gases showed a pH of 7.31 with episodes of 51 and pO2 of 145. Based on that, the respiratory rate was brought up to 24 and FiO2 was up to 80%. The patient has 2 mediastinal chest tubes and total amount of output has been 100 mL and there is also trace output from the left lower chest tube. Chest x-ray shows adequate expansion of both lungs. The patient has Winfield-Sebastian catheter in place. ET tube is in a good location. Cardiac output is at 6.6 w ith an index of 3.3. The pulmonary artery pressure is 31/20. BP is 102/55 the patient is being given volume to support the blood pressure. Urine output is adequate. The patient's cardiac rhythm is sinus and the patient is relatively bradycardic with a heart rate ranging between 55 and 65 bpm. Hemoglobin is 11.8 and the echoes at 8 with a platelet count of 261. The rest of the electrolytes are normal. BUN is a 50 with a creatinine of 0.8. Meanwhile, the patient is on nitroglycerin drip running at 5 mcg/m. 05/21/2023, the patient is doing extremely well. He was weaned off the the [facility] han[facility] ventilator, extubated without any major difficulties and currently is on room air oxygen. He did have some atelectatic changes in his upper lobes bilaterally and the lung volumes are relatively smaller on today's evaluation. The patient has mediastinum and left pleural chest tube. Output from the mediastinal is in order of 4 50 mL since surgery and to 60 over the past 8 hours, left lower chest tube output has been 300 since surgery and 40 over the past 8 hours. Long as catheter has been removed. Cardiac outputs prior to his Winfield removal was 7.2 with an index of 3.6. PA pressures were 32/18. Cardiac rhythm is sinus. Hemodynamically stable. Nitroglycerin drip has been disconti nued. He was having some soreness in his chest and he was given fentanyl for pain control. Hemoglobin currently is at 12.1 and a platelet count of 223. The white cell count of 8.7. The sodium is at 136 with a BUN of 18 and a creatinine of 0.8. No focal neurological deficits. Patient is doing well for now. He is currently postop day #1. On today's evaluation of 05/12/2023, no complaints. Patient is postop day #2. He is doing extremely well. Cardiac rhythm is sinus. Hemodynamically stable. Chest tubes are still in place. CVP is at 5. Output from the chest tube was monitored and the patient has produced approximately 200 mL from the mediastinal chest tube over the past 24 hours and 200 mL from the mediastinal/right lower chest tube. No evidence of any air leak. Chest x-ray shows adequate expansion. No evidence of any pneumothorax or pleural effusion. Hemoglobin is at 14.3, BUN is at 40 with a creatinine of 0.7. Ambulating. Using the incentive spirometer. Pulling approximately 1500. No issues otherwise.... On today's evaluation of 05/13/2023, the patient is postop day #3. Doing extremely well. He remains on room air oxygen. All of the chest tubes are removed. No evidence of pneumothorax on today's chest x-ray. There is some atelectatic changes and there is increase in the gastric bubble. He states that he is passing gas adequately. No nausea or emesis. No chest pain. White cell cause of 9.1 with a hemoglobin 11.8 which is up compared to yesterday. No evidence of any bleeding at this point in time. BUN is at 30 with a creatinine of 0.8 and sodium level is at 138. His blood pressures under well control and there is no significant tachycardia. The patient remains on aspirin. The patient remains on Plavix. The patient is receiving metoprolol at a dose of 25 mg by mouth twice a day. He remains on statins with Lipitor 80 mg by mouth breanna y. He is on sliding-scale insulin coverage. No other active issues for now. Objective - Vital Signs Vital signs: Vital Signs Temp 97.8 F 05/13/23 08:00 Pulse 87 05/13/23 08:00 Resp 20 05/13/23 08:00 BP 117/77 05/13/23 08:00 Pulse Ox 95 05/13/23 08:00 FiO2 50 05/10/23 16:21 Intake & Output 05/12/23 05/13/23 05/13/23 18:59 06:59 18:59 Intake Total 232 500 Output Total 560 1150 Balance -328 -650 Weight 110.7 kg Intake: IV 132 Lactated Ringers 1,000 ml 120 @ 20 mls/hr IV .Q24H [facility] Rx#:[id number] Pressure Bags 12 Oral 100 500 Output: Chest Tube Drainage 60 Chest Tube Left Pleural/ 40 Mediastinal Chest Tube Mediastinal 20 Urine 500 1150 Other: Voiding Method Indwelling Catheter Urinal Urinal ABP, PAP, CO, CI - Last Documented Arterial Blood Pressure 86/63 Pulmonary Artery Pressure 32/18 Cardiac Output 7.2 Cardiac Index 3.6 - Exam GENERAL EXAM: Alert, 47-year-old obese white male , currentlyon room air oxygen, awake and alert EYES: Normal reaction of pupils, equal size. NOSE: Clear with pink turbinates. THROAT: No erythema or exudates. NECK: No masses, no JVD. CHEST: No chest wall deformity. LUNGS: Equal air entry with no crackles, wheeze, rhonchi or dullness. The patient has a thoracotomy scar. The patient at the chest tubes removed CVS: S1 and S2 normal with no audible murmur, regular rhythm. No extra heart sounds ABDOMEN: No hepatosplenomegaly, active bowel sounds, no guarding or rigidity. SPINE: No scoliosis or deformity SKIN: No rashes CENTRAL NERVOUS SYSTEM: No focal deficits, the patient is currently sedated. EXTREMITIES: There is no peripheral edema, clubbing, or cyanosis. Peripheral pulses are intact. - Labs CBC & Chem 7: 05/13/23 05:12 05/13/23 05:12 Labs: Abnormal Lab Results - Last 24 Hours (Table) 05/12/23 05/13/23 05/13/23 Range/Units 20:18 05:12 05:12 RBC 3.67 L (4.30-5.90) m/uL Hgb 11.8 L (13.0-17.5) gm/dL Hct 35.4 L (39.0-53.0) % Glucose 111 H (74-99) mg/dL POC Glucose (mg/dL) 152 H (70-110) mg/dL Total Protein 6.0 L (6.3-8.2) g/dL Albumin 3.3 L (3.5-5.0) g/dL Assessment and Plan Assessment: Coronary artery bypass surgery and the patient underwent an off-pump bypass 2 with HILTON to LAD and radial to ramus intermedius. The patient is currently postop day # 3 Postthoracotomy, remains intubated on a mechanical ventilator. Patient was extubated the patient is currently on room air oxygen. Chest tubes are removed Coronary artery disease and the patient is status post Non-ST elevation myoca rdial infarction, patient is currently undergoing preoperative workup for a tentative CABG. the tentative surgical date is 05/10/2023, and an echocardiogram was done and the patient has an ejection fraction of 45-50%, normal RV, no significant valvular abnormalities. Multivessel coronary artery disease, as reported during heart catheterization Hyperlipidemia Mild intermittent bronchial asthma, not active Chronic marijuana smoker Obesity, with a BMI of 35.4 kg/m Plan: Chest tubes removed Increase mobility Currently on room and oxygen Aggressive use of incentive spirometer, currently on room air oxygen Continue aspirin and Plavix Continue metoprolol, currently at a dose of 25 mg by mouth twice a day. Continue statins blood sugar Pain control We'll continue to follow , we'll downgrade the patient to selective
--- NOTE | 2023-05-13 10:17 | XR ---
EXAMINATION TYPE: XR chest 2V DATE OF EXAM: 05/13/2023 6:28 AM CLINICAL INDICATION:Male, 47 years old with history of post cardiac surgery; [facility] COMPARISON: 05/12/2023 TECHNIQUE: XR chest 2V Frontal and lateral views of the chest. FINDINGS: Lungs/Pleura: No focal consolidation, sizable effusion, or evidence of pneumothorax. Mild asymmetric elevation left hemidiaphragm. Pulmonary vascularity: Unremarkable. Heart/mediastinum: Stable cardiomediastinal silhouette, with mild cardiomegaly. Musculoskeletal: No acute osseous pathology. Other findings: Postoperative changes with multiple sternotomy wires and probable left atrial appenda ge clip noted. Lines/Tubes: Previous right-sided vascular sheath, mediastinal drain, and chest tube appear to have been removed. EKG leads overlie the chest. IMPRESSION: 1. Cardiomegaly and postoperative changes. 2. Interval removal of lines/tubes. 3. No acute cardiopulmonary abnormality.
[2023-05-13 11:43] LABS: Glucose,Whole Blood 97 mg/dL (70-110)
[2023-05-13] MEDS: amLODIPine 5 MG TAB PO SCH (11:46)
--- NOTE | 2023-05-13 12:33 | P.PN ---
Subjective 47-year-old gentleman with past medical history significant for hypertension, hyperlipidemia and the ER because of chest pain that started last night. Patient stated he was all right last night when he started noticing central chest pain which was severe in intensity, nonradiating, associated with shortness of breath. Patient was complaining of nausea that time. No complain of diaphoresis. No aggravating or relieving factors associated with chest pain. Denied any palpitation. Denied any fever or chills. Because of chest pain, patient came to ER. Initial lab work done in the ER showed WBC 6.3, hemoglobin 13.7, platelet count 320, d-dimer 0.34 sodium 1:30, potassium 4, BUN 13, creatinine 1.14, troponin 0.257 EKG done in the ER heart rate 49, slight ST elevation noticeable in leads 1 and aVL, no reciprocal changes or T-wave inversion seen. Chest x-ray done in the ER showed no active disease Patient was started on heparin, ER physician discussed the case with on-call cardiology and EKGs, they recommended starting heparin and admission to medicine service 05/07. Patient seen and examined. Cardiac catheterization done on 05/06 showed Severe and diffuse disease involving the left anterior descending artery with disease in the proximal and mid and mid to distal portion, Chronic total occlusion of the left circumflex, Intermediate disease involving the right coronary artery. 05/08. Patient seen and examined. Denies any episodes of chest pain. Denies any shortness of breath on exertion. Vital signs stable 05/09/2023 Patient is currently lying in the bed. Awake alert and oriented x3. No complaints of chest pain or shortness of breath. No headache or dizziness or lightheadedness. Hemodynamically stable. Patient is scheduled for coronary artery bypass graft tomorrow. Laboratory data showed WBC 7.9 hemoglobin 12.5 and platelets 283 Sodium 138 potassium 4.3 chloride 104 bicarb is 28 BUN 16 and creatinine 1.02. Liver enzymes not elevated. 05/10/2023 Patient is postoperative day 0 Status post coronary artery bypass graft x2 left internal thoracic artery to left anterior descending artery. Left radial artery from aorta to ramus intermedius. Left atrial appendage ligation. Patient was transferred to MICU postoperatively. Patient does have mediastinal chest tubes and left lung chest tube in place. Currently patient is on mechanical ventilator and is also sedated with propofol. On assist control. Chest x-ray showed postoperative changes of CABG Laboratory data showed WBC 6.3 hemoglobin 12.8 and platelets 234 BUN 15 and creatinine 0.85 blood sugar is 94. AST 64 and ALT 15 alk phos 44. 05/11/2023 patient is postoperative day one, seen by cardiac surgery team, chest tube in place. Postprocedure blood work reviewed including CBC which showed hemoglobin of 12.1, white blood cell count of 8.7. Serum chemistry shows sodium 136, creatinine 0.80 blood glucose 124. Patient denies off any difficulty in breathing, does have chest discomfort from surgical site incision 05/12/23: Patient seen and evaluated bedside. Status post chest tube removal. Hematology shows normal WBC count and normal hemoglobin, serum chemistry shows sodium 135 potassium 4.3 BUN 14 creatinine 0.72. Status post removal of chest tubes 05/13/2023: Patient seen and evaluated bedside. Patient downgraded to medical floor. Status post Tee catheter removed patient ambulated in the [facility] primary team planning discharge within the next 24 hours. Blood work reviewed Objective - Vital Signs Vital signs: Vital Signs Temp 98 F 05/13/23 12:00 Pulse 82 05/13/23 12:00 Resp 19 05/13/23 12:00 BP 130/94 05/13/23 12:00 Pulse Ox 94 L 05/13/23 12:00 FiO2 50 05/10/23 16:21 Intake & Output 05/12/23 05/13/23 05/13/23 18:59 06:59 18:59 Intake Total 232 500 Output Total 560 1150 Balance -328 -650 Weight 110.7 kg Intake: IV 132 Lactated Ringers 1,000 ml 120 @ 20 mls/hr IV .Q24H [facility] Rx#:[id number] Pressure Bags 12 Oral 100 500 Output: Chest Tube Drainage 60 Chest Tube Left Pleural/ 40 Mediastinal Chest Tube Mediastinal 20 Urine 500 1150 Other: Voiding Method Indwelling Catheter Urinal Urinal ABP, PAP, CO, CI - Last Documented Arterial Blood Pressure 86/63 Pulmonary Artery Pressure 32/18 Cardiac Output 7.2 Cardiac Index 3.6 - Exam PHYSICAL EXAMINATION: GENERAL: The patient is alert and oriented x3, not in any acute distress. Well developed, well nourished. HEENT: Pupils are round and equally reacting to light. EOMI. CARDIOVASCULAR: S1 and S2 present. Lower extremity edema, chest brace in place PULMONARY: Chest tube removed, no respiratory distress ABDOMEN: Soft, nontender, nondistended, normoactive bowel sounds. No palpable organomegaly. MUSCULOSKELETAL: No joint swelling or deformity. EXTREMITIES: No cyanosis, clubbing, or pedal edema. NEUROLOGICAL: Gross neurological examination did not reveal any focal deficits. - Labs CBC & Chem 7: 05/13/23 05:12 05/13/23 05:12 Labs: Abnormal Lab Results - Last 24 Hours (Table) 05/12/23 05/13/23 05/13/23 Range/Units 20:18 05:12 05:12 RBC 3.67 L (4.30-5.90) m/uL Hgb 11.8 L (13.0-17.5) gm/dL Hct 35.4 L (39.0-53.0) % Glucose 111 H (74-99) mg/dL POC Glucose (mg/dL) 152 H (70-110) mg/dL Total Protein 6.0 L (6.3-8.2) g/dL Albumin 3.3 L (3.5-5.0) g/dL Assessment and Plan Assessment: Assessment and plan Status post coronary artery bypass graft x2 with HILTON to LAD and radial to ramus intermedius. Postoperative day 2 Non-ST elevation myocardial infarction Multivessel coronary artery disease Hyperlipidemia Mild intermittent bronchial asthma, not active Chronic marijuana smoker Obesity, with a BMI of 35.4 kg/m Patient is currently in MICU. Extubated, weaned off ventilator, on room air Monitor vital signs Monitor CBC Monitor CMP Continue telemetry monitoring Cardiac surgery, Cardiology and pulmonary comanagement Labs and medication were reviewed.
[2023-05-13 17:26] LABS: Glucose,Whole Blood 106 mg/dL (70-110)
[2023-05-13] MEDS: SENNOSIDES-DOCUSATE SODIUM 1 EACH TAB PO SCH (20:19)
[2023-05-14] MEDS: HYDROcodone/APAP 5-325MG 1 EACH TAB PO PRN (05:38)
[2023-05-14 05:58] LABS: HCT 36.5 % (39.0-53.0); HGB 11.7 gm/dL (13.0-17.5); MCH 31.1 pg (25.0-35.0); MCV 97.2 fL (80.0-100.0); Mean Platelet Volume 7.2; Platelet Count 283 k/uL (150-450); RBC 3.75 m/uL (4.30-5.90); RDW 13.1 % (11.5-15.5); WBC 8.4 k/uL (3.8-10.6)
[2023-05-14 06:15] LABS: African American GFR (CKD) >90 (>60 ml/min/1.73 sqM); Anion Gap 9 mmol/L; Blood Urea Nitrogen 14 mg/dL (9-20); Calcium 8.8 mg/dL (8.4-10.2); Carbon Dioxide 24 mmol/L (22-30); Chloride 105 mmol/L (98-107); Glucose 109 mg/dL (74-99); Non-African American GFR(CKD) >90 (>60 ml/min/1.73 sqM); Potassium 3.8 mmol/L (3.5-5.1); Sodium 138 mmol/L (137-145)
[2023-05-14] MEDS: INSULIN ASPART (NovoLOG) 100 UNIT/ML VIAL SQ SCH (06:35)
[2023-05-14] MEDS: KETOROLAC 15 MG/ML 1 ML VIAL IVP SCH ×2 (06:53→11:06)
[2023-05-14] MEDS: PANTOPRAZOLE 40 MG TABLET PO SCH (06:53)
[2023-05-14] MEDS ORDERED: POTASSIUM CHLORIDE ER 20 MEQ TAB.ER PO SCH (07:00)
--- NOTE | 2023-05-14 07:26 | P.PN ---
Subjective Progress Note Date: 05/14/23 Principal diagnosis: Coronary artery disease, non-STEMI this admission. History of hypertension, hyperlipidemia, asthma, lifelong nonsmoker of cigarettes, daily marijuana use, family history of CAD, premature CAD POD #4 off-pump coronary artery bypass graft 2 with left internal thoracic artery (in situ) to the left anterior descending artery, left radial artery from the aorta to the ramus intermedius, endoscopic left radial artery harvest, left atrial appendage ligation with 35 mm AtriClip, graft flow measurements using the Medistim flowmeter, intraoperative transesophageal echocardiogram performed by anesthesia The patient was seen and examined this morning sitting up in a recliner in the intensive care unit in no acute distress. States pain is controlled on current medication regimen, denies shortness of breath. Remains in sinus rhythm, hemodynamically stable. Chest x-ray, labs reviewed. Patient has been ambulatory without difficulty. Transfer orders placed for 3S, no beds available. Patient states he feels ready to go home today. No other new concer ns. Objective - Vital Signs Vital signs: Vital Signs Temp 98.0 F 05/14/23 04:00 Pulse 68 05/14/23 04:00 Resp 17 05/14/23 04:00 BP 131/90 05/14/23 04:00 Pulse Ox 96 05/14/23 04:00 FiO2 50 05/10/23 16:21 Intake & Output 05/13/23 05/14/23 05/14/23 18:59 06:59 18:59 Intake Total 540 Output Total 1100 Balance -560 Weight 109.4 kg Intake: Oral 540 Output: Urine 1100 Other: Voiding Method Urinal Urinal ABP, PAP, CO, CI - Last Documented Arterial Blood Pressure 86/63 Pulmonary Artery Pressure 32/18 Cardiac Output 7.2 Cardiac Index 3.6 - Exam CONSTITUTIONAL: Appears comfortable, cooperative, no acute distress RESPIRATORY: Lungs sounds diminished bilaterally. Respirations even, nonlabored. Currently on room air with oxygen saturation 96%. Able to achieve 2500 mL on incentive spirometry. Strong nonproductive cough. CARDIOVASCULAR: S1, S2 present. Regular rate and rhythm, sinus rhythm on telemetry. Sternum stable. Palpable peripheral pulses bilaterally. No edema present. No calf pain or tenderness noted. Heart hugger in place with patient demonstrating appropriate use. Antiembolism stockings, SCDs present. GASTROINTESTINAL: Abdomen soft, nontender, nondistended. Active bowel sounds present 4 quadrants. Tolerating diet. Positive flatus GENITOURINARY: Continues to void INTEGUMENTARY: Skin is warm and dry with evidence of good perfusion. Anterior chest incision well approximated. Left radial artery harvest site site well approximated without redness or drainage. NEUROLOGIC: Cranial nerves II through XII intact MUSKULOSKELETAL: Able to move all extremities, strength equal bilaterally, gait normal PSYCHIATRIC: Alert and oriented to person place and time, appropriate affect, intact judgment and insight INVASIVE LINES AND TUBES: V epicardial pacemaker wires present, grounded - Allied health notes Allied health notes reviewed: nursing - Labs CBC & Chem 7: 05/14/23 05:35 05/14/23 05:35 Labs: Abnormal Lab Results - Last 24 Hours (Table) 05/14/23 05/14/23 Range/Units 05:35 05:35 RBC 3.75 L (4.30-5.90) m/uL Hgb 11.7 L (13.0-17.5) gm/dL Hct 36.5 L (39.0-53.0) % Glucose 109 H (74-99) mg/dL - Imaging and Cardiology Chest x-ray: image reviewed Assessment and Plan Assessment: Coronary artery disease, non-STEMI this admission, status post 2 vessel CABG Chest pain, secondary to above Hypertension Hyperlipidemia, cholesterol 242, LDL 170 Asthma Lifelong nonsmoker (cigarettes), preoperative FEV1 72% of predicted Daily marijuana use Family history of CAD, premature CAD Plan: Continue to maximize medical therapy with aspirin, statin, Plavix, beta aminata Continue calcium channel aminata for radial artery spasm prophylaxis Encourage incentive spirometry use, bronchodilators per pulmonology Increase activity, ambulate as tolerated. PT/OT/cardiac rehab consulted We will monitor daily labs and x-rays. Electrolyte replacement per protocol GI/DVT prophylaxis Pain control per current medication regimen Insulin management per internal medicine. Patient is not diabetic, preoperative hemoglobin A1c 5.6% Shower daily Continue to record accurate I/O Daily weights Will discontinue epicardial pacemaker wires this morning, patient to remain on bedrest for 1 hour post-wire removal Discharge planning in place, anticipate discharge to home with home care today More recommendations to follow
[2023-05-14] MEDS: HEPARIN SODIUM,PORCINE 5,000 UNIT/ML 1 ML VIAL SQ SCH (08:03)
[2023-05-14] MEDS: ATORVASTATIN 80 MG TAB PO SCH (08:04)
[2023-05-14] MEDS: ASPIRIN 325 MG TAB PO SCH (08:04)
[2023-05-14] MEDS: CLOPIDOGREL 75 MG TAB PO SCH (08:04)
[2023-05-14] MEDS: METOPROLOL TARTRATE 25 MG TAB PO SCH (08:04)
[2023-05-14] MEDS: IPRATROPIUM-ALBUTEROL 3 ML NEB INHALATION SCH (08:22)
[2023-05-14 08:33] VITALS: PULSE 72; RESP 16
--- NOTE | 2023-05-14 08:38 | XR ---
EXAMINATION TYPE: XR chest 2V DATE OF EXAM: 05/14/2023 COMPARISON: 05/13/2023 TECHNIQUE: PA and lateral views submitted. HISTORY: Post open heart FINDINGS: Postsurgical change in cardiomegaly with left lower lobe and right perihilar atelectasis. No pneumoth orax. Tiny bilateral pleural effusion. Limited inspiration. IMPRESSION: 1. Bilateral areas of consolidation favor postoperative atelectasis over pneumonia.
[2023-05-14 09:33] VITALS: BP 127/84; TEMP 98.7
--- NOTE | 2023-05-14 10:27 | P.DS ---
Providers Date of admission: 05/06/23 01:36 Expected date of discharge: 05/14/23 Attending physician: Ricky Villavicencio MD Consults: 05/06/23 01:33 Consult Physician Urgent Consulting Provider: Felix Choi Consult Reason/Comments: chest pain, elevated troponin Do you want consulting provider notified?: Already Contacted 05/06/23 13:25 Consult Physician Routine Consulting Provider: Moses Rodriguez Consult Reason/Comments: Severe Triple Vessel Disease Do you want consulting provider notified?: Yes 05/06/23 13:36 Consult Physician Routine Consulting Provider: Moses Rodriguez Consult Reason/Comments: eval. for CABG Do you want consulting provider notified?: Already Contacted 05/06/23 14:22 Consult Physician Routine Consulting Provider: Lilli Sparks Consult Reason/Comments: preop cabg Do you want consulting provider notified?: Already Contacted 05/09/23 12:41 Consult to Anesthesia Routine Consulting Provider: Anesthesia,Services Consult Reason/Comments: Cardiac Surgery Pre-Op Primary care physician: Eric Con[facility] Course: FINAL DIAGNOSIS: 1. Coronary artery disease, non-STEMI this admission 2. Hypertension 3. Hyperlipidemia, cholesterol 242, LDL 170 4. Asthma 5. Lifelong non-cigarette smoker, preoperative FEV1 72% of predicted 6. Daily marijuana use 7. Family history of premature coronary artery disease PRINCIPAL PROCEDURE: 1. Off-pump coronary artery bypass graft 2 with the left internal thoracic artery in situ to the left anterior descending artery, left radial artery from the aorta to the ramus intermedius 2. Endoscopic left radial artery harvest 3. Left atrial appendage ligation with a 35 mm AtriClip 4. Graft flow measurements using the Medistim flowmeter 5. Intraoperative transesophageal echocardiogram performed by anesthesia HISTORY OF PRESENT ILLNESS: This is a 47-year-old gentleman who follows up patient with Dr. Conroy for primary care. This gentleman came in to [facility] emergency room after a 20 minute bout of sub-sternal chest pain after eating spicy foods with no other symptomatology. Troponins were elevated and patient was ruled in for non-STEMI. He was taken to the Analytical Sciences Director which revealed proximal LAD stenosis 70%, mid LAD stenosis 70-80%, mid to distal LAD stenosis 99% with chronic total occlusion of the mid circumflex coronary artery. Consultation was placed to Dr. Villavicencio from cardiothoracic surgery. He was recommended to undergo coronary artery bypass surgery. The usual perioperative course was discussed in detail with the patient and his family, all risks and benefits were explained, all questions were answered, and consent was obtained to proceed with surgery. The patient was kept inpatient due to the nature of his disease process. HOSPITAL COURSE: The patient was brought to the preoperative area 05/10/23, prepared in the usual fashion, and subsequently taken to the operating room where Dr. Villavicencio performed 2 vessel off-pump CABG. Upon completion of surgery the patient was transferred to the cardiovascular intensive care unit where he was recovered and monitored hemodynamically. He was extubated, all lines, tubes, and drips were discontinued when appropriate, and transfer orders were placed for 3 S. cardiac stepdown unit, however there was no bed availability and the patient remained on ICU as a stepdown patient until discharge. His oxygen was titrated down, he continued to work with physical and occupational therapy, he was tolerating oral diet, his pain was controlled, and he was ready to be discharged to home with [facility] on postoperative day #4. He received written and verbal instruction regarding his medications, activity restrictions, signs and symptoms requiring physician notification, and follow-up appointments. Patient Condition at Discharge: Serious Plan - Discharge Summary Discharge Rx Participant: Yes New Discharge Prescriptions: New HYDROcodone/APAP 5-325MG [Cammal 5-325] 1 each PO Q6HR PRN #28 tab PRN Reason: Breakthrough Pain Pantoprazole [Protonix] 40 mg PO AC-BRKFST #30 tab Sennosides-Docusate Sodium [Senokot-S] 2 each PO HS PRN tab PRN Reason: Constipation Aspirin 325 mg PO DAILY #30 tab Atorvastatin [Lipitor] 80 mg PO DAILY #30 tab Metoprolol Tartrate [Lopressor] 25 mg PO BID #60 tab amLODIPine [Norvasc] 5 mg PO DAILY@1200 #30 tab Clopidogrel [Plavix] 75 mg PO DAILY #30 tab Acetaminophen Tab [Tylenol] 650 mg PO Q4HR PRN tab PRN Reason: Fever And/ Or Pain Continue Superbeets 1 tab PO DAILY Discharge Medication List Superbeets 1 tab PO DAILY 05/06/23 [History] Acetaminophen Tab [Tylenol] 650 mg PO Q4HR PRN tab 05/14/23 [Rx] Aspirin 325 mg PO DAILY #30 tab 05/14/23 [Rx] Atorvastatin [Lipitor] 80 mg PO DAILY #30 tab 05/14/23 [Rx] Clopidogrel [Plavix] 75 mg PO DAILY #30 tab 05/14/23 [Rx] HYDROcodone/APAP 5-325MG [Cammal 5-325] 1 each PO Q6HR PRN #28 tab 05/14/23 [Rx] Metoprolol Tartrate [Lopressor] 25 mg PO BID #60 tab 05/14/23 [Rx] Pantoprazole [Protonix] 40 mg PO AC-BRKFST #30 tab 05/14/23 [Rx] Sennosides-Docusate Sodium [Senokot-S] 2 each PO HS PRN tab 05/14/23 [Rx] amLODIPine [Norvasc] 5 mg PO DAILY@1200 #30 tab 05/14/23 [Rx] Follow up Appointment(s)/Referral(s): Felix Choi MD [STAFF PHYSICIAN] - 05/28/23 10:30 am Rehab [facility],Cardiac [NON-STAFF] - 4 Weeks (You will receive a phone call in approximately 4-6 weeks for evaluation for cardiac rehab) Nick Pena NPC [Nurse Practitioner] - 05/22/23 10:30 am (You will be seen in the surgeon's office behind the hospital in [facility], [place], [address] Office phone number is ) Eric Conroy DO [Primary Care Provider] - 1 Week (Office will call with appointment) Ricky Villavicencio MD [STAFF PHYSICIAN] - 06/08/23 9:30 am [facility] Visiting Nurse, [NON-STAFF] - 1-2 Days (To be seen the day after discharge, then 2-3 times per week until you start cardiac rehab) Lilli Sparks MD [STAFF PHYSICIAN] - 06/08/23 8:45 am Ambulatory/Diagnostic Orders: Complete Blood Count w/diff [LAB.AMB] Time Frame: 3 Days, Location: None Selected Comprehensive Metabolic Panel [LAB.AMB] Time Frame: 3 Days, Location: None Selected Activity/Diet/Wound Care/Special Instructions: DISCHARGE INSTRUCTIONS: 1. No driving for 4 weeks, or until physician gives their ok. 2. The patient should sleep in their own bed, no medical bed needed. 3. Stairs are not an issue. If the bedroom is upstairs, it is advised that the patient go up at night and down in the morning for the first week. Go slowly, using handrail and take 1 step at a time. 4. MARIOLA hose are to be worn for 30 days post surgery or until physician discontinues. 5. Heart hugger is to be worn 100% of the time until physician discontinues.(except when showering) 6. No lifting, pushing, or pulling more than 10 pounds for 12 weeks. The physician will advise of any restriction changes. 7. The patient is expected to continue the prescribed walking program. 8. Continue pain control per as needed orders. 9. Continue with incentive spirometry and splinting/heart hugger until otherwise directed by the physician. 10. Must shower daily using liquid antibacterial soap 11. Routine sternal incision care. No powders, lotions, ointments on incisions. No dressings are necessary on incisions unless they are draining. Dermabond tape is to remain on sternal incision until surgeon follow-up. 12. Please call surgeon/BMW SALES CONSULTANT for temp greater than 101 F or purulent drainage from incisions. 13. You should weigh yourself daily, record and bring log with you to follow up appointments. 14. All prescriptions given by surgeon for 30 days. Refills need to be filled through sectional belt mold assembler/primary care physician. 15. A Red armband has been placed on the patient. It should be worn for 30 days post discharge from surgery and will be removed by the cardiac surgeons. If an ER visit is necessary, please make sure the number on the Red armband is called before going to ER. 16. You have been referred to and are expected to begin Cardiac Rehab in approximately 4-6 weeks. 17. Quitting smoking is the most important step you can take to improve your health. For additional information and assistance to quit smoking, please call the [place] tobacco quit line (8-005-LAFY-NOW/ ) or online: https://www.[place].gov/[email or web address] HOME HEALTH SERVICES TO PROVIDE: RN SKILLED HOME CARE SERVICES FOR POST-OP SURGICAL PATIENTS WITH THE FOLLOWING: Coronary Artery Bypass Surgery (CABG), Mitral Valve Replacement/Repair ( MVR), Aortic Valve Replacement/Repair (AVR) RN TO CONTINUE EDUCATION FROM ``ROAD TO A HEALTH HEART PATIENT EDUCATION MANUAL (GIVEN TO PATIENT IN THE HOSPITAL) MEDICATION RECONCILIATION WITH EDUCATION NEEDED ON FIRST HOME VISIT EMPHASIZE IMPORTANCE OF WEARING BREAST SUPPORT/HEART HUGGER ENCOURAGE USE OF INCENTIVE SPIROMETER 10 X EVERY HOUR WHILE AWAKE ENCOURAGE UTILIZATION OF LOWER EXTREMITY COMPRESSION STOCKINGS/MARIOLA HOSE and ELEVATE LEGS ABOVE LEVEL OF HEART WHILE AT REST. ENCOURAGE AMBULATION 3-5x/day INCREASING TOLERATES, WHILE AVOIDING EXTREMES IN TEMPERATURE FREQUENCY: RN TO OPEN THE PATIENT WITHIN 24 HOURS OF DISCHARGE FROM THE HOSPITAL WITH TELEHEALTH INSTALLED AT [facility], RN TO VISIT 2-3 X A WEEK FOR 4 WEEKS ESTABLISHED BY PATIENT NEEDS. LABORATORY: CBC, CMP TO BE DRAWN ON THE THIRD DAY HOME, (RAN STAT) FAX RESULTS TO [phone]. TELEHEALTH PARAMETERS: WEIGHT: NOTIFY MD OF WEIGHT GAIN OF 2 LBS IN 24 HOURS OR 5 LBS IN ONE WEEK HR: NOTIFY MD OF HR <55 BPM OR HR>100 BPM BP: NOTIFY MD IF BP <90/55 OR BP>140/100 O2 SAT: NOTIFY MD IF PO2<93% ON ROOM AIR SEND TELEHEALTH REPORT TO COLLEGE SCOUTING COORDINATOR AND CARDIOVASCULAR SURGEON THE FIRST WEEK OF CARE AND THEN BI-WEEKLY. PLEASE ADDITIONALLY COMMUNICATE ANY ABNORMALS AND NEW FINDINGS TO THE SURGEONS OFFICE. Discharge Disposition: HOME WITH HOME HEALTH SERVICES
[2023-05-14] MEDS: amLODIPine 5 MG TAB PO SCH (11:03)
--- NOTE | 2023-05-14 11:21 | P.PN ---
Subjective Progress Note Date: 05/14/23 47-year-old gentleman with past medical history significant for hypertension, hyperlipidemia and the ER because of chest pain that started last night. Patient stated he was all right last night when he started noticing central chest pain which was severe in intensity, nonradiating, associated with shortn ess of breath. Patient was complaining of nausea that time. No complain of diaphoresis. No aggravating or relieving factors associated with chest pain. Denied any palpitation. Denied any fever or chills. Because of chest pain, patient came to ER. Initial lab work done in the ER showed WBC 6.3, hemoglobin 13.7, platelet count 320, d-dimer 0.34 sodium 1:30, potassium 4, BUN 13, creatinine 1.14, troponin 0.257 EKG done in the ER heart rate 49, slight ST elevation noticeable in leads 1 and aVL, no reciprocal changes or T-wave inversion seen. Chest x-ray done in the ER showed no active disease Patient was started on heparin, ER physician discussed the case with on-call cardiology and EKGs, they recommended starting heparin and admission to medicine service 05/07. Patient seen and examined. Cardiac catheterization done on 05/06 showed Severe and diffuse disease involving the left anterior descending artery with disease in the proximal and mid and mid to distal portion, Chronic total occlusion of the left circumflex, Intermediate disease involving the right coronary artery. 05/08. Patient seen and examined. Denies any episodes of chest pain. Denies any shortness of breath on exertion. Vital signs stable 05/09/2023 Patient is currently lying in the bed. Awake alert and oriented x3. No complaints of chest pain or shortness of breath. No headache or dizziness or lightheadedness. Hemodynamically stable. Patient is scheduled for coronary artery bypass graft tomorrow. Laboratory data showed WBC 7.9 hemoglobin 12.5 and platelets 283 Sodium 138 potassium 4.3 chloride 104 bicarb is 28 BUN 16 and creatinine 1.02. Liver enzymes not elevated. 05/10/2023 Patient is postoperative day 0 Status post coronary artery bypass graft x2 left internal thoracic artery to left anterior descending artery. Left radial artery from aorta to ramus intermedius. Left atrial appendage ligation. Patient was transferred to MICU postoperatively. Patient does have mediastinal chest tubes and left lung chest tube in place. Currently patient is on mechanical ventilator and is also sedated with propofol. On assist control. Chest x-ray showed postoperative changes of CABG Laboratory data showed WBC 6.3 hemoglobin 12.8 and platelets 234 BUN 15 and creatinine 0.85 blood sugar is 94. AST 64 and ALT 15 alk phos 44. 05/11/2023 patient is postoperative day one, seen by cardiac surgery team, chest tube in place. Postprocedure blood work reviewed including CBC which showed hemoglobin of 12.1, white blood cell count of 8.7. Serum chemistry shows sodium 136, creatinine 0.80 blood glucose 124. Patient denies off any difficulty in breathing, does have chest discomfort from surgical site incision 05/12/23: Patient seen and evaluated bedside. Status post chest tube removal. Hematology shows normal WBC count and normal hemoglobin, serum chemistry shows sodium 135 potassium 4.3 BUN 14 creatinine 0.72. Status post removal of chest tubes 05/13/2023: Patient seen and evaluated bedside. Patient downgraded to medical floor. Status post Tee catheter removed patient ambulated in the hallway primary team planning discharge within the next 24 hours. Blood work reviewed 05/14/23: Patient seen and evaluated, getting ready for discharge. Questions answered. CTS team following. Outpatient instructions provided medications provided by primary team no major concerns. Ambulated without any difficulty Objective - Vital Signs Vital signs: Vital Signs Temp 98.7 F 05/14/23 08:00 Pulse 72 05/14/23 08:30 Resp 16 05/14/23 08:30 BP 127/84 05/14/23 08:00 Pulse Ox 97 05/14/23 08:00 FiO2 50 05/10/23 16:21 Intake & Output 05/13/23 05/14/23 05/14/23 18:59 06:59 18:59 Intake Total 540 Output Total 1100 Balance -560 Weight 109.4 kg Intake: Oral 540 Output: Urine 1100 Other: Voiding Method Urinal Urinal Urinal ABP, PAP, CO, CI - Last Documented Arterial Blood Pressure 86/63 Pulmonary Artery Pressure 32/18 Cardiac Output 7.2 Cardiac Index 3.6 - Exam PHYSICAL EXAMINATION: GENERAL: The patient is alert and oriented x3, not in any acute distress. Well developed, well nourished. HEENT: Pupils are round and equally reacting to light. EOMI. CARDIOVASCULAR: S1 and S2 present. Lower extremity edema trace , chest brace in place PULMONARY: Chest tube removed, no respiratory distress ABDOMEN: Soft, nontender, nondistended, normoactive bowel sounds. No palpable organomegaly. MUSCULOSKELETAL: No joint swelling or deformity. EXTREMITIES: No cyanosis, clubbing, or pedal edema. NEUROLOGICAL: Gross neurological examination did not reveal any focal deficits. - Labs CBC & Chem 7: 05/14/23 05:35 05/14/23 05:35 Labs: Abnormal Lab Results - Last 24 Hours (Table) 05/14/23 05/14/23 Range/Units 05:35 05:35 RBC 3.75 L (4.30-5.90) m/uL Hgb 11.7 L (13.0-17.5) gm/dL Hct 36.5 L (39.0-53.0) % Glucose 109 H (74-99) mg/dL Assessment and Plan Assessment: Assessment and plan Status post coronary artery bypass graft x2 with HILTON to LAD and radial to ramus intermedius Non-ST elevation myocardial infarction Multivessel coronary artery disease Hyperlipidemia Mild intermittent bronchial asthma, not active Chronic marijuana smoker Obesity, with a BMI of 35.4 kg/m Patient is currently in MICU. Extubated, weaned off ventilator, on room air Cardiac surgery, Cardiology and pulmonary comanagement Labs and medication were reviewed. Discharge home today with outpatient follow-up with cardiac surgery
--- NOTE | 2023-05-14 15:04 | P.PN ---
Subjective Progress Note Date: 05/14/23 Principal diagnosis: Postoperative day #4, status post off-pump CABG 2 POD #4 off-pump coronary artery bypass graft 2 with left internal thoracic artery (in situ) to the left anterior descending artery, left radial artery from the aorta to the ramus intermedius, endoscopic left radial artery harvest, left atrial appendage ligation with 35 mm AtriClip, graft flow measurements using the Medistim flowmeter, intraoperative transesophageal echocardiogram performed by anesthesia patient was seen today on 05/24/2023, sitting in the chair in the ICU, doing well, hemodynamically stable, not in any distress, chest x-ray is basically unremarkable, labs were reviewed and unremarkable, patient is considered for discharge planning today. No specific complaints. Objective - Vital Signs Vital signs: Vital Signs Temp 98.7 F 05/14/23 08:00 Pulse 72 05/14/23 08:30 Resp 16 05/14/23 08:30 BP 127/84 05/14/23 08:00 Pulse Ox 97 05/14/23 08:00 FiO2 50 05/10/23 16:21 Intake & Output 05/13/23 05/14/23 05/14/23 18:59 06:59 18:59 Intake Total 540 Output Total 1100 Balance -560 Weight 109.4 kg Intake: Oral 540 Output: Urine 1100 Other: Voiding Method Urinal Urinal Urinal ABP, PAP, CO, CI - Last Documented Arterial Blood Pressure 86/63 Pulmonary Artery Pressure 32/18 Cardiac Output 7.2 Cardiac Index 3.6 - Exam Physical Exam revealed a 47-year-old white male in no distress Head: Atraumatic, normocephalic HEENT:[Neck is supple.] [No neck masses.] [No thyromegaly.] [No JVD.] Chest: [Clear throughout, no crackles, no rhonchi, no wheezes.] Cardiac Exam: [Normal S1 and S2, no S3 gallop, no murmur.] Abdomen: [Soft, nontender, no megaly, no rebound, no guarding, normal bowel sounds.] Extremities: [No clubbing, no edema, no cyanosis.] Neurological Exam: [No focal neurologic deficit.] Alert oriented 3 no focal deficits Psychiatric: Normal mood affect and normal mental status examination. - Labs CBC & Chem 7: 05/14/23 05:35 05/14/23 05:35 Labs: Abnormal Lab Results - Last 24 Hours (Table) 05/14/23 05/14/23 Range/Units 05:35 05:35 RBC 3.75 L (4.30-5.90) m/uL Hgb 11.7 L (13.0-17.5) gm/dL Hct 36.5 L (39.0-53.0) % Glucose 109 H (74-99) mg/dL Assessment and Plan Assessment: Impression: Coronary artery disease, non-STEMI this admission, status post 2 vessel CABG postoperative day #4 Hypertension Hyperlipidemia Mild intermittent asthma Lifelong nonsmoker (cigarettes), preoperative FEV1 72% of predicted Daily marijuana use Family history of CAD, premature CAD Recommendation: Continue to maximize medical therapy including aspirin statins Plavix and beta blockers Continue incentive spirometry Agree with discharge planning and follow-up on outpatient basis. Time with Patient: Less than 30
== END 2023-05-14 11:45 | disposition home health service (06) | DRG 234 ==
LOC: EC 23:44 → 3SCARD 05-06 01:36 → 2SICU 05-06 12:47 → 3SCARD 05-06 12:56 → 2SICU 05-06 13:34 → 3SCARD 05-06 16:10 → 2SICU 05-10 07:05
PROVIDERS: ADMIT Thoracic Surgery (Cardiothoracic Vascular Surgery); ATTEND Thoracic Surgery (Cardiothoracic Vascular Surgery)
PROC: 4A023N7 Measurement of Cardiac Sampling and Pressure, Left Heart, Percutaneous Approach (ICD-10-PCS; 2023-05-06)
PROC: B2111ZZ Fluoroscopy of Multiple Coronary Arteries using Low Osmolar Contrast (ICD-10-PCS; 2023-05-06)
PROC: 03BC4ZZ Excision of Left Radial Artery, Percutaneous Endoscopic Approach (ICD-10-PCS; 2023-05-10)
PROC: 02L70CK Occlusion of Left Atrial Appendage with Extraluminal Device, Open Approach (ICD-10-PCS; 2023-05-10)
PROC: 4A0305C Measurement of Arterial Flow, Coronary, Open Approach (ICD-10-PCS; 2023-05-10)
PROC: B24BZZ4 Ultrasonography of Heart with Aorta, Transesophageal (ICD-10-PCS; 2023-05-10)
PROC: 30233J1 Transfusion of Nonautologous Serum Albumin into Peripheral Vein, Percutaneous Approach (ICD-10-PCS; 2023-05-10)
PROC: 02100AW Bypass Coronary Artery, One Artery from Aorta with Autologous Arterial Tissue, Open Approach (ICD-10-PCS; principal; 2023-05-10 08:00)
PROC: 02100ZC Bypass Coronary Artery, One Artery from Thoracic Artery, Open Approach (ICD-10-PCS; 2023-05-10 08:00)
DX: I21.3 ST elevation (STEMI) myocardial infarction of unspecified site (principal); D62 Acute posthemorrhagic anemia; I11.0 Hypertensive heart disease with heart failure; I25.119 Atherosclerotic heart disease of native coronary artery with unspecified angina pectoris; Z68.35 Body mass index [BMI] 35.0-35.9, adult; J45.20 Mild intermittent asthma, uncomplicated; E66.9 Obesity, unspecified; E78.5 Hyperlipidemia, unspecified; H91.90 Unspecified hearing loss, unspecified ear; H93.13 Tinnitus, bilateral; K21.9 Gastro-esophageal reflux disease without esophagitis; I44.0 Atrioventricular block, first degree; Z82.49 Family history of ischemic heart disease and other diseases of the circulatory system; Z28.310 Unvaccinated for COVID-19; Z91.041 Radiographic dye allergy status; I25.2 Old myocardial infarction; Z87.820 Personal history of traumatic brain injury; Z86.16 Personal history of COVID-19
CPT/HCPCS: 36415; 71045; 71046; 71250; 80048; 80053; 80061; 80074; 81003; 82150; 82330; 82805; 83036; 83690; 83735; 84439; 84443; 84484; 85025; 85027; 85379; 85610; 85730; 86850; 86900; 86901; 86920; 87070; 93005; 93306; 93458; 93880; 93970; 94002; 94150; 94640; 96374; 96375; 96376; 99291

== ENCOUNTER 2024-08-30 18:12 | Observation (INO) | payer OTHER ==
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
[2024-08-30] MEDS: SODIUM CHLORIDE 0.9% 1,000 ML IV STA (18:53)
[2024-08-30] MEDS: diphenhydrAMINE 50 MG/ML 1 ML VIAL IVP STA (18:54)
[2024-08-30] MEDS: methylPREDNISolone SOD SUCCI 125 MG/2 ML VIAL IV STA (18:54)
[2024-08-30] MEDS: FAMOTIDINE 20 MG/2 ML VIAL IV STA (18:54)
[2024-08-30 18:56] LABS: Basophils % (A) 0 %; Eosinophils # (A) 0.1 k/uL (0-0.7); Eosinophils % (A) 2 %; HCT 44.1 % (39.0-53.0); HGB 14.3 gm/dL (13.0-17.5); Lymphocytes # (A) 1.7 k/uL (1.0-4.8); Lymphocytes % (A) 24 %; MCH 30.1 pg (25.0-35.0); MCHC 32.4 g/dL (31.0-37.0); MCV 93.2 fL (80.0-100.0); Mean Platelet Volume 6.6; Monocytes # (A) 0.5 k/uL (0-1.0); Monocytes % (A) 7 %; Neutrophils # (A) 4.5 k/uL (1.3-7.7); Neutrophils % (A) 65 %; Platelet Count 340 k/uL (150-450); RBC 4.74 m/uL (4.30-5.90); RDW 12.9 % (11.5-15.5); WBC 6.9 k/uL (3.8-10.6)
[2024-08-30] MEDS: DIPH,PERTUS(ACELL)TETVAC-LF 0.5 ML VIAL IM ONE (18:56)
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
[2024-08-30 19:03] LABS: INR 0.9 (<1.2); Partial Thromboplastin Time 22.8 sec (22.0-30.0); Prothrombin Time 10.5 sec (10.0-12.5)
[2024-08-30 19:08] LABS: ALT 38 U/L (4-49); AST 29 U/L (17-59); African American GFR (CKD) 90 (>60 ml/min/1.73 sqM); Albumin 4.7 g/dL (3.5-5.0); Alcohol <10 mg/dL; Alkaline Phosphatase 55 U/L (38-126); Anion Gap 12 mmol/L; Blood Urea Nitrogen 18 mg/dL (9-20); Calcium 9.4 mg/dL (8.4-10.2); Carbon Dioxide 23 mmol/L (22-30); Chloride 103 mmol/L (98-107); Glucose 88 mg/dL (74-99); Non-African American GFR(CKD) 77 (>60 ml/min/1.73 sqM); Potassium 4.5 mmol/L (3.5-5.1); Sodium 138 mmol/L (137-145); Total Bilirubin 0.7 mg/dL (0.2-1.3); Total Protein 7.5 g/dL (6.3-8.2)
[2024-08-30] MEDS ORDERED: NALOXONE 0.4 MG/ML 1 ML VIAL IV PRN (19:19)
[2024-08-30] MEDS ORDERED: HYDROmorphone 1 MG/ML 1 ML SYRINGE IVP PRN ×2 (19:19→20:51)
[2024-08-30] MEDS ORDERED: ONDANSETRON 4 MG/2 ML VIAL IVP PRN (19:19)
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
[2024-08-30] MEDS ORDERED: SODIUM CHLORIDE 0.9% 1,000 ML IV SCH (19:30)
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
[2024-08-30] MEDS ORDERED: fentaNYL (PF) 50 MCG/ML 2 ML AMP ONE (20:00)
[2024-08-30] MEDS ORDERED: SUCCINYLCHOLINE CHLORIDE 200 MG/10 ML VIAL IV ONE (20:00)
[2024-08-30] MEDS ORDERED: MIDAZOLAM 2 MG/2 ML VIAL ONE (20:00)
[2024-08-30] MEDS ORDERED: LIDOCAINE 1% INJ 10MG/ML (20 ML MDV) ONE (20:00)
[2024-08-30] MEDS ORDERED: PROPOFOL 10 MG/ML 20 ML VIAL IV ONE (20:00)
[2024-08-30] MEDS: SODIUM CHLORIDE 0.9% 1,000 ML IV ONE (20:01)
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
[2024-08-30] MEDS: BACITRACIN ZINC 500 UNIT/GM OINT 28.4 GM TUBE TOPICAL ONE (20:43)
[2024-08-30] MEDS: LACTATED RINGERS 1,000 ML IV ONE (20:48)
[2024-08-30 22:31] LABS: Basophils % (A) 0 %; Eosinophils % (A) 0 %; HCT 40.7 % (39.0-53.0); HGB 13.3 gm/dL (13.0-17.5); Lymphocytes # (A) 0.6 k/uL (1.0-4.8); Lymphocytes % (A) 6 %; MCH 30.5 pg (25.0-35.0); MCHC 32.6 g/dL (31.0-37.0); MCV 93.6 fL (80.0-100.0); Mean Platelet Volume 6.5; Monocytes # (A) 0.2 k/uL (0-1.0); Monocytes % (A) 2 %; Neutrophils # (A) 9.1 k/uL (1.3-7.7); Neutrophils % (A) 91 %; Platelet Count 314 k/uL (150-450); RBC 4.35 m/uL (4.30-5.90)
[2024-08-30] MEDS: SODIUM CHLORIDE 0.9% 1,000 ML IV SCH (23:30)
[2024-08-31] MEDS: HYDROcodone/APAP 10-325MG 1 EACH TAB PO PRN (04:13)
[2024-08-31 05:38] VITALS: RESP 16
[2024-08-31 06:52] LABS: Basophils % (A) 0 %; Eosinophils % (A) 0 %; HCT 41.3 % (39.0-53.0); HGB 13.4 gm/dL (13.0-17.5); Lymphocytes # (A) 0.6 k/uL (1.0-4.8); Lymphocytes % (A) 7 %; MCH 30.7 pg (25.0-35.0); MCHC 32.3 g/dL (31.0-37.0); MCV 94.9 fL (80.0-100.0); Mean Platelet Volume 6.8; Monocytes # (A) 0.1 k/uL (0-1.0); Monocytes % (A) 2 %; Neutrophils # (A) 7.8 k/uL (1.3-7.7); Neutrophils % (A) 91 %; Platelet Count 298 k/uL (150-450); RBC 4.36 m/uL (4.30-5.90); RDW 12.9 % (11.5-15.5); WBC 8.5 k/uL (3.8-10.6)
[2024-08-31 07:03] LABS: AST 27 U/L (17-59); African American GFR (CKD) >90 (>60 ml/min/1.73 sqM); Albumin 4.1 g/dL (3.5-5.0); Alkaline Phosphatase 48 U/L (38-126); Anion Gap 11 mmol/L; Blood Urea Nitrogen 17 mg/dL (9-20); Calcium 9.2 mg/dL (8.4-10.2); Carbon Dioxide 21 mmol/L (22-30); Chloride 104 mmol/L (98-107); Glucose 240 mg/dL (74-99); Non-African American GFR(CKD) 88 (>60 ml/min/1.73 sqM); Phosphorus 2.7 mg/dL (2.5-4.5); Sodium 136 mmol/L (137-145); Total Bilirubin 0.3 mg/dL (0.2-1.3); Total Protein 6.8 g/dL (6.3-8.2)
[2024-08-31 07:10] LABS: ALT 36 U/L (4-49)
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
[2024-08-31 10:27] VITALS: BP 116/71; PULSE 82; TEMP 98.2
--- NOTE | 2024-08-31 10:30 | P.OP ---
Date of Procedure: 08/31/24 Preoperative Diagnosis: Traumatic Neck Wound Postoperative Diagnosis: Traumatic Neck Wound Procedure(s) Performed: Washout and Closure of Traumatic Neck Wound Anesthesia: LAURA Surgeon: Michele Mccurdy Pathology: none sent Condition: stable Disposition: PACU Description of Procedure: The patient was taken to the operating suite and placed in the supine position. After anesthesia was given the patient was intubated. The patient was prepped and draped in usual sterile fashion. A timeout was perfomed. The neck wound was about 12-15 cm. It was washed out with copious amounts of saline. The wound was closed in two layers with #2-0 Vicryl and #5-0 prolene. A sterile dressing was applied. The patient tolerated the procedure well and was sent to PACU in stable condition.
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
== END 2024-08-31 12:32 | disposition home or self-care (01) ==
LOC: EC 18:12 → 3SCARD 19:21
PROVIDERS: ADMIT Surgery; ATTEND Surgery
DX: S11.91XA Laceration without foreign body of unspecified part of neck, initial encounter (principal); V86.92XA Unspecified occupant of snowmobile injured in nontraffic accident, initial encounter; I10 Essential (primary) hypertension; I25.10 Atherosclerotic heart disease of native coronary artery without angina pectoris; E78.5 Hyperlipidemia, unspecified; K21.9 Gastro-esophageal reflux disease without esophagitis; I25.2 Old myocardial infarction; Z23 Encounter for immunization; Z95.1 Presence of aortocoronary bypass graft; Z79.02 Long term (current) use of antithrombotics/antiplatelets; Z79.899 Other long term (current) drug therapy
CPT/HCPCS: 96365; 90471; 96375; 99291; 36415; 93005; 86900; 86901; 80053 ×2; 83605; 83735; 84100; 84484; 85025 ×2; 85610; 85730; 86850; 80320; 72170; 71045; 72125; 70496; 70450; 70498; 90715; 12045; G0378 ×2; L0120; J2250; J0330; J1200; J0690 ×3; J2003; J3010; J3490; J2704; Q9967; J2919

== ENCOUNTER → 2025-01-26 | Outpatient (CLI) | payer BC ==
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
== END | disposition home or self-care (01) ==
LOC: RADMRIMAIN 19:20
PROVIDERS: ATTEND Orthopaedic Surgery
DX: M54.12 Radiculopathy, cervical region (principal); G44.86 Cervicogenic headache
CPT/HCPCS: 72141